=== PATIENT | female | born 1985 | race Caucasian/White ===

== ENCOUNTER 2017-07-29 10:15 | Outpatient (RCR) | payer OTHER, SELFPAY ==
--- NOTE | 2017-06-30 11:35 | MASS.EVAL ---
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 She reports today with the symptoms of having neck and shoulder pain and leg pain on the lateral sides bilaterally. Objective: The first treatment consisted of a one hour massage to the full body. Upon observation I found that she had high tension in her head neck and shoulder area. She had knots along the medial borders of her scapulaes. I also found that she high tension in her iltiotibial bands. Her cervical through lumbar paraspinals were tight and ropy as well as her latissimus dorsi muscles. Assessment: The patient seemed to easily relax and was able to tolerate deep pressure when needed. I was able to achieve a moderate release overall. Plan: The plan of care was reviewed with the patient and she is to be seen monthly for a total of ten 1-hour sessions for the year 2018. Sanjana Berrios LMT
--- NOTE | 2018-04-24 13:26 | MASS.DISCH ---
Massage Therapy Discharge Summary: Discharge Date: 04/24/2018 Lori was seen for a massotherapy evaluation on 06/29/2017 with the diagnosis of piriformis syndrome. She was treated with two sessions of massage therapy consisting of moderate to deep pressure soft tissue techniques, myofascial release and trigger point compression to her cervical, thoracic, lower back, upper extremities and hips. Lori responded well to the therapy by reporting decreased tension and pain throughout her neck, shoulders, lower back and hips. Her goals for therapy were not met due to no follow up treatment sessions performed. At this time this patient is being discharged from our care at [facility] facility.
== END 2017-07-29 19:00 | disposition home or self-care (01) ==
LOC: MASS 10:15
PROVIDERS: Family Provider Family Medicine; PCP Family Medicine; Visit Provider Family Medicine
DX: G57.00 Lesion of sciatic nerve, unspecified lower limb (principal)
CPT/HCPCS: 97124

== ENCOUNTER 2017-11-13 01:26 | Observation (INO) | payer OTHER, SELFPAY ==
[2017-11-13] VITALS (11 sets, daily range): BP systolic 96–109; BP diastolic 40–62; PULSE 77–89; RESP 16–18; TEMP 36.6–37.6; O2SAT 95–100; BMI 22.1; BMI 23.6
--- NOTE | 2017-11-13 01:47 | EKG12_ITS ---
Test Reason : N/V Blood Pressure : / mmHG Vent. Rate : 078 BPM Atrial Rate : 078 BPM P-R Int : 182 ms QRS Dur : 090 ms QT Int : 386 ms P-R-T Axes : -39 052 -05 degrees QTc Int : 440 ms Unusual P axis, possible ectopic atrial rhythm Abnormal ECG Confirmed by EVELYN MCCARTY, AMBER ([id number]), television news video editor NANCY SOLIS ([id number]) on 11/16/2017 1:14:08 PM Referred By: DANIELA Confirmed By:AMBER RIVAS MD
[2017-11-13 02:03] LABS: Absolute Lymphocyte Count 0.71 X10^3/ul (0.83-4.51); Absolute Neutrophil Count 13.3 X10^3/uL (2.0-7.7); Basophil# 0.01 X10^3/uL; Basophil% 0.1 % (0-1); Eosinophil# 0.03 X10^3/uL; Eosinophils% 0.2 % (0-5); Hematocrit 42.5 % (37-47); Hemoglobin 14.2 g/dl (12.0-15.0); Lymphocyte # 0.71 X10^3/ul (4.0); Mean Corp Hgb Conc 33.4 g/gl (32-36); Mean Corpuscular Hgb 32.7 pg (27.0-32.0); Mean Corpuscular Volume 97.9 fL (81-99); Mean Platelet Vol. 10.3 fl (6.2-12.0); Monocyte# 0.28 X10^3/uL; Neutrophil # 13.27 X10^3/uL (2.7-7.7); Neutrophil % 92.6 % (47-70); Platelet Count 195 K/mm3 (150-450); RBC Distribution Width CV 12.4 % (11.6-14.6); RBC Distribution Width SD 44.6 fl (35.1-43.9); Red Blood Count 4.34 M/mm3 (4.2-5.4); White Blood Count 14.3 K/mm3 (4.4-11.0)
[2017-11-13] MEDS: 0.9% Normal Saline 1,000 ML 1000 ML IV (02:04)
[2017-11-13] MEDS: proMETHazine 25 MG/ML Syringe 6.25 MG IV (02:05)
[2017-11-13 02:06] LABS: POSITIVE COUNT NO; POSITIVE DIFFERENTIAL NO; POSITIVE MORPHOLOGY NO
--- NOTE | 2017-11-13 02:31 | ED.VISSUMM ---
- ER Visit Summary Date of Service: 11/13/17 Chief Complaint: Vomiting and diarrhea History of Present Illness: The patient is a 32 F presenting with vomiting and diarrhea. Started earlier this evening. She states she has had multiple episodes of both vomiting and diarrhea. She has no known sick contacts. She was concerned about possibility of food poisoning. She states she ate a chocolate covered blueberry and thought that this may be related. She has mild diffuse abdominal cramping. She is unsure if she could be . After having several episodes of both vomiting and diarrhea she had a syncopal episode. She states she passed out twice and then later woke up on the floor of the bathroom. Her heard a noise and found her passed out on the floor. She states she passed out a total of 4-5 times. She denies chest pain or shortness of breath. Physical Examination: Vitals are stable. Patient is afebrile. Alert no acute distress. HEENT exam dry mucous membranes Neck is supple. Lungs are clear and equal bilaterally. Heart is regular rate and rhythm. Abdomen is soft mild diffuse tenderness with no rebound or guarding Extremities are unremarkable. Skin is warm and dry. No focal neurologic deficit. Remainder of exam is unremarkable. Emergency Department Course and Treatment: Patient is given IV fluids, Phenergan. EKG shows a regular rhythm with inverted P waves inferiorly. CBC shows white count of 14.3. Chemistries show glucose 147. Lipase is 110. Urinalysis unremarkable. Troponin is negative. D-dimer negative. Patient continues to have dizziness and nausea. Will discuss with hospitalist for admission. Disposition: Observation Impression: Vomiting and diarrhea, syncope, abnormal EKG This note was generated with [employer] dictation software. It may contain incorrect words, spelling, and punctuation that were not noted in review of the chart prior to signing ED Disposition - Plan for ED Patient: Chief Complaint: Nausea/Vomiting/Diarrhea Referrals: Jermain Mejia MD [Primary Care Provider] -
[2017-11-13 02:33] LABS: ALB/GLOB Ratio 1.1 RATIO (0.9-2.4); AST(SGOT) 18 U/L (15-37); Alanine Aminotransfer ALT/SGPT 20 U/L (13-56); Albumin, Serum 4.1 g/dL (3.2-5.0); Alkaline Phosphatase 62 U/L (45-117); Anion Gap 7 (5-15); BUN 17 mg/dL (7-18); BUN/Creat Ratio 19.8 RATIO (10-20); Calcium,Total 8.4 mg/dL (8.5-10.1); Chloride 108 mmol/L (98-107); Creatinine, Serum 0.86 mg/dL (0.55-1.02); EST Glomerular Filtration Rate 82 mL/min (>60); Est Glom Filt Rate - Afr Amer 100 mL/min (>60); Estimated Creatinine Clearance 86.07 ml/min; Globulin 3.7 g/dL (2.2-4.2); Glucose 147 mg/dL (74-106); Lipase 110 U/L (73-393); Potassium 3.8 mmol/L (3.5-5.1); Protein, Total 7.8 g/dL (6.4-8.2); Sodium Level 141 mmol/L (136-145)
[2017-11-13 02:35] LABS: Pregnancy, Serum, hCG Quali. NEGATIVE Negative (0-9 Nonpreg)
[2017-11-13 02:47] LABS: Bacteria 0 SEEN /hpf (None Seen); Red Blood Cells-Urine 0 SEEN /hpf (0-5)
[2017-11-13 02:49] LABS: Color, Urine Yellow (Yellow); Glucose, Dipstick Normal (Normal); Ketone-Dipstick Negative (Negative); Leukocyte Esterase-Dipstick Negative /ul (Negative); Nitrite-Dipstick Negative (Negative); Occult Blood-Urine Negative /ul (Negative); Protein-Dipstick 15 mg/dl (Negative); Urine Bilirubin Dipstick Negative (Negative); Urine Clarity Clear (Clear); Urine Urobilinogen Normal (Normal)
[2017-11-13 02:56] LABS: Mucous, Urine 3+ /hpf (<or=2+); Squamous Epithelial Cells - UA 5-10 SEEN /hpf (5-10); White Blood Cells 0-5 SEEN /hpf (0-5)
[2017-11-13] MEDS: 0.9% Normal Saline 1,000 ML 999 ML IV (03:00)
--- NOTE | 2017-11-13 05:19 | PCM.HP.STD ---
Problem List (1) Diarrhea Status: Acute (2) N&V (nausea and vomiting) Status: Acute (3) Syncope Status: Acute History of Present Illness Date of Admission: 11/13/17 Chief Complaint: Syncope The patient is a 32 year old female admitted for syncope. She is orthostatic. She had n/v and diarrhea after eating chocolate covered blueberry. She had food poisoning before but she was never orthostatic. She has diffuse abdominal pain that started around this evening. Abdominal pain is dull aching and cramping. Pain is mild to moderate. Pain is constant. Nothing made it better or worse. Each time she tried to get up, she got dizzy. She passed out multiple times. She knew she was going to pass out the first time but afterward, she does not remember and her found her on the floor. Past Medical History Allergies No Known Allergies Allergy (Verified 11/13/17 01:27) Home Medications: Ambulatory Orders Medication Instructions Recorded Vits [Prenatabs FA ] 1 tablet PO DAILY 08/04/16 Lactobacillus Combination No.4 1 each PO DAILY 11/13/17 [Probiotic] Lives: Spouse/ Significant Other Smoking Status: Never smoker Tobacco Use: Non-smoker Alcohol: None Drugs: None - *Family History Maternal History Items: No pertinent history Review of Systems Constitutional: Denies: Chills, Fever, Weight Change HEENT: Denies: Head Aches, Sinus Congestion, Sinus Drainage Cardiovascular: Denies: Chest Pain, Palpitations Respiratory: Denies: Cough, Shortness of breath at rest, Sputum production Gastrointestinal: Reports: Abdominal Pain, Diarrhea, Nausea, Vomiting Genitourinary: Denies: Dysuria Musculoskeletal: Denies: Joint Pain, Joint Tenderness Skin: Denies: Rash, Wounds Neurological: Denies: Numbness, Tingling, Focal weakness Psychiatric: Denies: Anxiety, Depression, Homicidal Ideations, Suicidal Ideations Hematologic/ Lymphatic: Denies: Easy Bruising, Easy Bleeding VTE Information - Inpt Only VTE Present on Admission: No VTE Mechan Device Prophylaxis: SCD's VTE Pharm Prophylaxis ordered?: Yes Patient Problems: Active and Suspected Problems Diarrhea (Acute) N&V (nausea and vomiting) (Acute) Syncope (Acute) - Physical Exam General: Alert, Oriented x3, Cooperative HEENT: Atraumatic, PERRLA, EOMI, Normocephalic Neck: Supple, No JVD, Negative Carotid Bruits Lungs: Clear to auscultation, Normal air movement Cardiovascular: Regular rate, No murmurs Abdomen: Bowel Sounds Present, Soft, Non Tender Extremities: No edema, Capillary Refill Less than 3 Seconds Skin: No rashes, No breakdown Musculoskeletal: No Tenderness to Palpation of Joints or Extremities Neurological: Cranial nerves II-XII grossly intact Psych/Mental Status: Normal Affect, Appropriate Vital Signs Temp Pulse Resp BP Pulse Ox 97.8 F 86 17 97/44 L 95 11/13/17 01:28 11/13/17 05:16 11/13/17 05:16 11/13/17 05:16 11/13/17 05:16 Oxygen Delivery Method Room Air Weight: 60.4 kg Body Mass Index (BMI) 22.1 Laboratory Tests Past 24 Hrs 11/13/17 11/13/17 11/13/17 01:25 01:25 01:25 WBC 14.3 H RBC 4.34 Hgb 14.2 Hct 42.5 MCV 97.9 MCH 32.7 H MCHC 33.4 RDW 12.4 RDW Differential 44.6 H Plt Count 195 MPV 10.3 Immature Gran % (Auto) 0.100 Neut % (Auto) 92.6 H Lymph % (Auto) 5.0 L [place] % (Auto) 2.0 Eos % (Auto) 0.2 Baso % (Auto) 0.1 Absolute Neuts (auto) 13.3 H Absolute Lymphs (auto) 0.71 L Total Counted Not Reportable D-Dimer Quant (PE/DVT) 0.30 Sodium 141 Potassium 3.8 Chloride 108 H Carbon Dioxide 26.0 Anion Gap 7 BUN 17 Creatinine 0.86 Estim Creat Clear Calc 86.07 Est GFR (MDRD) Af Amer 100 Est GFR (MDRD) Non-Af 82 BUN/Creatinine Ratio 19.8 Glucose 147 H Calcium 8.4 L Total Bilirubin 0.90 AST 18 ALT 20 Alkaline Phosphatase 62 Troponin I Total Protein 7.8 Albumin 4.1 Globulin 3.7 Albumin/Globulin Ratio 1.1 Lipase 110 Serum , Qual Urine Color Urine Clarity Urine pH Ur Specific [place] Urine Protein Urine Glucose (UA) Urine Ketones Urine Occult Blood Urine Nitrite Urine Bilirubin Urine Urobilinogen Ur Leukocyte Esterase Urine RBC Urine WBC Ur Squamous Epith Cells Urine Bacteria Urine Mucus 11/13/17 11/13/17 11/13/17 01:25 02:41 02:54 WBC RBC Hgb Hct MCV MCH MCHC RDW RDW Differential Plt Count MPV Immature Gran % (Auto) Neut % (Auto) Lymph % (Auto) [place] % (Auto) Eos % (Auto) Baso % (Auto) Absolute Neuts (auto) Absolute Lymphs (auto) Total Counted D-Dimer Quant (PE/DVT) Sodium Potassium Chloride Carbon Dioxide Anion Gap BUN Creatinine Estim Creat Clear Calc Est GFR (MDRD) Af Amer Est GFR (MDRD) Non-Af BUN/Creatinine Ratio Glucose Calcium Total Bilirubin AST ALT Alkaline Phosphatase Troponin I < 0.015 Total Protein Albumin Globulin Albumin/Globulin Ratio Lipase Serum , Qual NEGATIVE Urine Color Yellow Urine Clarity Clear Urine pH 6.0 Ur Specific [place] 1.020 Urine Protein 15 H Urine Glucose (UA) Normal Urine Ketones Negative Urine Occult Blood Negative Urine Nitrite Negative Urine Bilirubin Negative Urine Urobilinogen Normal Ur Leukocyte Esterase Negative Urine RBC 0 SEEN Urine WBC 0-5 SEEN Ur Squamous Epith Cells 5-10 SEEN Urine Bacteria 0 SEEN Urine Mucus 3+ Assessment/Plan All Active Problems Diarrhea (Acute) N&V (nausea and vomiting) (Acute) Syncope (Acute) 32 year old female admitted for syncope. 1) Syncope: Probably orthostatic hypotension. Will hydrate. Will also get trops. EKG disclosed inverted P waves inferiorly. Will get ECHO. 2) Diarrhea: Stool cultures and C.diff pending. Hydration. Monitor. 3) N/V: Probably food poisoning. Hydration. Monitor. 4) Prophylaxis: SCD / heparin.
[2017-11-13] MEDS: 0.9% Normal Saline 1,000 ML 150 ML IV ×2 (06:20→13:15)
[2017-11-13 06:58] LABS: Magnesium 1.8 mg/dL (1.6-2.6); Thyroid Stim Hormone (TSH) 0.45 uIU/mL (0.358-3.74)
[2017-11-13] MEDS: Prenatal Vits Tablet 1 TABLET PO (10:33)
--- NOTE | 2017-11-13 17:07 | DCINST_ITS ---
- Discharge Diagnoses Current Active Problems: Current Active and Chronic Problems Diarrhea (Acute) N&V (nausea and vomiting) (Acute) Syncope (Acute) You will use the following diet at home:: No restrictions Your food should be the consistency of: Regular Your liquids should be the consistency of: Regular/Thin Discharge Activity: Return to Normal Activity Return to work on:: 11/16/17 Weight Bearing Status: Full weight bearing Allergies/Adverse Reactions: Allergies No Known Allergies Allergy (Verified 11/13/17 01:27) Medications to take at Discharge Vits [Prenatabs FA ] 1 tablet PO DAILY 08/04/16 Lactobacillus Combination No.4 [Probiotic] 1 each PO DAILY 11/13/17 Ondansetron HCl [Zofran] 4 - 8 mg PO Q6H PRN PRN #15 tablet 11/13/17 The following prescriptions were given: Ondansetron HCl [Zofran] 4 - 8 mg PO Q6H PRN PRN #15 tablet PRN Reason: Nausea Primary Care Physician: Jermain Mejia MD [Primary Care Provider] - Please follow up with your Primary Care Physician in: as directed Test Results: Test results from this visit will be discussed in further detail at your follow- up appointment, if applicable.
--- NOTE | 2017-11-14 17:54 | PCM.DC.SUM ---
Discharge Date and Diagnosis Date of Admission: 11/13/17 Date of Discharge: 11/13/17 - Primary Discharge Diagnosis #1 acute viral gastroenteritis #2 syncope secondary to orthostasis from volume depletion Hospital Course and Treatment Operations: None Procedures: None Summary of Care Provided: The patient is a 32 year old F who was seen in the emergency room at [facility] with a chief complaint of vomiting and diarrhea along with an episodes of syncope after several episodes of vomiting and diarrhea. Patient stated that she passed out on the floor of her bathroom. She stated she thought she passed out a total of 4-5 times. Workup in the emergency room revealed the patient's temperature to be normal, blood pressure on admission to the emergency room was 109/62, labs were obtained which showed an elevated white blood cell count 14.3, BUN and creatinine were within normal limits. Patient was placed and observation status on MedSurg 3 and given IV fluids, stool culture was ordered and finally obtained from the patient, she had no more episodes of vomiting but one episode of loose stool while she was in the hospital. In the afternoon on 11/13/17, patient was seen and examined, at that time she was able to keep liquids down and some foods down, she had no complaints of nausea and there was no more episodes of diarrhea. Patient was felt to be in stable condition for discharge home, it was believed she had a viral gastroenteritis. Discharge Activity: Return to Normal Activity Return to work on:: 11/16/17 Weight Bearing Status: Full weight bearing Home Medications: Medications to take at Discharge Vits [Prenatabs FA ] 1 tablet PO DAILY 08/04/16 Lactobacillus Combination No.4 [Probiotic] 1 each PO DAILY 11/13/17 Ondansetron HCl [Zofran] 4 - 8 mg PO Q6H PRN PRN #15 tablet 11/13/17 Following Prescrptions Were Given to Patient: Ondansetron HCl [Zofran] 4 - 8 mg PO Q6H PRN PRN #15 tablet PRN Reason: Nausea Primary Care Physician: Jermain Mejia MD [Primary Care Provider] - Please follow up with your Primary Care Physician in: as directed Disposition: Home Minutes spent on discharge:: 30 Patient Condition:: Stable Medical Necessity - Tobacco Use Smoking Status: Never smoker Tobacco Use: Non-smoker Meaningful Use Info Meaningful Use Diagnoses (Choose all that apply): None applicable Code Visit OBSV E&M: 80232 Observ/hosp same date L3
== END 2017-11-13 19:02 | disposition home or self-care (01) ==
LOC: ED 02:12 → MS3 05:31
PROVIDERS: Admitting Provider Internal Medicine; Emergency Provider Emergency Medicine; Family Provider Family Medicine; PCP Family Medicine; Visit Provider Internal Medicine
DX: A08.4 Viral intestinal infection, unspecified (principal); R55 Syncope and collapse; R94.31 Abnormal electrocardiogram [ECG] [EKG]; E86.9 Volume depletion, unspecified
CPT/HCPCS: 36415; 80053; 81001; 83630; 83690; 83735; 84443; 84484; 84703; 85025; 85379; 87493; 87506; 93005; 96361; 96374; 99218; 99283; J7030; P9612; G0378

== ENCOUNTER → 2017-12-06 14:07 | Outpatient (CLI) | payer OTHER, SELFPAY ==
[2017-12-06 16:17] LABS: Vitamin D,25 Hydroxy 34.9 ng/mL (29.95-100.01)
[2017-12-09 13:18] LABS: EBV Acute VCA IgM < 36.0 U/mL (0.0-35.9); EBV Early Antigen IgG <9.0 U/mL (0.0-8.9); EBV-VCA IgG > 600.0 U/mL (0.0-17.9)
== END ==
PROVIDERS: Family Provider Family Medicine; PCP Family Medicine; Visit Provider Family Medicine
DX: R53.83 Other fatigue (principal)
CPT/HCPCS: 36415; 82306; 82533; 86663; 86664; 86665

== ENCOUNTER → 2017-12-28 13:24 | Outpatient (CLI) | payer OTHER, SELFPAY ==
[2017-12-28 17:59] LABS: Follicle Stimulating Hormone 0.7 mIU/mL; Prolactin 2.7 ng/mL
== END ==
PROVIDERS: Family Provider Family Medicine; PCP Family Medicine; Visit Provider Obstetrics & Gynecology
DX: N91.2 Amenorrhea, unspecified (principal)
CPT/HCPCS: 36415; 83001; 84146

== ENCOUNTER → 2018-01-24 16:35 | Outpatient (CLI) | payer OTHER, SELFPAY | PROVIDERS: Family Provider Family Medicine; PCP Family Medicine; Visit Provider Advanced Practice Midwife | DX: Z32.01 Encounter for pregnancy test, result positive (principal) | CPT/HCPCS: 36415; 84702 ==

== ENCOUNTER → 2018-02-14 08:49 | Outpatient (CLI) | payer OTHER, SELFPAY ==
[2018-02-14 10:32] LABS: Absolute Lymphocyte Count 1.52 X10^3/ul (0.83-4.51); Absolute Neutrophil Count 4.5 X10^3/uL (2.0-7.7); Basophil# 0.03 X10^3/uL; Basophil% 0.5 % (0-1); Eosinophils% 1.5 % (0-5); Hematocrit 36.4 % (37-47); Hemoglobin 12.4 g/dl (12.0-15.0); Lymphocyte # 1.52 X10^3/ul (4.0); Mean Corp Hgb Conc 34.1 g/gl (32-36); Mean Corpuscular Hgb 33.4 pg (27.0-32.0); Mean Corpuscular Volume 98.1 fL (81-99); Mean Platelet Vol. 10.3 fl (6.2-12.0); Monocyte# 0.43 X10^3/uL; Monocyte% 6.5 % (0-10); Neutrophil # 4.53 X10^3/uL (2.7-7.7); Neutrophil % 68.5 % (47-70); Platelet Count 247 K/mm3 (150-450); RBC Distribution Width CV 12.4 % (11.6-14.6); RBC Distribution Width SD 42.7 fl (35.1-43.9); Red Blood Count 3.71 M/mm3 (4.2-5.4); White Blood Count 6.6 K/mm3 (4.4-11.0)
[2018-02-14 10:40] LABS: POSITIVE COUNT NO; POSITIVE DIFFERENTIAL NO; POSITIVE MORPHOLOGY NO
[2018-02-14 11:44] LABS: HIV - WCH Non-Reactive (Nonreactive); Rubella IgG 58.7 IU/mL
[2018-02-16 05:43] LABS: Rapid Plasmin Reagin (RPR) NONREACTIVE (NONREACTIVE)
[2018-02-16 13:44] LABS: HEPATITIS B SURFACE AG Negative (Negative)
== END ==
PROVIDERS: Family Provider Family Medicine; PCP Family Medicine; Referring Provider Obstetrics & Gynecology; Visit Provider Obstetrics & Gynecology
DX: Z34.81 Encounter for supervision of other normal pregnancy, first trimester (principal); Z3A.08 8 weeks gestation of pregnancy
CPT/HCPCS: 85025; 86592; 86703; 86762; 86850; 86900; 87340

== ENCOUNTER 2018-08-01 15:30 | Outpatient (RCR) | payer OTHER, SELFPAY | END 2018-08-05 23:59 | LOC: DC 15:30 | PROVIDERS: Family Provider Family Medicine; PCP Family Medicine; Visit Provider Advanced Practice Midwife | DX: O24.410 Gestational diabetes mellitus in pregnancy, diet controlled (principal) | CPT/HCPCS: 97802; G0108 ==

== ENCOUNTER 2018-08-15 13:00 | Outpatient (RCR) | payer OTHER, SELFPAY ==
[2018-08-02 17:03] VITALS: BMI 27.6
== END 2018-08-15 23:59 | disposition home or self-care (01) ==
LOC: DC 13:00
PROVIDERS: Family Provider Family Medicine; PCP Family Medicine; Visit Provider Advanced Practice Midwife
DX: O24.410 Gestational diabetes mellitus in pregnancy, diet controlled (principal)

== ENCOUNTER 2018-09-11 19:07 | Inpatient (IN) | payer OTHER, SELFPAY ==
[2018-08-02 17:03] VITALS: BMI 27.6
[2018-09-11] MEDS: Lactated Ringers 1,000 ML 50 ML IV (19:40)
[2018-09-11] MEDS: 0.9% Saline Lock 10 ML Syringe IV (19:40)
[2018-09-11 19:46] VITALS: BMI 26.0
[2018-09-11 19:53] LABS: Absolute Lymphocyte Count 1.98 X10^3/ul (0.83-4.51); Absolute Neutrophil Count 7.6 X10^3/uL (2.0-7.7); Basophil# 0.02 X10^3/uL; Basophil% 0.2 % (0-1); Eosinophil# 0.07 X10^3/uL; Eosinophils% 0.7 % (0-5); Hematocrit 37.7 % (37-47); Lymphocyte # 1.98 X10^3/ul (4.0); Lymphocyte % 18.9 % (19-41); Mean Corp Hgb Conc 34.5 g/gl (32-36); Mean Corpuscular Hgb 34.1 pg (27.0-32.0); Mean Platelet Vol. 11.2 fl (6.2-12.0); Monocyte# 0.72 X10^3/uL; Monocyte% 6.9 % (0-10); Neutrophil # 7.63 X10^3/uL (2.7-7.7); Platelet Count 205 K/mm3 (150-450); RBC Distribution Width CV 12.7 % (11.6-14.6); RBC Distribution Width SD 44.2 fl (35.1-43.9); Red Blood Count 3.81 M/mm3 (4.2-5.4); White Blood Count 10.5 K/mm3 (4.4-11.0)
[2018-09-11 20:00] LABS: POSITIVE COUNT NO; POSITIVE DIFFERENTIAL NO; POSITIVE MORPHOLOGY NO
[2018-09-11 20:20] LABS: Bedside Glucose 111 mg/dL (70-110)
[2018-09-11 20:55] LABS: Bedside Glucose 86 mg/dL (70-110)
--- NOTE | 2018-09-11 23:30 | PCM.PN.BLA ---
Progress Note S: Patient comfortable O: cvx - cl/th/-2 vaginal cytotec placed fhts 125 with mod variability, accels tocos irritability A&P: Cytotec induction
[2018-09-12 00:51] LABS: Bedside Glucose 111 mg/dL (70-110)
[2018-09-12 01:55] LABS: Bedside Glucose 69 mg/dL (70-110)
[2018-09-12 02:51] LABS: Bedside Glucose 98 mg/dL (70-110)
[2018-09-12] MEDS: Nalbuphine 10 MG/ML Ampul IV (05:47)
[2018-09-12 06:46] LABS: Bedside Glucose 87 mg/dL (70-110)
[2018-09-12] MEDS: Oxytocin 30 units/NS 500 ml 30 UNITS/500 ML IV.SOLN 334 UNITS IV (07:14)
--- NOTE | 2018-09-12 07:32 | PCM.HP.OB ---
- Problem List (1) Gestational diabetes mellitus, class A1 Status: Acute (2) History of depression Status: Acute History Date of Admission: 09/11/18 Final KENNY: 09/14/18 Gestational age: 39 Weeks and 5 Days History of this : This is a 32 year-old, G [2], P [1001], at 39 weeks gestational age presented for IOL for Class A1 GDM. Medical History: Medical History (Last Reviewed 08/22/18 @ 11:27 by Priya Collazo) Fatigue R53.83 Gestational diabetes O24.419 Allergies No Known Allergies Allergy (Verified 09/11/18 19:46) Home Medications: Home Medications Vits [Prenatabs FA ] 1 tab PO DAILY 08/04/16 Lactobacillus Combination No.4 [Probiotic] 1 ea PO DAILY 11/13/17 Smoking Status: Never smoker Alcohol: None Heart Tracin, moderate variability, accels, variable decel, Category 2 History Past Pregnancies: Past Pregnancies Delivery Date Name GA/Weeks Outcome Route Weight Gender Labor Length Anesthesia Delivery Location Provider FOB Labs: GBS negative HBsAG negative Rubella Immune HIV negative A positive RPR non reactive GC/CT negative Urine tox screen negative Expected Infant Delivery Method: Spontaneous Vaginal Review of Systems Constitutional: Denies: Chills, Fever, Weight Change HEENT: Denies: Head Aches, Sinus Congestion, Sinus Drainage Cardiovascular: Denies: Chest Pain, Palpitations Respiratory: Denies: Cough, Shortness of breath at rest, Sputum production Gastrointestinal: Denies: Abdominal Pain, Nausea, Vomiting Genitourinary: Denies: Dysuria Psychiatric: Denies: Anxiety, Depression, Homicidal Ideations, Suicidal Ideations Physical Exam General: Alert, Oriented x3 HEENT: Atraumatic, Normocephalic Lungs: Normal air movement Extremities:: No edema 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 external genitalia Presentation: Cephalic Cervix Dilation (cm): 0 Station: -2 Effacement (%): 0 Assessment/Plan All Active Problems (Last Reviewed 08/22/18 @ 11:27 by Priya Collazo) Gestational diabetes mellitus, class A1 (Acute) History of depression (Acute) Segmental and somatic dysfunction of sacral region (Acute) Segmental and somatic dysfunction of thoracic region (Acute) Segmental and somatic dysfunction of cervical region (Acute) Segmental and somatic dysfunction of lumbar region (Acute) Diarrhea (Acute) N&V (nausea and vomiting) (Acute) Syncope (Acute) This is a 32 year-old, G [2], P [1001], at 39 weeks gestational age for induction of labor due to GDM Class A1 P: 1) Admit to L&D, routine labs, continuous monitoring. 2) Cytotec for cervical ripening. Will start Pitocin once favorable. 3) collaborative physician.
[2018-09-12] MEDS: Oxytocin 30 units/NS 500 ml 30 UNITS/500 ML IV.SOLN 167 UNITS IV (07:44)
--- NOTE | 2018-09-12 07:49 | OP.PCM_ITS ---
Problem List (1) Gestational diabetes mellitus, class A1 Status: Acute (2) History of depression Status: Acute Vaginal Delivery Maternal Presentation: Medically Indicated Induction Method of Induction: Cytotec Medical Reason for Induction: - - Gestational Diabetes, Class A1 Amniotic Membrane Rupture Type: Spontaneous Amniotic Fluid Description: Clear Final KENNY: 09/14/18 Gestational age: 39 Weeks and 5 Days Date of Procedure: 09/12/18 Pre-Operative Diagnosis: Induction of Labor Post-Operative Diagnosis: Vaginal Delivery Surgery/ Procedure Performed: Spontaneous Vaginal Delivery Type of Anesthesia: Local with 1% lidocaine Description of Procedure: Progressed to complete with strong urge to push. SROM for clear fluid. heart tones down to 70-80, maternal position changes with recovery. Maternal pushing efforts strong. Site Director at bedside. of viable female over 1st degree perineal laceration. APGARS 8,9. Head delivered and CANx2. Body forthcoming and delivered. placed on maternal abdomen. Mouth and nares suctioned for secretions and stimulated. Cord clamped and cut for hand off to peds team. Strong cry and infant able to stay skin to skin. Pitocin started for active 3rd stage management. Placenta delivered via maternal effort, gerber, intact, 3 vessel cord. Perineum inspected and revealed 1st degree perineal laceration. Repaired with lidocaine and 3.o vicryl. Well approximated and hemostasis achieved. Planning to breastfeed. Family bonding well. notified of delivery. Presentation: Vertex Placental Delivery Description: Spontaneous Placenta Disposition: [facility] Cord Vessel Description: 3 Vessels Cord Entanglement: Around neck x 2, loose Estimated Blood Loss: 300 ml A gender: Female (1 minute): 8 (5 minute): 9 Episiotomy Description: None Laceration: Perineal Extension/lac, 1st degree Medications given after delivery: IV Pitocin
[2018-09-12 08:05] LABS: Bedside Glucose 79 mg/dL (70-110)
[2018-09-12 12:58] VITALS: BP 103/57; PULSE 63; RESP 18; TEMP 36.8; O2SAT 96
[2018-09-12] MEDS: Ibuprofen 600 MG Tablet PO (14:04)
[2018-09-12] MEDS: Senna/Docusate Sodium 1 Tablet PO (14:05)
[2018-09-12 17:30] VITALS: BP 129/65; PULSE 75; RESP 18; TEMP 36.8; O2SAT 98
[2018-09-12 19:40] VITALS: BP 119/62; PULSE 68; RESP 16; TEMP 36.7; O2SAT 98
[2018-09-12] MEDS: Acetaminophen 500 MG Tablet 1000 MG PO (23:30)
[2018-09-12 23:40] VITALS: BP 106/58; PULSE 78; RESP 18; TEMP 35.8; O2SAT 98
[2018-09-13 04:15] VITALS: BP 105/55; PULSE 67; RESP 18; TEMP 35.6
[2018-09-13 06:40] LABS: Bedside Glucose 77 mg/dL (70-110)
[2018-09-13 06:45] LABS: Hematocrit 36.8 % (37-47); Hemoglobin 12.4 g/dl (12.0-15.0); Mean Corp Hgb Conc 33.7 g/gl (32-36); Mean Corpuscular Hgb 34.1 pg (27.0-32.0); Mean Corpuscular Volume 101.1 fL (81-99); Mean Platelet Vol. 10.8 fl (6.2-12.0); Platelet Count 193 K/mm3 (150-450); RBC Distribution Width CV 12.9 % (11.6-14.6); RBC Distribution Width SD 46.2 fl (35.1-43.9); Red Blood Count 3.64 M/mm3 (4.2-5.4); Scan Indicated on CBC? Y/N NO; White Blood Count 11.2 K/mm3 (4.4-11.0)
--- NOTE | 2018-09-13 08:19 | DCINST_ITS ---
Discharge Diet: No Restrictions Discharge Activity: Return to Normal Activity, May not drive while taking narcotic pain medications., May Shower May resume sexual activity in: 4-6 weeks Additional Activity Instructions:: Nothing in the vagina for 4-6 weeks. You may return to work/school in 6 weeks. Call your doctor if your incision/area has: Continuous Slow Oozing, Sudden Increased Bleeding, Increased Pain/ Swelling, Increased Redness, Foul Smelling Discharge Call your doctor if you observe: Fever of 101 or Higher, Inability to urinate, Inability to have a bowel movement, Using more than one pad per hour Additional Instructions: If you experience any of the following, contact your healthcare provider. * Bleeding that soaks a pad every hour for 2 hours * Fever 100.4 or higher * Unrelieved incision or abdominal pain * Swelling, redness, discharge or bleeding from your incision or episiotomy site * Your incision begins to separate * Problems urinating (including inability to urinate or burning while urinating). * Visual changes * Severe headache * Flu-like symptoms * Pain or redness in one of both of your breasts * Pain, warmth, tenderness or swelling in your legs, especially the calf area * Frequent nausea and vomiting * Symptoms of depression or anxiety If you experience any of the following, call 911 or go to the nearest Emergency Room. * Chest pain * Problems breathing * Seizure activity * Partial or complete paralysis of a body part, slurred speech, weakness or drooping of the face, or a sudden inability to walk or hold your balance Allergies/Adverse Reactions: Allergies No Known Allergies Allergy (Verified 09/11/18 19:46) Medications to take at Discharge Vits [Prenatabs FA ] 1 tab PO DAILY 08/04/16 Lactobacillus Combination No.4 [Probiotic] 1 ea PO DAILY 11/13/17 Please Follow Up With: Joana Ocampo CNM When: Call to make an appointment with your provider in 2 and 6 weeks . Primary Care Physician: Jermain Mejia MD [Primary Care Provider] - Test Results: Test results from this visit will be discussed in further detail at your follow- up appointment, if applicable. Proposed Discharge Date: 09/13/18
--- NOTE | 2018-09-13 08:19 | PCM.PN.OB ---
Patient Problems: Active and Suspected Problems (Last Reviewed 08/22/18 @ 11:27 by Priya Collazo) Gestational diabetes mellitus, class A1 (Acute) History of depression (Acute) Subjective: Patient laying back in bed, reports sleep on and off over night. Reports that overall she feels well. Denies issues with urination and ambulation. Denies PHAM, denies scotoma, denies severe abdominal pain. + flatus passed but patient is still waiting on first bowel movement post delivery; she has been taking stool softeners. Patient reports baby is latching okay, desires to work with this morning to help perfect latch. Objective: VSS, Afebrile Nipples without cracks or blisters, no erythema noted Abdomen NT x 4 quadrants, FF midline at 2FB below umbilicus +2/4 reflexes in LE, no edema in LE, neg calf tenderness scant rubra lochia, perineum well-approximated - Physical Exam General: Alert, Oriented x3, Cooperative HEENT: Atraumatic, Normocephalic Neck: Supple Lungs: Normal air movement Cardiovascular: Regular rate, Regular Rhythm Abdomen: Soft, Non Tender Extremities: No edema, Capillary Refill Less than 3 Seconds Skin: No rashes, No breakdown Musculoskeletal: No Tenderness to Palpation of Joints or Extremities Neurological: Cranial nerves II-XII grossly intact Psych/Mental Status: Normal Affect, Appropriate Vital Signs Temp Pulse Resp BP Pulse Ox 96.0 F L 67 18 105/55 L 98 09/13/18 04:15 09/13/18 04:15 09/13/18 04:15 09/13/18 04:15 09/12/18 23:40 Oxygen Delivery Method Room Air Weight: 156 lb 8.451 oz Body Mass Index (BMI) 26.0 Intake and Output for Last 24 Hours 09/11/18 09/12/18 09/13/18 23:59 23:59 23:59 Intake Total 500 / 500 Output Total 850 / 850 Balance -350 / -350 Laboratory Tests Past 24 Hrs 09/13/18 06:35 WBC 11.2 H RBC 3.64 L Hgb 12.4 Hct 36.8 L MCV 101.1 H MCH 34.1 H MCHC 33.7 RDW 12.9 RDW Differential 46.2 H Plt Count 193 MPV 10.8 POC Glucose 09/13/18 06:31 POC Glucose 77 Medical Necessity - Tobacco Use Smoking Status: Never smoker Assessment/Plan All Active Problems (Last Reviewed 08/22/18 @ 11:27 by Priya Collazo) Gestational diabetes mellitus, class A1 (Acute) History of depression (Acute) Segmental and somatic dysfunction of sacral region (Acute) Segmental and somatic dysfunction of thoracic region (Acute) Segmental and somatic dysfunction of cervical region (Acute) Segmental and somatic dysfunction of lumbar region (Acute) Diarrhea (Acute) N&V (nausea and vomiting) (Acute) Syncope (Acute) 32 y/o s/po , PPD #1 1) Discahrge to home today. Sasha MARKS
[2018-09-13] MEDS: Ibuprofen 600 MG Tablet PO ×2 (09:46→20:50)
[2018-09-13] MEDS: Senna/Docusate Sodium 1 Tablet PO (09:47)
[2018-09-13 10:00] VITALS: BP 107/62; PULSE 77; RESP 14; TEMP 36.4
[2018-09-13 14:00] VITALS: BP 104/76; PULSE 76; RESP 14; TEMP 36.8
--- NOTE | 2018-09-13 16:02 | CASEMGMT ---
Social Work Brief Assessment - Labor and Delivery Unit Date of Referral/Notification: 09/12/2018 Time of Referral: 1203 Referred By: Joana Ocampo nurse training manager Reason for Referral: maternal history of depression and anxiety Date of Intervention: 09/13/2018 Time of Intervention: 1500 Informant: Medical record and mother of baby (MOB) ; father of baby (FOB) also present History: JENNY is a 32-year-old female, G2, P1 to 2 after delivering baby girl Kailey Agarwal this admission. care started at 8 weeks gestation. MOB with gestational diabetes during . Baby born weighing 8 pounds 1 ounces. Apgars 8 and 9 at 1 and 5 minutes of life. MOB is to PEGGY Agarwal, age 36. Both MOB and FOB are gainfully employed outside the home. Home situation is reported to be adequate as the family just bought and moved to a new home in May. Besides MOB and FOB, MOB and FOB's oldest child Gretta (born 2017) is in the home. MOB with college education. No reported issues with learning/reading/writing. No reported issues with transportation. Chart indicates no history or concerns for abuse in the home. Chart indicates MOB with history of depression and anxiety. Noted MOB was seen by social work after first for PHQ9 scoring. MOB reports may have had some baby blues after Gretta was born but managed okay. At about when Gretta was 1, MOB decided to go to counseling, at [facility], more for anxiety than for depression. MOB reports this has been helpful and plans to continue as needed in the period. Assessment: MOB reports to have needed baby supplies at home going, including safe sleep space and car seat. FOB has a week off of work to help out and then MOB?s mom is available to come over and help as needed. MOB reports counseling has been helpful and intends to return in the period. MOB reports to be feeling good right now and knows a trigger to MOB?s mood is lack of sleep. MOB reports is more willing to pump and save milk so as to help allow for MOB to have more time to get sleep, and to allow others to help with feedings when needed. Educated MOB and FOB on depression and anxiety, and provided packet of information and some resources both online and locally should MOB need anything further in the future. MOB accepting of information offered and denies any further concerns for home going. MOB had baby to breast during social work visit, handled baby gently and appropriately. MOB with good eye contact, appropriate affect and pleasant demeanor. FOB quiet overall, providing input when engaged with. Plan: MOB and baby to home when ready for discharge. MOB will have help from family with transition home. depression packet with online and local resources has been given. No further needs requested or indicated. -CHELA Duff, PILLOWCASE TURNER
[2018-09-13 20:35] VITALS: BP 117/62; PULSE 75; RESP 18; TEMP 36; O2SAT 99
--- NOTE | 2018-09-13 22:00 | NURSING ---
Report given to Teresa MARTINS, assuming care at this time.
[2018-09-14 02:29] VITALS: BP 115/63; PULSE 72; RESP 15; TEMP 37; O2SAT 95
[2018-09-14] MEDS: Ibuprofen 600 MG Tablet PO ×2 (02:32→08:45)
[2018-09-14 08:45] VITALS: BP 102/57; PULSE 88; RESP 16; TEMP 36.4; O2SAT 97
--- NOTE | 2018-09-14 09:06 | PCM.PROGNOTE ---
Patient Problems: Active and Suspected Problems (Last Reviewed 08/22/18 @ 11:27 by Priya Collazo) Gestational diabetes mellitus, class A1 (Acute) History of depression (Acute) Subjective: Feeling well. Denies headache, visual changes, chest pain, SOB, increased vaginal bleeding or clots. Pain controlled well. without difficulty. Planning D/C home today. - Physical Exam General: Alert, Oriented x3, Cooperative HEENT: Atraumatic, Normocephalic Neck: Trachea Midline Lungs: Clear to auscultation, Normal air movement, No rhonchi, No wheeze Cardiovascular: Regular rate, Regular Rhythm, No murmurs Abdomen: Bowel Sounds Present, Soft, - - Fundus firm 3 below U Extremities: No edema - Patricia's negative Psych/Mental Status: Normal Affect, Appropriate Vital Signs Temp Pulse Resp BP Pulse Ox 97.5 F L 88 16 102/57 L 97 09/14/18 08:45 09/14/18 08:45 09/14/18 08:45 09/14/18 08:45 09/14/18 08:45 Oxygen Delivery Method Room Air Weight: 156 lb 8.451 oz Body Mass Index (BMI) 26.0 Intake and Output for Last 24 Hours 09/12/18 09/13/18 09/14/18 23:59 23:59 23:59 Intake Total 500 / 500 Output Total 850 / 850 Balance -350 / -350 Medical Necessity - Tobacco Use Smoking Status: Never smoker Assessment/Plan All Active Problems (Last Reviewed 08/22/18 @ 11:27 by Priya Collazo) Gestational diabetes mellitus, class A1 (Acute) History of depression (Acute) Segmental and somatic dysfunction of sacral region (Acute) Segmental and somatic dysfunction of thoracic region (Acute) Segmental and somatic dysfunction of cervical region (Acute) Segmental and somatic dysfunction of lumbar region (Acute) Diarrhea (Acute) N&V (nausea and vomiting) (Acute) Syncope (Acute) A:PPD #2 P: 1) D/C home 2) Discharge and instructions reviewed.
[2018-09-14] MEDS: Senna/Docusate Sodium 1 Tablet PO (10:21)
--- NOTE | 2018-09-19 18:34 | NURSING ---
On follow up phone call baby eating well . Mother doing well. States Torre was helpful.
== END 2018-09-14 12:30 | disposition home or self-care (01) | DRG 807 ==
PROVIDERS: Advanced Practice Midwife; Admitting Provider Obstetrics & Gynecology; Family Provider Family Medicine; PCP Family Medicine; Referring Provider Obstetrics & Gynecology; Visit Provider Obstetrics & Gynecology
DX: O24.429 Gestational diabetes mellitus in childbirth, unspecified control (principal); O69.81X0 Labor and delivery complicated by cord around neck, without compression, not applicable or unspecified; O70.0 First degree perineal laceration during delivery; Z3A.39 39 weeks gestation of pregnancy; Z37.0 Single live birth
CPT/HCPCS: 59025; 59050; 82962; 85025; 85027; 86850; 86900; 99218; J7120; A4216; G0378

== ENCOUNTER → 2018-11-19 09:08 | Outpatient (CLI) | payer OTHER, SELFPAY ==
[2018-11-19 11:08] LABS: Glucose 75GTT - Fasting 79 mg/dL (70-99)
[2018-11-19 11:30] LABS: Glucose 75GTT - 30 minutes 140 mg/dL (100-160)
[2018-11-19 11:52] LABS: Glucose 75GTT - 60 minutes 140 mg/dL (100-160)
[2018-11-19 13:23] LABS: Glucose 75GTT - 120 minutes 85 mg/dL (70-140)
== END ==
PROVIDERS: Family Provider Family Medicine; PCP Family Medicine; Referring Provider Advanced Practice Midwife; Visit Provider Advanced Practice Midwife
DX: Z86.32 Personal history of gestational diabetes (principal)
CPT/HCPCS: 36415; 82951; 82952

== ENCOUNTER 2019-03-22 10:34 | Outpatient (RCR) | payer OTHER, SELFPAY ==
--- NOTE | 2019-04-26 15:15 | MASS.EVAL_ITS ---
Massage Therapy Evaluation: Initial Evaluation Date: 03/22/2019 SUBJECTIVE: Lori is a 33 year old female who was referred to the [facility] for a massotherapy evaluation by Dr. Ocampo with the diagnosis of neck and shoulder pain. Lori presents today with the symptoms of pain, stiffness and tension in her neck and mid back. Lori reports having a past medical history of pain and tension in her neck and shoulders related to her posture at work. She reports that she is currently nursing her baby and has another child that she carries around. OBJECTIVE: Upon observation Lori has some posture issues with her head and shoulders forward from the neutral position in sitting and standing. After examination and palpation I found Lori to have high muscle tension with tenderness and myofascial restrictions in her sub occipitals, levator scapulae, trapezius, rhomboids, scalenes, and thoracic paraspinals. Her QL?s, lumbar paraspinals, piriformis, glute medius and minimus all were very tight with fascial restrictions, tender points and trigger points. The first treatment consisted of a one hour massage to her full body with myofascial release, muscle stripping, trigger point compression techniques, and cervical manual traction. ASSESSMENT: I feel that Lori is a good candidate for massotherapy at this time. She had a favorable response to the first treatment with reduction in her muscle aches, pain and tension. She also had improvement in her cervical flexibility and low back flexibility. PLAN: The plan of care was reviewed with the patient. The patient is to be seen on an as needed basis for a total of ten sessions with the recommendation of once every month for a one hour treatment.
--- NOTE | 2019-04-26 15:19 | DS.PCM_ITS ---
Massage Therapy Discharge Summary: Discharge Date: 04/26/2019 Lori was seen for a massotherapy evaluation on 03/22/2019 with the diagnosis of neck and shoulder pain. She was treated with one sessions of massage therapy consisting of moderate to deep pressure soft tissue techniques, myofascial release and trigger point compression to her cervical, thoracic, lower back, upper extremities, lower extremities and hips. Lori responded well to the therapy by reporting decreased tension and pain throughout her head, neck, shoulders, lower back and hips. At this time this patient is being discharged from our care at [facility] facility.
== END 2019-03-22 19:00 | disposition home or self-care (01) ==
LOC: MASS 10:34
PROVIDERS: Family Provider Family Medicine; PCP Family Medicine; Referring Provider Advanced Practice Midwife; Visit Provider Advanced Practice Midwife
DX: M54.9 Dorsalgia, unspecified (principal); M54.2 Cervicalgia; M25.519 Pain in unspecified shoulder
CPT/HCPCS: 97124

== ENCOUNTER 2019-05-30 13:16 | Outpatient (RCR) | payer OTHER, SELFPAY ==
--- NOTE | 2019-03-27 16:31 | MASS.EVAL ---
Massage Therapy Evaluation: Initial Evaluation Date: 03/22/2019 SUBJECTIVE: Lori is a 33 year old female who was referred to the [facility] for a massotherapy evaluation by Dr. Ocampo with the diagnosis of neck, shoulder and back pain. Lori presents today with the symptoms of pain, stiffness and tension in her neck and mid back. Lori reports having a past medical history of pain and tension in her neck and shoulders related to her posture at work. She reports that she is currently nursing her baby that contributes to the shoulder pain. She reports having minimal improvement with exercise and stretching. OBJECTIVE: Upon observation Lori has some posture issues with her head and shoulders forward from the neutral position in sitting and standing. After examination and palpation I found Lori to have high muscle tension with tenderness and myofascial restrictions in her sub occipitals, levator scapulae, trapezius, rhomboids, scalenes, and thoracic paraspinals. Her QL?s, lumbar paraspinals, piriformis, glute medius and minimus all were very tight with fascial restrictions, tender points and trigger points. The first treatment consisted of a one hour massage to her full body with myofascial release, muscle stripping, trigger point compression techniques, and cervical manual traction. ASSESSMENT: I feel that Lori is a good candidate for massotherapy at this time. She had a favorable response to the first treatment with reduction in her muscle aches, pain and tension. She also had improvement in her cervical flexibility and low back flexibility. PLAN: The plan of care was reviewed with the patient. The patient is to be seen on an as needed basis for a total of ten sessions with the recommendation of once every month for a one hour treatment.
[2019-05-28 16:29] VITALS: BMI 26.0
--- NOTE | 2019-06-01 08:09 | MASS.EVAL ---
Massage Therapy Evaluation: INITIAL EVALUATION: DATE: 05/30/2019 PT NAME: KATHYA ROWE :1985 V#: [id number] REF PHYS: DR. 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 CONTRERAS WITH THE DIAGNOSIS OF BACK, NECK, AND SHOULDER PAIN. SHE PRESENTS TODAY WITH SYMPTOMS OF TIGHTNESS IN THE BACK OF NECK INTO RHOMBOID AREA, AND ACROSS THE TOP OF THE SHOULDERS. THE SYMPTOMS COMMENCED DUE TO HOLDING STRESS IN THE SHOULDERS AND / HOLDING HER BABY. KATHYA RATES HER HEALTH TO BE IN GREAT CONDITION WITH NO LIMITATIONS IN HER DAILY ACTIVITIES. OBJECTIVE: THE FIRST TREATMENT CONSISTED OF AN UPPER BODY MASSAGE WITH DEEP TO MODERATE PRESSURE. I FOCUSED ON THE SUBOCCIPITALS, SCALENES, SCM, CERVICA AND THORACIC PARASPINALS, UPPER TRAPEZIUM, LEVATOR, RHOMBOIDS, LOWER BACK, AND PECTORALS. WELL MASSAGING THE ARMS. TRIGGER POINT THERAPY WAS PERFORMED IN THE UPPER TRAPEZIUM AND RHOMBOID AREAS. ASSESSMENT: THE PATIENT WAS NOT VERY TENDER TO THE TOUCH. SHE DID HAVE NATURAL MYOFASCIAL MOVEMENT. THE MUSCLES WERE MORE TIGHT AND ROPEY IN THE INTERSCAPULAR AREA AND UPPER TRAPS. THE PATIENTS MUSCLES RELEASED WELL AND I FEEL THE STRESS LEVEL DECREASED POST THE MASSAGE. I FEEL THAT KATHYA IS A GREAT CANDIDATE FOR MASSOTHERAPY AT THIS TIME. PLAN: THE PLAN OF CARE WAS REVIEWED WITH THE PATIENT. THE PATIENT IS TO BE SEEN ON A REGULAR MONTHLY BASIS FOR A ONE HOUR SESSION OF MASSOTHERAPY WITH A REGULAR STRETCHING PROGRAM.
--- NOTE | 2020-04-16 08:55 | DS.PCM_ITS ---
Massage Therapy Discharge Summary: DATE: 04/16/20 PT NAME: KATHYA ROWE V# [id number] : [birth year] REF PHYS: BEN THE PATIENT WAS SEEN FOR MASSOTHERAPY EVALUATION ON 05/30/19 WITH A DIAGNOSIS BACK AND SHOULDER PAIN. THE PATIENT WAS TREATED WITH ONE SESSION OF MASSAGE CONSISTING OF A DEEP TISSUE AND TRIGGER POINT. AT THIS TIME I AM DISCHARGING THE PATIENT FROM OUR CARE AT THE [facility]. BUDDY BURGESS LMT
== END 2019-05-30 19:00 | disposition home or self-care (01) ==
LOC: MASS 13:16
PROVIDERS: Family Provider Family Medicine; PCP Family Medicine; Referring Provider Advanced Practice Midwife; Visit Provider Advanced Practice Midwife
DX: M54.9 Dorsalgia, unspecified (principal); M54.2 Cervicalgia; M25.519 Pain in unspecified shoulder
CPT/HCPCS: 97124

== ENCOUNTER 2020-01-22 11:22 | Outpatient (RCR) | payer OTHER, SELFPAY ==
[2019-12-05 09:23] VITALS: BMI 26.0
== END 2020-02-05 23:59 ==
LOC: EMPH 11:22
PROVIDERS: PCP Family Medicine; Visit Provider Family Medicine Geriatric Medicine
DX: Z11.59 Encounter for screening for other viral diseases (principal)
CPT/HCPCS: 87635; U0003

== ENCOUNTER 2020-03-05 11:36 | Outpatient (RCR) | payer OTHER, SELFPAY ==
[2019-12-05 09:23] VITALS: BMI 26.0
== END 2020-03-07 23:59 ==
LOC: EMPH 11:36
PROVIDERS: PCP Family Medicine; Referring Provider Family Medicine Geriatric Medicine; Visit Provider Family Medicine Geriatric Medicine
DX: Z03.818 Encounter for observation for suspected exposure to other biological agents ruled out (principal)
CPT/HCPCS: 87426

== ENCOUNTER 2020-04-01 10:05 | Outpatient (RCR) | payer OTHER, SELFPAY ==
[2019-12-05 09:23] VITALS: BMI 26.0
== END 2020-04-06 23:59 ==
LOC: EMPH 10:05
PROVIDERS: PCP Family Medicine; Referring Provider Family Medicine Geriatric Medicine; Visit Provider Family Medicine Geriatric Medicine
DX: Z03.818 Encounter for observation for suspected exposure to other biological agents ruled out (principal)
CPT/HCPCS: 87426

== ENCOUNTER 2020-05-06 14:23 | Outpatient (RCR) | payer OTHER, SELFPAY ==
[2019-12-05 09:23] VITALS: BMI 26.0
== END 2020-05-07 23:59 ==
LOC: EMPH 14:23
PROVIDERS: PCP Family Medicine; Referring Provider Family Medicine Geriatric Medicine; Visit Provider Family Medicine Geriatric Medicine
DX: Z03.818 Encounter for observation for suspected exposure to other biological agents ruled out (principal)
CPT/HCPCS: 87426

== ENCOUNTER 2020-05-27 11:50 | Outpatient (RCR) | payer OTHER, SELFPAY ==
[2019-12-05 09:23] VITALS: BMI 26.0
== END 2020-06-07 23:59 ==
LOC: EMPH 11:50
PROVIDERS: PCP Family Medicine; Referring Provider Family Medicine Geriatric Medicine; Visit Provider Family Medicine Geriatric Medicine
DX: Z03.818 Encounter for observation for suspected exposure to other biological agents ruled out (principal)
CPT/HCPCS: 87426

== ENCOUNTER 2020-06-24 12:41 | Outpatient (RCR) | payer OTHER, SELFPAY ==
[2019-12-05 09:23] VITALS: BMI 26.0
== END 2020-07-05 23:59 ==
LOC: EMPH 12:41
PROVIDERS: PCP Family Medicine; Referring Provider Family Medicine Geriatric Medicine; Visit Provider Family Medicine Geriatric Medicine
DX: Z03.818 Encounter for observation for suspected exposure to other biological agents ruled out (principal)
CPT/HCPCS: 87426

== ENCOUNTER 2020-07-29 12:01 | Outpatient (RCR) | payer OTHER, SELFPAY ==
[2019-12-05 09:23] VITALS: BMI 26.0
== END 2020-08-05 23:59 ==
LOC: EMPH 12:01
PROVIDERS: PCP Family Medicine; Referring Provider Family Medicine Geriatric Medicine; Visit Provider Family Medicine Geriatric Medicine
DX: Z03.818 Encounter for observation for suspected exposure to other biological agents ruled out (principal)
CPT/HCPCS: 87426

== ENCOUNTER 2020-08-19 11:21 | Outpatient (RCR) | payer OTHER, SELFPAY | END 2020-09-04 23:59 | LOC: EMPH 11:21 | PROVIDERS: PCP Family Medicine; Referring Provider Family Medicine Geriatric Medicine; Visit Provider Family Medicine Geriatric Medicine | DX: Z03.818 Encounter for observation for suspected exposure to other biological agents ruled out (principal) | CPT/HCPCS: 87426 ==

== ENCOUNTER 2020-09-29 13:42 | Outpatient (RCR) | payer OTHER, SELFPAY ==
[2020-09-08 08:52] VITALS: BMI 26.0
== END 2020-10-05 23:59 ==
LOC: EMPH 13:42
PROVIDERS: PCP Family Medicine; Referring Provider Family Medicine Geriatric Medicine; Visit Provider Family Medicine Geriatric Medicine
DX: Z03.818 Encounter for observation for suspected exposure to other biological agents ruled out (principal)
CPT/HCPCS: 87426

== ENCOUNTER 2020-10-15 11:43 | Outpatient (RCR) | payer OTHER, SELFPAY ==
[2020-09-21 16:15] VITALS: BMI 26.0
[2020-10-06 16:12] VITALS: BMI 26.0
== END 2020-11-04 23:59 ==
LOC: EMPH 11:43
PROVIDERS: PCP Family Medicine; Referring Provider Family Medicine Geriatric Medicine; Visit Provider Family Medicine Geriatric Medicine
DX: Z03.818 Encounter for observation for suspected exposure to other biological agents ruled out (principal)
CPT/HCPCS: 87426

== ENCOUNTER 2020-10-16 23:40 | Inpatient (IN) | payer OTHER, SELFPAY ==
[2020-09-08 08:52] VITALS: BMI 26.0
[2020-10-13 16:23] VITALS: BMI 26.0
[2020-10-16 23:45] VITALS: BMI 28.8
[2020-10-16 23:59] VITALS: BP 132/74; PULSE 84; TEMP 37; O2SAT 97; O2SAT 98
[2020-10-17] VITALS (28 sets, daily range): BP systolic 100–129; BP diastolic 52–68; PULSE 72–96; RESP 15–18; TEMP 36.1–37.1; O2SAT 89–98
[2020-10-17] MEDS: 0.9% Saline Lock 10 ML Syringe IV ×3 (00:35→05:38)
[2020-10-17 00:51] LABS: Bedside Glucose 82 mg/dL (70-110)
[2020-10-17 00:53] LABS: Absolute Lymphocyte Count 1.49 X10^3/uL (0.83-4.51); Absolute Neutrophil Count 6.6 X10^3/uL (2.0-7.7); Basophil# 0.04 X10^3/uL; Basophil% 0.4 % (0-1); Eosinophil# 0.06 X10^3/uL; Eosinophils% 0.7 % (0-5); Hematocrit 35.9 % (37-47); Hemoglobin 12.3 g/dL (12.0-15.0); Lymphocyte # 1.49 X10^3/ul (0.83-4.51); Lymphocyte % 16.2 % (19-41); Mean Corp Hgb Conc 34.3 g/dL (32-36); Mean Corpuscular Hgb 33.8 pg (27.0-32.0); Mean Corpuscular Volume 98.6 fL (81-99); Mean Platelet Vol. 10.2 fl (6.2-12.0); Monocyte# 0.96 X10^3/uL; Monocyte% 10.4 % (0-10); NRBC Flagged by Analyzer 0 % (0-5); Neutrophil # 6.58 X10^3/uL (2.7-7.7); Neutrophil % 71.6 % (47-70); Platelet Count 232 K/mm3 (150-450); RBC Distribution Width CV 12.6 % (11.6-14.6); RBC Distribution Width SD 45.6 fl (35.1-43.9); Red Blood Count 3.64 M/mm3 (4.2-5.4); White Blood Count 9.2 K/mm3 (4.4-11.0)
[2020-10-17] MEDS: Oxytocin 30 units/NS 500 ml 30 UNITS/500 ML IV.SOLN 334 UNITS IV (02:54)
--- NOTE | 2020-10-17 03:04 | EX.PCM.OBRPT ---
Assessment & Plan (1) Normal vaginal delivery: Maternal Data Information Final KENNY: 10/24/20 Final KENNY Source: US <20 weeks Vaginal Delivery Maternal Presentation Maternal Presentation: Active Labor and Spontaneous Rupture of Membranes Operative Information Date of Procedure: 10/17/20 Pre-Operative Diagnosis: labor, gestational diabetes on insulin Post-Operative Diagnosis: same Surgery / Procedure Performed: Spontaneous Vaginal Delivery Type of Anesthesia: None Special Medications: none Drain: Jackson to straight drain Estimated Blood Loss: 300 Time of Delivery: 02:50 Findings Description of Procedure: of vigorous male ARLEY over intact perineum. Loose nuchal cord x 2 easily reduced. Remainder of infant delivered with maternal pushing efforts and minimal downward traction in < 15 seconds without diffulty. Spont. delivery of placenta intact with 3 vessel cord. Cervix and vagina intact. Vaginal sweep completed by me. Sponge and needle count correct. Presentation: ARLEY Amniotic Membrane Rupture Type: Spontaneous Amniotic Fluid Description: Clear Placental Delivery Description: Spontaneous Placenta Disposition: [facility] Specimen(s) Removed: none Cord Vessel Description: 3 Vessels Cord Entanglement: Around neck x 2, loose Nuchal Cord Compression: Without compression A Gender: Male (1 minute): 8 (5 minute): 9 Delayed Cord Clamping: Yes Post Vaginal Delivery Medications Given After Delivery: IV Pitocin Episiotomy Description: None Laceration: None Complication Complications: None
--- NOTE | 2020-10-17 03:07 | PCM.HP.BLA ---
History and Physical Date of Admission: 10/17/20 35YOF @ 39 weeks w/ SROM on 10/16/20 in at approx 2350. Started with contractions. complicated by GDM A1. Assessment & Plan Assessment/Plan (1) 39 weeks gestation of : PLAN: EFW is approx 4500 gm clinically, pelvis cliniclly adequate to expect vaginal delivery. Pitocin augmentation as needed. Epidural/nitrous oxide/IV meds prn pain control. Check blood sugars (2) Spontaneous onset of labor: (3) Gestational diabetes, diet controlled:
--- NOTE | 2020-10-17 03:16 | PCM.HP.OB ---
HPI - General General Date of Admission: 10/16/20 HPI Narrative KATHYA ROWE, is a 35 F @ 39 weeks who presents c/o SrOM on 10/16 at 2350 and contractions. complicated tod date by suspected macrosomia and GDM A1. Maternal Data Information Final KENNY: 10/24/20 Final KENNY Source: LMP Gestational age: 39 PFSH PFSH Medical History (Updated 10/17/20 @ 03:[address] Lila Barnes MD) Anxiety Depression Fatigue Gestational diabetes macrosomia Polyhydramnios Home Medications lactobacillus combination no.4 1 ea PO DAILY 11/13/17 [History Last Taken 10/15/20 21:00] sennosides-docusate sodium 1 - 2 tab PO DAILY PRN PRN tab 09/13/18 [Rx Last Taken 10/16/20 21:00] [id number] fumarate-FA [] 1 tab PO DAILY 10/16/20 [History Last Taken 10/16/20 21:00] aspirin [Baby Aspirin] 81 mg PO DAILY 10/16/20 [History Last Taken 10/16/20 21:00] Allergy/AdvReac Type Severity Reaction Status Date / Time No Known Allergies Allergy Verified 10/16/20 23:53 Family History Other Arthritis Heart disease Hypertension Skin cancer Surgical History (Updated 10/17/20 @ 00:24 by Marianela Scott) History of surgery Social History Smoking Status: Never smoker alcohol intake: never substance use type: does not use what type of physical activity do you participate in: walking, bicycling and aerobics frequency: 3-4 times per week History Elective abortions Hx Para 2 Spontaneous abortions Hx # Term Pregnancies Ectopic pregnancies Hx # Pregnancies Multiple births # of living children ROS Constitutional Constitutional: Denies fatigue, fever(s) or malaise Eyes Eyes: Denies change in vision ENT HEENT: Denies dizziness or headache(s) Cardiovascular Cardiovascular: Denies chest pain, dyspnea or lightheadedness Respiratory/Chest Respiratory/Chest: Denies cough or dyspnea Gastrointestinal Gastrointestinal: Denies change in bowel habits Genitourinary Genitourinary: Denies burning urination or genital lesions Integumentary Integumentary: Denies rash Neurologic Neurologic: Denies confusion, dizziness, headache(s), numbness or weakness Vital Signs Vital Signs Vital Signs: 10/16/20 23:59 10/17/20 00:46 10/17/20 00:47 Temperature 98.6 F 98.7 F Temperature Source Temporal Temporal Pulse Rate 84 85 Blood Pressure 132/74 H 129/68 H BP Systolic 132 129 BP Diastolic 74 68 Pulse Ox 97 96 96 10/17/20 01:46 10/17/20 01:47 10/17/20 03:02 Temperature 97.0 F L Temperature Source Temporal Pulse Rate 89 88 93 Blood Pressure 125/65 H 108/55 L BP Systolic 125 108 BP Diastolic 65 55 Pulse Ox 96 Weight Weight: 78.7 kg Body Mass Index (BMI) 28.8 Physical Exam Const alert and no apparent distress General Appearance: cooperative HEENT normocephalic Resp normal respiratory effort Cardio regular rate GI soft to palpation GI Narrative: gravid, nontender, appropriate for gestational age Extremity no calf tenderness General Extremity: edema Skin no wounds Rashes: No rashes noted Psych activity/motor behavior normal Labs Labs Labs: Blood Type A POSITIVE Antibody Screen NEGATIVE Hct 35.9 % (37-47) L Hgb 12.3 g/dL (12.0-15.0) VZV IgG Antibody 2747 index (Immune >165) Rubella IgG Antibody 58.7 IU/mL Hep Bs Antigen Negative (Negative) HIV 1&2 Antibody Non-Reactive (Nonreactive) Rhogam given: No Miscellaneous Test Assessment & Plan (1) Gestational diabetes, diet controlled: PLAN: EFW is approx 4500 gm clinically, pelvis clinically adquete to expect vaginal delivery. Declines primary c/s. Pitocin augmentation as needed. Nitrous oxide, IV meds or epidural prn pain control. (2) Spontaneous onset of labor: (3) 39 weeks gestation of :
[2020-10-17 04:11] LABS: Bedside Glucose 139 mg/dL (70-110)
[2020-10-17 04:11] LABS: Bedside Glucose 177 mg/dL (70-110)
[2020-10-17] MEDS: Ibuprofen 600 MG Tablet PO ×2 (05:38→12:08)
[2020-10-17] MEDS: Senna/Docusate Sodium 1 Tablet PO (05:38)
[2020-10-17] MEDS: Acetaminophen 500 MG Tablet 1000 MG PO ×2 (10:32→22:49)
[2020-10-18] VITALS (8 sets, daily range): BP systolic 105–107; BP diastolic 54–58; PULSE 66–73; RESP 16–18; TEMP 36.8–37.1; O2SAT 96–98
[2020-10-18 06:36] LABS: Bedside Glucose 81 mg/dL (70-110)
[2020-10-18] MEDS: Senna/Docusate Sodium 1 Tablet PO (09:19)
[2020-10-18] MEDS: Acetaminophen 500 MG Tablet 1000 MG PO (09:19)
--- NOTE | 2020-10-18 10:28 | PCM.PN.OB ---
Subjective Subjective pain well controlled, average lochia. Objective Data Objective Data Vital Signs: Vital Signs Temp Pulse Resp BP Pulse Ox 98.8 F 72 18 107/56 L 96 10/18/20 08:55 10/18/20 08:55 10/18/20 08:55 10/18/20 08:55 10/18/20 05:42 Oxygen Delivery Method Room Air Weight: 78.7 kg Body Mass Index (BMI) 28.8 Intake & Output: Intake and Output for Last 24 Hours 10/16/20 10/17/20 10/18/20 23:59 23:59 23:59 Intake Total 740 / 740 Output Total 700 / 700 Balance 40 / 40 Lab / Micro Data Result Diagrams: 10/17/20 00:35 Labs: Laboratory Results - last 24 hr 10/18/20 06:28 POC Glucose 81 Physical Exam Const alert and no apparent distress Narrative: Fundus firm, below umbilicus. Assessment & Plan (1) Normal vaginal delivery: PLAN: day #1. is breast-feeding and doing well. Patient is doing well. Desires discharge home later today. Routine instructions and prescriptions.
--- NOTE | 2020-10-18 10:32 | PCM.DC.SUM ---
Providers Date of Admission: 10/16/20 Primary Care Physician: Dr. Jermain Nobles MD Reason For Visit: LABOR/DEL Diagnosis Discharge Diagnosis (1) Normal vaginal delivery: Status: Acute Code(s): O80 - Encounter for full-term uncomplicated delivery Medications at Discharge Home Medications lactobacillus combination no.4 1 ea PO DAILY 11/13/17 sennosides-docusate sodium 1 - 2 tab PO DAILY PRN PRN tab 09/13/18 1 tab PO DAILY 10/16/20 Hospital Course Summary of Care Provided Hospital Course: Patient was admitted on 10/17/2020 for active labor. She delivered on 10/17/2020 without difficulty. Her course was unremarkable and on day #1 she desired discharge home. was breast-feeding and doing well. Weight / BMI Weight Weight: 78.7 kg Body Mass Index (BMI) 28.8 ABG / Lab / Microbiology Data Result Diagrams: 10/17/20 00:35 Laboratory: Laboratory Results - last 24 hr 10/18/20 06:28 POC Glucose 81 D/C Instructions Discharge Diet: No restrictions May resume sexual activity in: 6 weeks Call your doctor if your incision/area has: Continuous Slow Oozing, Sudden Increased Bleeding, Foul Smelling Discharge and Swelling at the incision site Call your doctor if you observe: Fever of 101 or Higher and Inability to urinate Please Follow Up With: Lila Barnes MD When: Follow up with our office in 1-2 and 6 weeks or as needed. [phone] Meaningful Use Info Meaningful Use Diagnoses (Choose all that apply): None applicable Discharge Plan Admission Admit Date/Time: 10/16/20 23:40 Primary Reason for Your Visit: Vaginal delivery Attending Provider: iLla Barnes Primary Care Provider: Jermain Nobles Instructions Patient Instructions: After a Vaginal Discharge Orders/Prescriptions Prescriptions: Continued lactobacillus combination no.4 1 EACH capsule 1 ea PO DAILY RF: 0 sennosides-docusate sodium 1 TABLET tablet 1 - 2 tab PO DAILY PRN PRN (Reason: Constipation ) RF: 0 28-800 mg-mcg Tablet 1 tab PO DAILY RF: 0 Discontinued aspirin [Baby Aspirin] 81 mg Tablet,Chewable 81 mg PO DAILY RF: 0 Referrals / Follow Up: Jermain Nobles MD [Primary Care Provider] - Disposition Disposition (needs filled in before D/C Order can be placed): Home, self care
== END 2020-10-18 14:00 | disposition home or self-care (01) | DRG 807 ==
PROVIDERS: Admitting Provider Obstetrics & Gynecology; PCP Family Medicine; Visit Provider Obstetrics & Gynecology
DX: O24.424 Gestational diabetes mellitus in childbirth, insulin controlled (principal); O69.81X0 Labor and delivery complicated by cord around neck, without compression, not applicable or unspecified; Z79.82 Long term (current) use of aspirin; Z3A.39 39 weeks gestation of pregnancy; Z37.0 Single live birth
CPT/HCPCS: 59025; 59050; 82962; 85025; 86850; 86900; 86901; 99218; A4216; G0378

== ENCOUNTER → 2020-12-04 07:12 | Outpatient (CLI) | payer OTHER, SELFPAY ==
[2020-11-05 10:49] VITALS: BMI 28.8
[2020-12-04 10:46] LABS: Glucose 2 Hour Postprandial 120 mg/dL (<140)
== END ==
PROVIDERS: PCP Family Medicine; Referring Provider Advanced Practice Midwife; Visit Provider Advanced Practice Midwife
DX: Z86.32 Personal history of gestational diabetes (principal)
CPT/HCPCS: 36415; 82950

== ENCOUNTER → 2021-02-08 | Outpatient (CLI) | payer BC, SELFPAY | END | disposition home or self-care (01) | PROVIDERS: PCP Family Medicine; Referring Provider Family Medicine; Visit Provider Family Medicine | DX: Z03.818 Encounter for observation for suspected exposure to other biological agents ruled out (principal) | CPT/HCPCS: 87635; U0005; U0003 ==

== ENCOUNTER → 2021-12-31 | Outpatient (CLI) | payer BC, SELFPAY ==
[2021-12-31 10:22] LABS: Hematocrit 38.8 % (37-47); Hemoglobin 13.1 g/dL (12.0-15.0); Mean Corp Hgb Conc 33.8 g/dL (32-36); Mean Corpuscular Hgb 32.8 pg (27.0-32.0); Mean Corpuscular Volume 97.2 fL (81-99); Mean Platelet Vol. 10.1 fl (6.2-12.0); Platelet Count 260 K/mm3 (150-450); RBC Distribution Width SD 43.3 fl (35.1-43.9); Red Blood Count 3.99 M/mm3 (4.2-5.4); White Blood Count 6.2 K/mm3 (4.4-11.0)
[2021-12-31 10:46] LABS: Vitamin D,25 Hydroxy 37.6 ng/mL
[2021-12-31 10:49] LABS: ALB/GLOB Ratio 1.2 RATIO (0.9-2.4); AST(SGOT) 18 U/L (15-37); Alanine Aminotransfer ALT/SGPT 19 U/L (13-56); Albumin, Serum 4.2 g/dL (3.2-5.0); Alkaline Phosphatase 88 U/L (45-117); Anion Gap 6 (5-15); BUN 12 mg/dL (7-18); BUN/Creat Ratio 17.6 RATIO (10-20); Calcium,Total 8.8 mg/dL (8.5-10.1); Chloride 107 mmol/L (98-107); Cholesterol 136 mg/dL (200); Creatinine, Serum 0.68 mg/dL (0.55-1.02); EST Glomerular Filtration Rate 105 mL/min (>60); Est Glom Filt Rate - Afr Amer 127 mL/min (>60); Globulin 3.5 g/dL (2.2-4.2); Glucose 93 mg/dL (74-106); High Density Lipoprotein 63 mg/dL; Potassium 3.8 mmol/L (3.5-5.1); Protein, Total 7.7 g/dL (6.4-8.2); Sodium Level 139 mmol/L (136-145); Thyroid Stim Hormone (TSH) 1.52 uIU/mL (0.358-3.74); Triglycerides 51 mg/dL; Very Low Density Lipoprotein 10 mg/dL (5-40)
== END | disposition home or self-care (01) ==
LOC: MFPLAB 09:01
PROVIDERS: Nurse Practitioner Family; PCP Family Medicine; Referring Provider Family Medicine; Visit Provider Family Medicine
DX: Z00.00 Encounter for general adult medical examination without abnormal findings (principal); E55.9 Vitamin D deficiency, unspecified
CPT/HCPCS: 36415; 80053; 80061; 82306; 84443; 85027

== ENCOUNTER 2023-02-15 09:10 | Inpatient (IN) | payer BC, SELFPAY ==
[2023-02-15] VITALS (61 sets, daily range): BP systolic 91–148; BP diastolic 43–70; PULSE 68–109; TEMP 36.6–37.4; O2SAT 86–99; BMI 29.3
[2023-02-15] MEDS: Lactated Ringers 1,000 ML 50 ML IV (09:55)
[2023-02-15 10:13] LABS: Bedside Glucose 99 mg/dL (74-106)
[2023-02-15 10:14] LABS: Absolute Lymphocyte Count 1.21 X10^3/uL (0.83-4.51); Absolute Neutrophil Count 7.2 X10^3/uL (2.0-7.7); Basophil# 0.03 X10^3/uL; Basophil% 0.3 % (0-1); Eosinophil# 0.04 X10^3/uL; Eosinophils% 0.4 % (0-5); Hemoglobin 11.8 g/dL (12.0-15.0); Lymphocyte # 1.21 X10^3/ul (0.83-4.51); Lymphocyte % 13.3 % (19-41); Mean Corp Hgb Conc 33.7 g/dL (32-36); Mean Corpuscular Hgb 33.8 pg (27.0-32.0); Mean Corpuscular Volume 100.3 fL (81-99); Monocyte# 0.51 X10^3/uL; Monocyte% 5.6 % (0-10); NRBC Flagged by Analyzer 0 % (0-5); Neutrophil # 7.24 X10^3/uL (2.7-7.7); Neutrophil % 79.3 % (47-70); Platelet Count 199 K/mm3 (150-450); RBC Distribution Width CV 13.2 % (11.6-14.6); RBC Distribution Width SD 48.6 fl (35.1-43.9); Red Blood Count 3.49 M/mm3 (4.2-5.4); White Blood Count 9.1 K/mm3 (4.4-11.0)
[2023-02-15] MEDS: Oxytocin 15 Units/NS 250ml 15 UNITS/250 ML IV.SOLN 2 UNITS IV (10:18)
[2023-02-15 10:45] LABS: Syphilis Antibodies Non-reactive
[2023-02-15 11:54] LABS: Bedside Glucose 78 mg/dL (74-106)
[2023-02-15] MEDS: 0.9% Normal Saline Single 100 ML IV.SOLN. INTRA-UTER (12:19)
--- NOTE | 2023-02-15 13:01 | PCM.HP.OB ---
HPI - General General Date of Admission: 02/15/23 HPI Narrative KATHYA ROWE, is a 37 F @ 39 weeks who presents for IOL due to GMDA2, AMA, LGA PFSH PFSH Medical History (Updated 02/15/23 @ 13:[address] Ana Cristina Brenner MD) Anxiety Depression Fatigue Gestational diabetes macrosomia Home Medications lactobacillus combination no.4 3 billion cell capsule 1 ea PO DAILY Check with primary doctor 11/13/17 [History Last Taken 10/15/20 21:00] sennosides 8.6 mg-docusate sodium 50 mg tablet 1 - 2 tab PO DAILY PRN PRN Constipation 09/13/18 [Rx Last Taken 10/16/20 21:00] vit no.133-ferrous fumarate 28 mg-folic acid 800 mcg tablet () 1 tab PO DAILY 10/16/20 [History Last Taken 10/16/20 21:00] Allergy/AdvReac Type Severity Reaction Status Date / Time No Known Allergies Allergy Verified 12/26/22 11:13 Family History Other Arthritis Heart disease Hypertension Skin cancer Surgical History History of surgery Social History Smoking Status: Never smoker alcohol intake: never substance use type: does not use what type of physical activity do you participate in: walking, bicycling and aerobics frequency: 3-4 times per week History Elective abortions Hx Para 3 Spontaneous abortions Hx # Term Pregnancies Ectopic pregnancies Hx # Pregnancies Multiple births # of living children Vital Signs Vital Signs Vital Signs: 02/15/23 09:43 02/15/23 09:43 02/15/23 09:45 Temperature Temperature Source Pulse Rate 90 89 Blood Pressure 118/61 BP Systolic 118 BP Diastolic 61 Pulse Ox 02/15/23 09:45 02/15/23 09:50 02/15/23 09:50 Temperature Temperature Source Pulse Rate 85 Blood Pressure BP Systolic BP Diastolic Pulse Ox 98 97 02/15/23 09:55 02/15/23 09:55 02/15/23 10:00 Temperature Temperature Source Pulse Rate 92 90 Blood Pressure BP Systolic BP Diastolic Pulse Ox 98 02/15/23 10:00 02/15/23 10:05 02/15/23 10:05 Temperature Temperature Source Pulse Rate 93 Blood Pressure BP Systolic BP Diastolic Pulse Ox 96 96 02/15/23 10:22 02/15/23 10:22 02/15/23 10:59 Temperature Temperature Source Pulse Rate 94 Blood Pressure 116/65 120/62 BP Systolic 116 120 BP Diastolic 65 62 Pulse Ox 02/15/23 10:59 02/15/23 09:54 02/15/23 09:54 Temperature 98.7 F Temperature Source Temporal Pulse Rate 88 Blood Pressure BP Systolic BP Diastolic Pulse Ox 02/15/23 11:31 02/15/23 11:31 02/15/23 12:01 Temperature Temperature Source Pulse Rate 109 H Blood Pressure 148/63 H 117/58 L BP Systolic 148 117 BP Diastolic 63 58 Pulse Ox 02/15/23 12:01 Temperature Temperature Source Pulse Rate 82 Blood Pressure BP Systolic BP Diastolic Pulse Ox Weight Weight: 80.1 kg Body Mass Index (BMI) 29.3 Labs Labs Labs: Blood Type A POSITIVE Antibody Screen NEGATIVE Hct 35.0 % (37-47) L Hgb 11.8 g/dL (12.0-15.0) L Syphilis Total Ab Non-reactive VZV IgG Antibody 2747 index (Immune >165) Rubella IgG Antibody 58.7 IU/mL Hep Bs Antigen Negative (Negative) HIV 1&2 Antibody Non-Reactive (Nonreactive) Rhogam given: No Miscellaneous Test Assessment & Plan (1) Gestational diabetes requiring insulin: (2) AMA (advanced maternal age) multigravida 35+: (3) 39 weeks gestation of : PLAN: Plan Admit to L&D Mont[facility] FHR/TOCO Epidural if requested for pain Monitor VS Anticipate Pitocin/foely
[2023-02-15] MEDS: LACTATED RINGERS 500 ML 999 ML IV (13:30)
[2023-02-15] MEDS: fentaNYL-bupivacaine (epidural) 100 ML BAG EPIDURAL ×2 (14:30→18:23)
[2023-02-15 16:16] LABS: Bedside Glucose 71 mg/dL (74-106)
[2023-02-15] MEDS: Lactated Ringers 1,000 ML 200 ML IV (16:59)
[2023-02-15 19:01] LABS: Bedside Glucose 60 mg/dL (74-106)
[2023-02-15 20:19] LABS: Bedside Glucose 73 mg/dL (74-106)
[2023-02-15 21:25] LABS: Bedside Glucose 83 mg/dL (74-106)
[2023-02-15] MEDS: Oxytocin 15 Units/NS 250ml 15 UNITS/250 ML IV.SOLN 83 UNITS IV (22:03)
[2023-02-15] MEDS: Oxytocin 10 UNITS/ML Vial IM (22:04)
--- NOTE | 2023-02-15 22:18 | EX.PCM.OBRPT ---
Assessment & Plan (1) (spontaneous vaginal delivery): (2) AMA (advanced maternal age) multigravida 35+: (3) Gestational diabetes requiring insulin: (4) Normal vaginal delivery: (5) macrosomia: Vaginal Delivery Maternal Presentation Maternal Presentation: Medically Indicated Induction Maternal Presentation: Induction of labor for AMA, GDM A2 and LGA Type of Induction: Pitocin, Jackson Bulb and Amniotomy Medical Reason for Induction: Maternal Medical Condition: list: (GDM A2, AMA) Operative Information Date of Procedure: 02/15/23 Pre-Operative Diagnosis: Term gestation, induction of labor Post-Operative Diagnosis: , live male infant Surgery / Procedure Performed: Spontaneous Vaginal Delivery Type of Anesthesia: Epidural Drain: Jackson to straight drain Estimated Blood Loss: 150 Time of Delivery: 21:58 Findings Description of Procedure: Patient quickly progressed to complete dilation and +2 station. With minimal maternal effort, head delivered over intact perineum followed by anterior shoulder and remainder of body without traction. Vigorous male placed on maternal abdomen and was attended to by nursing staff. Pitocin IV started for active management of the third stage of labor. 3 vessel cord clamped and cut after 3 minute delay by support person. Infant placed immediately skin to skin with patient. Placenta delivered spontaneously and intact. Small first degree vaginal laceration repaired in usual fashion using 3- 0 Vicryl rapid. Hemostasis obtained. EBL 150 cc. APGARS 8/9. Patient and bonding well at this time. Dr. Rae notified of delivery. Presentation: Vertex and ARLEY Amniotic Membrane Rupture Type: Artificial Time of Membrane Rupture: 1750 Amniotic Fluid Description: Clear Placental Delivery Description: Spontaneous Placenta Disposition: [facility] Cord Vessel Description: 3 Vessels Cord Entanglement: None Infant A Gender: Male (1 minute): 8 (5 minute): 9 Delayed Cord Clamping: Yes Post Vaginal Delivery Medications Given After Delivery: IV Pitocin and IM Pitocin Episiotomy Description: None Laceration: 1st degree Complication Complications: None
[2023-02-15 23:33] LABS: Bedside Glucose 90 mg/dL (74-106)
[2023-02-16] VITALS (9 sets, daily range): BP systolic 103–111; BP diastolic 42–63; PULSE 74–95; RESP 16–17; TEMP 36.3–37.3; O2SAT 97–99
[2023-02-16] MEDS: 0.9% Saline Lock 10 ML Syringe IV (01:28)
[2023-02-16] MEDS: Naproxen 500 MG Tablet PO ×2 (07:01→16:45)
[2023-02-16] MEDS: Senna/Docusate Sodium 1 Tablet PO ×2 (07:01→16:45)
[2023-02-16 07:30] LABS: Bedside Glucose 99 mg/dL (74-106)
--- NOTE | 2023-02-16 09:37 | PN.OBGYN_ITS ---
Subjective Subjective pain well controlled, average lochia Objective Data Objective Data Vital Signs: Vital Signs Temp Pulse Resp BP Pulse Ox O2 Del Method 97.4 F L 76 17 111/63 99 Room Air 02/16/23 08:42 02/16/23 08:42 02/16/23 08:42 02/16/23 08:42 02/16/23 05:00 02/16/23 08:42 Oxygen Delivery Method Room Air Weight: 80.1 kg Body Mass Index (BMI) 29.3 Intake & Output: Intake and Output for Last 24 Hours 02/14/23 02/15/23 02/16/23 23:59 23:59 23:59 Intake Total 2502.96 / 2502.96 250 / 250 Output Total 1250 / 1250 2200 / 2200 Balance 1252.96 / 1252.96 -1950 / -1950 Lab / Micro Data 02/15/23 09:55 Labs: Laboratory Results - last 24 hr 02/15/23 09:54: POC Glucose 99 02/15/23 09:55: WBC 9.1, RBC 3.49 L, Hgb 11.8 L, Hct 35.0 L, MCV 100.3 H, MCH 3 3.8 H, MCHC 33.7, RDW Std Deviation 48.6 H, RDW Coeff of Luisa 13.2, Plt Count 199, MPV 10.0, Immature Gran % (Auto) 1.100 H, Neut % (Auto) 79.3 H, Lymph % (Auto) 13.3 L, Jessamine % (Auto) 5.6, Eos % (Auto) 0.4, Baso % (Auto) 0.3, Absolute Neuts (auto) 7.2, Absolute Lymphs (auto) 1.21, Nucleated RBC % 0, Syphilis Total Ab Non-reactive, Blood Type A POSITIVE, Antibody Screen NEGATIVE 02/15/23 11:27: POC Glucose 78 02/15/23 15:58: POC Glucose 71 L 02/15/23 18:37: POC Glucose 60 L 02/15/23 19:54: POC Glucose 73 L 02/15/23 20:58: POC Glucose 83 02/15/23 23:07: POC Glucose 90 02/16/23 06:57: POC Glucose 99 Physical Exam Const alert and no apparent distress Narrative: Fundus firm, below umbilicus. Assessment & Plan (1) (spontaneous vaginal delivery): PLAN: PPD#1 s/p . Patient is doing well 2. Routine care. Likely home tomorrow. is breast-feeding and doing well.
[2023-02-16] MEDS: Acetaminophen 500 MG Tablet 1000 MG PO (12:08)
[2023-02-17] MEDS: Naproxen 500 MG Tablet PO (01:14)
[2023-02-17 01:16] VITALS: BP 111/66; PULSE 77; RESP 16; TEMP 36.3; O2SAT 97
--- NOTE | 2023-02-17 09:59 | CASEMGMT ---
Labor and Delivery Social Work 02/16/23 Sw received social work consult due to maternal depression and anxiety. Sw completed chart review and presented to bedside to meet with parents and complete psychosocial assessment. - Upon entering room sw could sense that parents felt stressed or worried about something. - Sw introduced self and explained reason for sw involvement. - MOB stated that it was ok to complete assessment, however she was working on baby. MOB stated that baby is not latching and she does not know why. - Sw asked several assessment questions- baby's name, how long parents have been together, other siblings, etc. But sw could tell that MOB was becoming more and more concerned regarding baby. - Sw asked MOB if she would like sw to get to come in and work with her while she is trying to feed, and MOB said yes. - Sw found configuration management consultant, Teresa and informed her of above. - Teresa then met with MOB and baby at bedside and discovered baby to be tachypneic. - Sw to meet with parents at later time to provide support and assess for any needs or concerns at this time. 02/17/23 Sw completed chart review and notes that MOB was discharged from labor and delivery unit as a result of baby needing to be transferred to [facility] NICU for concerns regarding respiratory distress. - Sw contacted NICU social media designer, Emilie Rios and informed her of above information and that there was a social work consult at [facility] due to maternal history of depression and anxiety. Ms. Rios stated that she would follow up with parents to assess for needs and provide linkage to appropriate resources when applicable. - No other needs or concerns at this time. Jamal Max, COIL REPAIR TECHNICIAN, DRUM STOCK CLERK
== END 2023-02-17 02:00 | disposition home or self-care (01) | DRG 807 ==
PROVIDERS: Obstetrics & Gynecology; Admitting Provider Advanced Practice Midwife; PCP Family Medicine; Visit Provider Advanced Practice Midwife
DX: O24.424 Gestational diabetes mellitus in childbirth, insulin controlled (principal); Z37.0 Single live birth; O70.0 First degree perineal laceration during delivery; Z3A.39 39 weeks gestation of pregnancy
CPT/HCPCS: 59025; 59050; 82962; 85025; 86780; 86850; 86900; 86901; 99221; J7120; A4216; G0378

== ENCOUNTER → 2023-05-26 | Outpatient (CLI) | payer BC, SELFPAY ==
--- OUTSIDE RECORDS SUMMARY | 2023-05-26 16:04 | XMS RPT_ITS | CCD ---
Author Name Unknown Address [id number] [place] [address] Organization [facility] Care Team Providers Care Inspector Final Assembly Electrical Name Role Phone Roberto MCCARTY, Del Elise Primary Care Provider [phone] Del Hernandez MD Primary Care Provider DEL HERNANDEZ Primary Care Unavailable ABELARDO OCAMPO Attending Unavailable SOLIS, DEL K Primary Care Unavailable SOLIS, DEL K Primary Care Unavailable ABELARDO OCAMPO Attending Unavailable ABELARDO OCAMPO Referring Unavailable SOLIS, DEL K Primary Care Unavailable ABELARDO OCAMPO Attending Unavailable SOLIS, DEL K Primary Care Unavailable ABELARDO OCAMPO Referring Unavailable SOLIS, DEL K Primary Care Unavailable SUZE BUTT Attending Unavailable SOLIS, DEL K Primary Care Unavailable MARIAM COYLE Attending Unavailable SOLIS, DEL K Primary Care Unavailable ABELARDO OCAMPO Referring Unavailable SOLIS, DEL K Primary Care Unavailable MARIAM COYLE Attending Unavailable SOLIS, DEL K Primary Care Unavailable ABELARDO OCAMPO Referring Unavailable ABELARDO OCAMPO Referring Unavailable SCHINNER, DEL E Primary Care Unavailable SOLIS, DEL K Primary Care Unavailable MARIAM COYLE Referring Unavailable ABELARDO OCAMPO Referring Unavailable SOLIS, DEL K Primary Care Unavailable ABELARDO OCAMPO Attending Unavailable SOLIS, DEL K Primary Care Unavailable ABELARDO OCAMPO Attending Unavailable ABELARDO OCAMPO Referring Unavailable SOLIS, DEL K Primary Care Unavailable ONELIA ARIAS Attending Unavailable ARJUN MCKENNA Referring Unavailable SOLIS, DEL K Primary Care Unavailable ABELARDO OCAMPO Attending Unavailable SOLIS, DEL K Primary Care Unavailable ZION EPSTEIN Attending Unavailable SOLIS, DEL K Primary Care Unavailable MARIAM COYLE Attending Unavailable SOLIS, DEL K Primary Care Unavailable PAULA CONTRERAS Referring Unavail able SOLIS, DEL K Primary Care Unavailable PAULA CONTRERAS Attending Unavail able SOLIS, DEL K Primary Care Unavailable ABELARDO OCAMPO Referring Unavailable SOLIS, DEL K Primary Care Unavailable PAULA CONTRERAS Attending Unavail able ABELARDO OCAMPO Referring Unavailable DEL SOLIS Primary Care Unavailable Medications Completed/Discontinued Medications Medication Drug Class(es) Dates Sig (Normalized) Sig (Original) Acetaminophen (20 sources) acetaminophen (T YLENOL ORAL) Take by mouth. 0 Active Problems Active Problems Problem Classification Problem Date Documented Da te Episodic/Chronic Contraceptive and procreative management (2 sources) Patient encounter status; Translations: [Encounter for other general counseling and advice on contraception] Episodic Diabetes or abnormal glucose tolerance complicating ; childbirth; or the puerperium (20 sources) History of gestational diabetes mellitus; Translations: [Personal history of gestational diabetes] Onset: 11-30-2020 11-30-2020 Episodic Residual codes; unclassified (2 sources) Gestation period, 7 weeks; Translations: [Less than 8 weeks gestation of ] Episodic Residual codes; unclassified (1 source) Gestation period, 11 weeks; Translations: [11 weeks gestation of ] Episodic Residual codes; unclassified (1 source) Gestation period, 17 weeks; Translations: [17 weeks gestation of ] Episodic Residual codes; unclassified (1 source) Gestation period, 22 weeks; Translations: [22 weeks gestation of ] Episodic Residual codes; unclassified (1 source) Gestation period, 30 weeks; Translations: [30 weeks gestation of ] 12-19-2022 Episodic Residual codes; unclassified (1 source) Gestation period, 32 weeks; Translations: [32 weeks gestation of ] 01-03-2023 Episodic Residual codes; unclassified (1 source) Gestation period, 35 weeks; Translations: [35 weeks gestation of ] 01-20-2023 Episodic Residual codes; unclassified (1 source) Gestation period, 37 weeks; Translations: [37 weeks gestation of ] 02-06-2023 Episodic Residual codes; unclassified (1 source) Gestation period, 38 weeks; Translations: [38 weeks gestation of ] 02-13-2023 Episodic Unclassified (1 source) Echogenic focus of heart of fetus affecting antepartum care of mother, single or unspecified fetus; Translations: [Echogenic focus of heart of fetus affecting antepartum care of mother, single or unspecified fetus] Onset: 05-25-2023 Unclassified (1 source) Choroid plexus cyst of fetus affecting care of mother, antepartum, single or unspecified fetus; Translations: [Choroid plexus cyst of fetus affecting care of mother, antepartum, single or unspecified fetus] Onset: 09-29-2022 Past or Other Problems Problem Classification Problem Date Documented Da te Episodic/Chronic Diabetes mellitus without complication (12 sources) Increased glucose level; Translations: [Other abnormal glucose] Onset: 07-16-2018 11-30-2022 Episodic Other complications of (20 sources) History of delivery of macrosomal infant; Translations: [Supervision of with other poor reproductive or obstetric history, unspecified trimester] Onset: 07-20-2022 Episodic Other complications of (20 sources) Multigravida of advanced maternal age; Translations: [Supervision of elderly multigravida, first trimester] Onset: 08-17-2022 Episodic Other complications of (1 source) Supervision of elderly multigravida, third trimester; Translations: [Multigravida of advanced maternal age in third trimester] Onset: 02-02-2023 Episodic Other complications of (1 source) Supervision of elderly multigravida, first trimester; Translations: [Advanced maternal age in multigravida, first trimester] Onset: 08-17-2022 Episodic Other complications of (1 source) Supervision of elderly multigravida, second trimester; Translations: [AMA (advanced maternal age) multigravida 35+, second trimester] Onset: 09-29-2022 Episodic Other connective tissue disease (20 sources) Diastasis recti; Translations: [Separation of muscle (nontraumatic), other site] Onset: 11-25-2019 Episodic Other and delivery including normal (20 sources) Normal ; Translations: [Encounter for supervision of other normal , unspecified trimester] Onset: 02-11-2016 07-20-2022 Episodic Other screening for suspected conditions (not mental disorders or infectious disease) (1 source) Encounter for other specified screening; Translations: [Encounter for anatomic survey] Onset: 09-29-2022 Episodic Residual codes; unclassified (20 sources) FH: Congenital heart disease; Translations: [Family history of other congenital malformations, deformations and chromosomal abnormalities] Onset: 02-27-2020 02-27-2020 Episodic Residual codes; unclassified (1 source) 32 weeks gestation of ; Translations: [32 weeks gestation of ] Onset: 02-02-2023 Episodic Residual codes; unclassified (1 source) 22 weeks gestation of ; Translations: [22 weeks gestation of ] Onset: 11-30-2022 Episodic Residual codes; unclassified (1 source) 19 weeks gestation of ; Translations: [19 weeks gestation of ] Onset: 09-29-2022 Episodic Residual codes; unclassified (1 source) Less than 8 weeks gestation of ; Translations: [7 weeks gestation of ] Onset: 08-01-2022 Episodic Screening and history of mental health and substance abuse codes (20 sources) H/O: depression; Translations: [Personal history of other mental and behavioral disorders] Onset: 02-07-2018 02-27-2020 Episodic Results Test Name Value Interpretation Reference Range Facil ity Vital Signs Date Time Vital Sign Value Performing Clinician Kristal johnson 03-31-2023 09:49-0500 Body weight 75.93 kg Abelardo Ocampo APRN.CNM Work Phone: [facility] 03-31-2023 09:49-0500 Diastolic blood pressure 64 mm[Hg] Abelardo Ocampo APRN.CNM Work Phone: [facility] 03-31-2023 09:49-0500 Systolic blood pressure 118 mm[Hg] Abelardo Ocampo APRN.CNGloria Work Phone: [facility] 02-13-2023 08:33-0400 Diastolic blood pressure 66 mm[Hg] Ob Ultrasound Work Phone: [facility] 02-13-2023 08:33-0400 Systolic blood pressure 120 mm[Hg] Ob Ultrasound Work Phone: [facility] 02-06-2023 08:52-0400 Diastolic blood pressure 58 mm[Hg] Ob Ultrasound Work Phone: [facility] 02-06-2023 08:52-0400 Systolic blood pressure 106 mm[Hg] Ob Ultrasound Work Phone: [facility] 01-20-2023 11:32-0400 Body weight 78.93 kg Zion Epstein MD Work Phone: [facility] 01-20-2023 11:32-0400 Diastolic blood pressure 60 mm[Hg] Zion Epstein MD Work Phone: [facility] 01-20-2023 11:32-0400 Systolic blood pressure 114 mm[Hg] Zion Epstein MD Work Phone: [facility] 01-03-2023 13:36-0400 Body weight 80.29 kg Paula Rae MD Work Phone: [facility] 01-03-2023 13:36-0400 Diastolic blood pressure 56 mm[Hg] Paula Rae MD Work Phone: [facility] 01-03-2023 13:36-0400 Systolic blood pressure 108 mm[Hg] Paula Rae MD Work Phone: [facility] 12-19-2022 11:16-0400 Body weight 79.38 kg Mariam Coyle INSTALL AND REPAIR TECHNICIAN.CNM Work Phone: [facility] 12-19-2022 11:16-0400 Diastolic blood pressure 64 mm[Hg] Mariam Plotts INSTALL AND REPAIR TECHNICIAN.CNM Work Phone: [facility] 12-19-2022 11:16-0400 Systolic blood pressure 100 mm[Hg] Mariam Plotts INSTALL AND REPAIR TECHNICIAN.CNM Work Phone: [facility] 10-24-2022 11:17-0400 Body weight 75.75 kg Abelardo Ocampo INSTALL AND REPAIR TECHNICIAN.CNM Work Phone: [facility] 10-24-2022 11:17-0400 Diastolic blood pressure 68 mm[Hg] Abelardo Ocampo INSTALL AND REPAIR TECHNICIAN.CNM Work Phone: [facility] 10-24-2022 11:17-0400 Systolic blood pressure 110 mm[Hg] Abelardo Ocampo INSTALL AND REPAIR TECHNICIAN.CNM Work Phone: [facility] 09-19-2022 13:13-0400 Body weight 74.39 kg Abelardo Ocampo INSTALL AND REPAIR TECHNICIAN.CNM Work Phone: [facility] 09-19-2022 13:13-0400 Diastolic blood pressure 62 mm[Hg] Abelardo Ocampo INSTALL AND REPAIR TECHNICIAN.CNM Work Phone: [facility] 09-19-2022 13:13-0400 Systolic blood pressure 110 mm[Hg] Abelardo Ocampo INSTALL AND REPAIR TECHNICIAN.CNM Work Phone: [facility] 08-17-2022 10:46-0400 Body weight 73.03 kg Abelardo Ocampo INSTALL AND REPAIR TECHNICIAN.CNM Work Phone: [facility] 08-17-2022 10:46-0400 Diastolic blood pressure 68 mm[Hg] Abelardo Ocampo INSTALL AND REPAIR TECHNICIAN.CNM Work Phone: [facility] 08-17-2022 10:46-0400 Systolic blood pressure 110 mm[Hg] Abelardo Ocampo INSTALL AND REPAIR TECHNICIAN.CNM Work Phone: [facility] 07-20-2022 08:46-0400 Body weight 72.39 kg Abelardo Ocampo INSTALL AND REPAIR TECHNICIAN.CNM Work Phone: [facility] 07-20-2022 08:46-0400 Diastolic blood pressure 60 mm[Hg] Abelardo Ocampo INSTALL AND REPAIR TECHNICIAN.CNM Work Phone: [facility] 07-20-2022 08:46-0400 Systolic blood pressure 102 mm[Hg] Abelardo Ocampo INSTALL AND REPAIR TECHNICIAN.CNM Work Phone: [facility] 03-28-2022 13:25-0500 Body height 165.1 cm Abelardo Ocampo INSTALL AND REPAIR TECHNICIAN.CNM Work Phone: [facility] 03-28-2022 13:25-0500 Body weight 72.76 kg Abelardo Ocampo INSTALL AND REPAIR TECHNICIAN.CNM Work Phone: [facility] 03-28-2022 13:25-0500 Diastolic blood pressure 62 mm[Hg] Abelardo Ocampo INSTALL AND REPAIR TECHNICIAN.CNM Work Phone: [facility] 03-28-2022 13:25-0500 Systolic blood pressure 104 mm[Hg] Abelardo Ocampo INSTALL AND REPAIR TECHNICIAN.CNM Work Phone: [facility] Encounters Encounter Date Encounter Type Care Provider Facility Start: 05-04-2023 End: 05-05-2023 ambulatory ABELARDO OCAMPO Facility:[facility] Start: 03-31-2023 End: 03-31-2023 ambulatory DEL HERNANDEZ Facility:[facility] Start: 03-31-2023 End: 03-31-2023 Patient encounter procedure Abelardo Ocampo APRN.CNM Work Phone: OB/Gynecology Procedures Date Procedure Procedure Detail Performing Clinician Start: 02-13-2023 biophysical pr ofile non-stress testing Mariam Coyle INSTALL AND REPAIR TECHNICIAN.CNM Work Phone: Start: 02-06-2023 biophysical pr ofile non-stress testing Mariam Coyle INSTALL AND REPAIR TECHNICIAN.CNM Work Phone: Start: 01-20-2023 URINE OB DIP B/O Sonya Epstein MD Work Phone: Start: 01-03-2023 URINE OB DIP B/O Paula Rae MD Work Phone: Start: 12-19-2022 URINE OB DIP B/O Va Coyle INSTALL AND REPAIR TECHNICIAN.CNM Work Phone: Start: 10-24-2022 URINE OB DIP B/O Basil Ocampo APRN.CNM Work Phone: Start: 09-19-2022 URINE OB DIP B/O Basil Ocampo INSTALL AND REPAIR TECHNICIAN.CNM Work Phone: Start: 08-01-2022 Us preg uterus after 1st trimest 05/08 gestation Abelardo Ocampo APRN.CNM Work Phone: Start: 07-21-2022 Antibody screen DEL ADAMES Plan of Treatment Date Care Activity Detail Author Start: 11-30-2032 Urine microalbumin profile [facility] Start: 08-04-2030 Urine microalbumin profile DTAP,TDAP,TD (4 - Td or Tdap) [facility] Start: 07-21-2027 HPV TESTING HPV TESTING [facility] Start: 07-21-2027 PAP TESTING PAP TESTING [facility] Start: 03-31-2023 End: 06-30-2023 GLUC SENA, 2-HR NON-GEST, 75 GM, FASTING GLUC SENA, 2-HR NON-GEST, 75 GM, FASTING Lab Routine History of gestational diabetes Expected: 03/31/2023, Expires: 06/30/2023 [facility] Work Phone: Immunizations Immunization Date Immunization Notes Care Provider Akosua huynh 11-30-2022 tetanus toxoid, redu madai diphtheria toxoid, and acellular pertussis vaccine, adsorbed Mariam Plotbetty INSTALL AND REPAIR TECHNICIAN.CNM Work Phone: [facility] 03-23-2022 influenza virus vaccine, unspecified formulation Zion Epstein MD Work Phone: [facility] 08-04-2020 tetanus toxoid, redu madai diphtheria toxoid, and acellular pertussis vaccine, adsorbed Abelardo Ocampo INSTALL AND REPAIR TECHNICIAN.CNM Work Phone: [facility] 08-09-2018 tetanus toxoid, redu madai diphtheria toxoid, and acellular pertussis vaccine, adsorbed Abelardo Ocampo INSTALL AND REPAIR TECHNICIAN.CN Work Phone: [facility] Work Phone: 04-29-2016 tetanus toxoid, redu madai diphtheria toxoid, and acellular pertussis vaccine, adsorbed Abelardo Ocampo INSTALL AND REPAIR TECHNICIAN.CN Work Phone: [facility] Work Phone: Payers Date Payer Category Payer Unknown KATHERINE EDMONDS PPO [id number] 2015-Present [phone] [address] [place] [address] PPO [id number] 2015 Unknown [id number] Social History Date Type Detail Facility Start: 03-28-2022 [facility] Start: 03-28-2022 Tobacco use and exposure Smokeless tobacco non-user [facility] Start: 03-28-2022 End: 03-31-2023 Alcohol intake Ex-drinker (finding) [facility] Start: 02-27-2020 History SDOH Financial 5 [facility] Start: 02-27-2020 History SDOH Food Worry 1 [facility] Start: 02-27-2020 History SDOH Transpo rt Med 2 [facility] Start: 02-27-2020 Education 17 [facility] Start: 12-10-2015 Alcohol Comment Seldom, not wh ile [facility] Start: 1985 Sex Assigned At Not on file [facility] Start: 06-02-2022 [facility] Start: 09-19-2022 End: 10-24-2022 History of Social function [facility] Work Phone: Start: 09-19-2022 End: 10-24-2022 Tobacco use panel [facility] Work Phone: The thought of frani ng myself has occurred to me Never [facility] Work Phone: National Score (1-10 0), lower number is lower risk 52 [facility] Work Phone: (I/We) worried wheth er (my/our) food would run out before (I/we) got money to buy more. Never true [facility] Work Phone: Medical Equipment Procedure Code Equipment Code Equipment Origin al Text Equipment Identifier Dates 1 Each daily at bedtime. Start: 02-02-2023 End: 03-31-2023 Goals Date Patient Goal Desired Activity /State Personal health goal Clinical Notes 10-14-2020 to 03-31-2023 Abelardo Ocampo APRN.CNM - 03/31/2023 9:40 AM Misty Whelan RN - 02/16/2023 8:17 AM EDTTelephone Encounter - Mariam Coyle APRN.CNM - 02/02/2023 3:28 PM EDT Note Date & Type Note Facility 03-31-2023 Note HNO ID: [id number] Author: Abelardo Ocampo APRN.CNM Service: ? Author Type: Co Founder And Director Type: Progress Notes Filed: 03/31/2023 10:25 AM Note Text: VISIT Lori Agarwal is a 37 year old year old here for visit. Delivery Summary: Date: 02/15/2023 Time: 9:58 Sex: M Name: Jared Weight: 8# 8oz Outcome: Anesthesia: Epidural Delivered by: CP Perineal repair: 1st degree lac. ROS/ Recovery: Feeding: Breast feeding problems: None Menses since delivery: None Menstrual pattern prior to : Regular periods [place] since delivery: Not resumed Depression: denies, admits to symptoms of depression. OB Depression and Anxiety Screening- This Encounter (since 03/30/2023) Over the past 2 weeks have you felt down, depressed, or hopeless? Positive - Further Testing Indicated Over the past two weeks, have you felt little interest or pleasure in doing things?? Positive - Further Testing Indicated I have been able to laugh and see the funny side of things. As much as I always could I have looked forward with enjoyment to things. Rather less than I used to I have blamed myself unnecessarily when things went wrong. No, never I have been anxious or worried for no good reason. Hardly ever I have felt scared or panicky for no good reason. No, not at all Things have been getting on top of me. Yes, sometimes I haven't been coping as well as usual I have been so unhappy that I have had difficulty sleeping. Not at all I have felt sad or miserable. Not very often I have been so unhappy that I have been crying. Yes, quite often The thought of harming myself has occurred to me. Never [place] Depression Scale Total 7 Feeling nervous, anxious or on edge 0-Not at all Not being able to stop or control worrying 0-Not al all Anxiety Pre-Screening Total (If >/= 3 additional questions will be reviewed) 0 Emotional support: Yes Bowel symptoms: Negative for abdominal discomfort, blood in stools or black stools Abdomen: N/A Bladder symptoms: No dysuria, gross hematuria, urinary frequency, urinary urgency, or incontinence Other issues: None Last Pap: 2022 normal HPV: negative PAST MEDICAL HISTORY Diagnosis Date anxiety/depression Dysmenorrhea fracture arm basketball accident History of gestational diabetes 07/19/2018 PAST SURGICAL HISTORY Procedure Laterality Date EXTRACTION, ERUPTED TOOTH OR EXPOSED ROOT (ELEVATION AND/OR FORCEPS REMOVAL) 12/2007 REMOVE TONSIL AND ADENOI UNDER AGE 12 1995 FAMILY HISTORY Problem Relation Age of Onset Arthritis Father Heart Father Murmur Cancer Father Arthritis Mother Maternal Grandparents-psoriatic and rhuematoid Hypertension Mother other (kidney stones) Mother Hypertension Brother other (kidney stones) Sister other (gestational diabetes) Sister Cancer Maternal Grandfather Melanoma Hypertension Maternal Grandfather Heart Maternal Grandfather [place] Ischemic Heart Disease Maternal Grandmother Cancer Paternal Grandfather other (Penicillin allergy) Daughter No Known Problems Daughter Social History Tobacco Use Smoking status: Never Smokeless tobacco: Never Vaping Use Vaping Use: Never used Substance Use Topics Alcohol use: Not Currently Comment: Seldom, not while Drug use: No PHYSICAL EXAMINATION: LMP 05/30/2022 BP 118/64 Wt 167 lb 6.4 oz (75.9 kg) LMP 05/30/2022 (Approximate) Yes BMI 27.86 kg/m? GENERAL: pleasant, female in no apparent distress HEENT: Normocephalic, atraumatic, mucus membranes moist, and no lesions NECK: Supple, full range of motion, no adenopathy, and thyroid normal DERMATOLOGY: Normal, without lesions, non-icteric, and non-hirsute BREAST: soft, non-tender, symmetric, no dominant mass, normal nipple-areolar complex, no lymphadenopathy, and no nipple discharge CHEST: Normal inspiratory effort ABDOMEN: soft, non-tender, and no masses. Diastasis Recti 2 finger breadth from above umbilicus to Pubic symphysis PELVIC: external genitalia normal, normal Bartholin's glands, urethra, [place]'s glands, no vulvar lesions, no cervical lesions, good vaginal support, physiologic discharge present, normal appearing perineal body and perianal region BIMANUAL: uterus normal size, shape and consistency, no adnexal masses, and non-tender NEURO: alert and oriented x3,exam grossly non-focal EXTREMITIES: normal ASSESSMENT AND PLAN: 37 year old status post with normal course. Contraception plan: has vasectomy Follow up: GDM: Needs 2 hour GTT, referral to preventative cardiology Referral for pelvic floor physical therapy for DR Abelardo Ocampo APRN.[facility] 03-31-2023 History of Presen t illness Narrative VISIT Lori Agarwal is a 37 year old year old here for visit. Delivery Summary: Date: 02/15/2023 Time: 9:58 Sex: M Name: Jared Weight: 8# 8oz Outcome: Anesthesia: Epidural Delivered by: CP Perineal repair: 1st degree lac. ROS/ Recovery: Feeding: Breast feeding problems: None Menses since delivery: None Menstrual pattern prior to : Regular periods [place] since delivery: Not resumed Depression: denies, admits to symptoms of depression. OB Depression and Anxiety Screening- This Encounter (since 03/30/2023) Over the past 2 weeks have you felt down, depressed, or hopeless? Positive - Further Testing Indicated Over the past two weeks, have you felt little interest or pleasure in doing things? Positive - Further Testing Indicated I have been able to laugh and see the funny side of things. As much as I always could I have looked forward with enjoyment to things. Rather less than I used to I have blamed myself unnecessarily when things went wrong. No, never I have been anxious or worried for no good reason. Hardly ever I have felt scared or panicky for no good reason. No, not at all Things have been getting on top of me. Yes, sometimes I haven't been coping as well as usual I have been so unhappy that I have had difficulty sleeping. Not at all I have felt sad or miserable. Not very often I have been so unhappy that I have been crying. Yes, quite often The thought of harming myself has occurred to me. Never [place] Depression Scale Total 7 Feeling nervous, anxious or on edge 0-Not at all Not being able to stop or control worrying 0-Not al all Anxiety Pre-Screening Total (If >/= 3 additional questions will be reviewed) 0 Emotional support: Yes Bowel symptoms: Negative for abdominal discomfort, blood in stools or black stools Abdomen: N/A Bladder symptoms: No dysuria, gross hematuria, urinary frequency, urinary urgency, or incontinence Other issues: None Last Pap: 2022 normal HPV: negative PAST MEDICAL HISTORY Diagnosis Date anxiety/depression Dysmenorrhea fracture arm basketball accident History of gestational diabetes 07/19/2018 PAST SURGICAL HISTORY Procedure Laterality Date EXTRACTION, ERUPTED TOOTH OR EXPOSED ROOT (ELEVATION AND/OR FORCEPS REMOVAL) 12/2007 REMOVE TONSIL AND ADENOI UNDER AGE 14 1995 FAMILY HISTORY Problem Relation Age of Onset Arthritis Father Heart Father Murmur Cancer Father Arthritis Mother Maternal Grandparents-psoriatic and rhuematoid Hypertension Mother other (kidney stones) Mother Hypertension Brother other (kidney stones) Sister other (gestational diabetes) Sister Cancer Maternal Grandfather Melanoma Hypertension Maternal Grandfather Heart Maternal Grandfather [place] Ischemic Heart Disease Maternal Grandmother Cancer Paternal Grandfather other (Penicillin allergy) Daughter No Known Problems Daughter Social History Tobacco Use Smoking status: Never Smokeless tobacco: Never Vaping Use Vaping Use: Never used Substance Use Topics Alcohol use: Not Currently Comment: Seldom, not while Drug use: No PHYSICAL EXAMINATION: LMP 05/30/2022 BP 118/64 Wt 167 lb 6.4 oz (75.9 kg) LMP 05/30/2022 (Approximate) Yes BMI 27.86 kg/m GENERAL: pleasant, female in no apparent distress HEENT: Normocephalic, atraumatic, mucus membranes moist, and no lesions NECK: Supple, full range of motion, no adenopathy, and thyroid normal DERMATOLOGY: Normal, without lesions, non-icteric, and non-hirsute BREAST: soft, non-tender, symmetric, no dominant mass, normal nipple-areolar complex, no lymphadenopathy, and no nipple discharge CHEST: Normal inspiratory effort ABDOMEN: soft, non-tender, and no masses. Diastasis Recti 2 finger breadth from above umbilicus to Pubic symphysis PELVIC: external genitalia normal, normal Bartholin's glands, urethra, [place]'s glands, no vulvar lesions, no cervical lesions, good vaginal support, physiologic discharge present, normal appearing perineal body and perianal region BIMANUAL: uterus normal size, shape and consistency, no adnexal masses, and non-tender NEURO: alert and oriented x3,exam grossly non-focal EXTREMITIES: normal ASSESSMENT AND PLAN: 37 year old status post with normal course. Contraception plan: has vasectomy Follow up: GDM: Needs 2 hour GTT, referral to preventative cardiology Referral for pelvic floor physical therapy for DR Abelardo Ocampo APRN.CNM documented in this encounter [facility] 02-16-2023 Note HNO ID: [id number] Author: Misty Salvador RN Service: ? Author Type: ? Type: Progress Notes Filed: 02/16/2023 8:20 AM Note Text: Patient delivered via by Frans[facility] on 02/15/23 at [facility]. See OB history. Misty Salvador RN [facility] 02-16-2023 History of Presen t illness Narrative Patient delivered via by Fransico on 02/15/23 at [facility]. See OB history. Misty Salvador RN documented in this encounter [facility] 02-10-2023 Note HNO ID: [id number] Author: Suze Butt MD Service: ? Author Type: Physician Type: Progress Notes Filed: 02/10/2023 7:34 PM Note Text: NST SUMMARY PROVIDER ASSESSMENT AND INTERPRETATION Lori Agarwal is a 37 year old female, , who is at 38w1d with an KENNY of 02/23/2023, by Ultrasound dating method. Indications for NST: Gestational Diabetes - Diet Controlled Baseline: 140 Variability: Moderate Accelerations: Present 15 X 15 Decelerations: None Contractions: TOCO: None Interpretation: Reactive SIGNATURE: Suze Butt DO [facility] 02-02-2023 Miscellaneous Notes Formattin g of this note might be different from the original. Rx signed. Mariam Coyle APRN.CNM Patient notified. Scheduled her appointments for the next 2 weeks. Will send her a Quantine message with appointment times and insulin teaching. Patient declined a visit with health educator at this time. Prescriptions pending for NPH Kwikpen and pen needles if approved by her insurance. Please file. Thank you. Sanjana Saez RN Message left asking pt to call the office for further instructions. Also, need to know which pharmacy pt would like insulin sent to.Rx placed in Phone room. Nilsa Nam LPN Patient diagnosed with GDM and started on NPH 10 units at bedtime. Orders placed and RX printed out and will need faxed to pharmacy. She also needs assistance with scheduling weekly NST and BPP. The orders are placed. She is already 37 weeks gestation and potentially will be delivered at 39 weeks so she will only need next 2 weeks scheduled for testing. She needs to see only physicians moving forward therefore many of her already scheduled visits will need rescheduled. Please let me know if there are any questions or these cannot be completed. Thank you Mariam Coyle APRN.TRACY documented in this encounter [facility] documented as of this encounter (statuses as of 03/31/2023) [facility]09-15-2023 Miscellaneous Notes* Quick Notes - Zion Epstein MD - 01/20/2023 11:56 AM EDT RR- VB No. LOF No. CTXS No. Movement: present. Other c/o: uncomfortable Medication list reviewed. Physical Exam See Flow Sheet Abd: soft, nontender, gravid Ext: edema: Trace A/P 35w1d Estimated Date of Delivery: 02/23/23 GBS next visit kick counts f/u in 1-2 weeks or prn GDMA1- bs log reviewed, good control Zion Epstein M.D. [facility] Instructions* Patient Instructions* Jocelynn Purvis Ma - 01/20/2023 11:29 AM EDT SEQUENTIAL SCREENINGS The [facility] offers sequential screenings for women who are interested in screenings for chromosomal abnormalities and certain defects during a . The sequential screen combinesultrasound and blood tests to determine the risk of chromosomal abnormalities, including Down's Syndrome (Trisomy 21) and Trisomy 18, as well as open neural tube defects including spina bifida. Ultrasound examination is performed between 11 weeks and 13 weeks gestational age. Blood tests are drawn after the ultrasound and again later in the between 15 and 21 weeks gestational age. Please let your physician know if you are interested in this testing. It will require an appointment withour electromechanical assembly technician. This is not an ultrasound performed by a physician in our office during a routine visit. SIGNS AND SYMPTOMS OF LABOR 1. Contractions every 10 minutes or more often 2. Clear, pink, or brownish fluid (water) leaking from vagina 3. Feeling that baby is pushing down, pressure 4. Low, dull backache 5. Cramps that feel like a period 6. Cramps with or without diarrhea If you notice any of the above symptoms, contact our office at [phone] and ask to speak with anurse. After hours, you can call doctors registry at [phone] OR call [facility] at [phone] ask to have the doctor mining professionals paged. If you consider this an emergency, dial 9-1-4 or go to your nearest emergency department. NEED HELP? Are you dealing with a violent or abusive relationship? Are you a victim of rape or sexual assult? Call [facility] ([place]) 24 hour Crisis Hotline: 936.614.8486 or 042-407-8458. MANUAL Your Guide to a Healthy manual is now on-line. Visit [email or web address] to download your free copy documented [facility] Miscellaneous Notes* Quick Notes - Paula Contreras MD - 01/03/2023 2:31 PM EDT DM- Pt doing well today. Denies Vaginal Bleeding, Leaking fluid, or contractions. Pt reports good movement. BS well controlled. Repeat growth us in 4 weeks, pending today. RTO 2 weeks. Kick counts reviewed. Consider IOL 39 weeks. Paula Brenner MD documented in this encounterL[facility]08-29-2023 Instructions* Patient Instructions* Evelyn Abarham Ma - 01/03/2023 1:00 PM EDT SEQUENTIAL SCREENINGS [facility] offers sequential screenings for women who are interested in screenings for chromosomal abnormalities and certain defects during a . The sequential screen combinesultrasound and blood tests to determine the risk of chromosomal abnormalities, including Down's Syndrome (Trisomy 21) and Trisomy 18, as well as open neural tube defects including spina bifida. Ultrasound examination is performed between 11 weeks and 13 weeks gestational age. Blood tests are drawn after the ultrasound and again later in the between 15 and 21 weeks gestational age. Please let your physician know if you are interested in this testing. It will require an appointment withour electromechanical assembly technician. This is not an ultrasound performed by a physician in our office during a routine visit. SIGNS AND SYMPTOMS OF LABOR 1. Contractions every 10 minutes or more often 2. Clear, pink, or brownish fluid (water) leaking from vagina 3. Feeling that baby is pushing down, pressure 4. Low, dull backache 5. Cramps that feel like a period 6. Cramps with or without diarrhea If you notice any of the above symptoms, contact our office at [phone] and ask to speak with anurse. After hours, you can call doctors registry at [phone] OR call [facility] at [phone] ask to have the doctor mining professionals paged. If you consider this an emergency, dial 9-1-1 or go to your nearest emergency department. NEED HELP? Are you dealing with a violent or abusive relationship? Are you a victim of rape or sexual assult? Call [facility] ([place]) 24 hour Crisis Hotline: 883.321.9107 or 118-233-0323. MANUAL Your Guide to a Healthy manual is now on-line. Visit [email or web address] to download your free copy documented in [facility] encounterL[facility]08-[facility]23 Miscellaneous Notes* Quick Notes - Mariam Coyle APRN.CNM - 12/19/2022 11:27 AM EDT Lori Agarwal is a 37 year old female who presents at 30w4d Estimated Date of Delivery: 02/23/23 for a routine visit. Good movement. Denies headache, visual changes, chest pain, shortness of breath,vaginal bleeding, leakage of fluid, or dysuria. Feeling well, no complaints. Did not complete 3 hour GTT and has been taking blood glucose levels. Reviewed results and no out of range levels. She is considering completing the 3 hour GTT because if negative then her baby won't need tested after delivery. Size equal to dates. 16 TWG. PTL precautions reviewed. RTC in 2 weeks for growth US and SONDRA parekh if needed. Mariam Coyle APRN.CNM documented [facility] encounterL[facility]08-14[facility]23 Instructions* Patient Instructions* Sriram Mora Cma - 12/19/2022 11:11 AM EDT SEQUENTIAL SCREENINGS [facility] offers sequential screenings for women who are interested in screenings for chromosomal abnormalities and certain defects during a . The sequential screen combinesultrasound and blood tests to determine the risk of chromosomal abnormalities, including Down's Syndrome (Trisomy 21) and Trisomy 18, as well as open neural tube defects including spina bifida. Ultrasound examination is performed between 11 weeks and 13 weeks gestational age. Blood tests are drawn after the ultrasound and again later in the between 15 and 21 weeks gestational age. Please let your physician know if you are interested in this testing. It will require an appointment withour electromechanical assembly technician. This is not an ultrasound performed by a physician in our office during a routine visit. SIGNS AND SYMPTOMS OF LABOR 1. Contractions every 10 minutes or more often 2. Clear, pink, or brownish fluid (water) leaking from vagina 3. Feeling that baby is pushing down, pressure 4. Low, dull backache 5. Cramps that feel like a period 6. Cramps with or without diarrhea If you notice any of the above symptoms, contact our office at [phone] and ask to speak with anurse. After hours, you can call doctors registry at [phone] OR call [facility] at [phone] ask to have the doctor mining professionals paged. If you consider this an emergency, dial 9-1-8 or go to your nearest emergency department. NEED HELP? Are you dealing with a violent or abusive relationship? Are you a victim of rape or sexual assult? Call [facility] ([place]) 24 hour Crisis Hotline: 324.921.5316 or 149-429-0602. MANUAL Your Guide to a Healthy manual is now on-line. Visit [email or web address]/[email or web address] to download your free copy documented in this encounterLuther[facility]08-02-2023 Miscellaneous Notes* Telephone Encounter - Sanjana Saez RN - 12/07/2022 2:27 PM EDT 28w6d documented in this encounterLuther[facility] Hospital07-28-2023 Miscellaneous Notes* Telephone Encounter - Mariam Coyle APRN.CNM - 12/02/2022 10:50 AM EDT Thank you for the update. We can discuss at next visit. Mariam Coyle APRN.CNM * Telephone Encounter - Sanjana Saez RN - 12/02/2022 8:48 AM EDT Patient notified. Voiced understanding. Declines diabetic teaching at this time. She was counseled with her previous . She has all the materials and information from that visit. She plans todiscuss if there is testing that her baby will need to do after they are born since patient did notdo the 3 hour glucose. Sanjana Saez RN * Telephone Encounter - Mariam Coyle APRN.CNM - 12/02/2022 8:25 AM EDT Yes this sounds like a good plan. The only change is that we would like her to check her after meallevels 1 hour after instead of 2 hours. Please keep a log and send in results as previously planned. We can add the GDM order set so she will get education on diet etc. Mariam Coyle APRN.CNM * Telephone Encounter - Misty Salvador RN - 12/01/2022 4:51 PM EDT Patient notified. She had GDM with last two pregnancies. She wants to not do the 3 hour GTT and go straight to testing 4 times a day instead. She plans to buy meter and testing supplies OTC and starttesting. Next visit 12/19/22. Will send [employer] message with updated blood sugars after a week of testing. Any further recommendations? Misty Salvador RN * Telephone Encounter - Misty Salvador RN - 12/01/2022 4:50 PM EDT ----- Message from Mariam Coyle APRN.CNM sent at 11/30/2022 5:29 PM EDT ----- 1 hour GCT elevated. Please notify patient that she will need to complete a fasting 3 hour GTT. Order placed. Mariam Coyle APRN.CNM documented in this encounterL[facility]07-26-2023 NoteHNO ID: [id number] Author: Sriram Mora Cma Service: ? Author Type: ? Type: Progress Notes Filed: 11/30/2022 11:19 AM Note Text: Patient identified by name and date of . Lori Agarwal presents today for a vaccination of Tdap. Patient denies an allergy to latex: yes Patient denies a severe (life-threatening) allergy to a previous dose of Tdap, DTP, DTaP, DT or Td vaccine. Yes Patient denies history of epilepsy or neurological problems: Yes Patient is afebrile and denies being moderately or severely ill: Yes Patient denies history of Guillain-Newhall Syndrome (a severe paralytic illness): Yes Tdap Adacel injection was given without incident. See immunizations for details of immunizations administered today. VIS sheet provided: Yes Provider Mariam Coyle CNM was present in office at time of injection. Sriram Mora [facility]07-13-2023 Miscellaneous Notes* Telephone Encounter - Sanjana Saez RN - 11/17/2022 1:34 PM EDT Patient notified. Sanjana Saez RN * Telephone Encounter - Suze Butt MD - 11/17/2022 12:50 PM EDT If not allergic no harm to . Recommend cool compresses PRN * Telephone Encounter - Sanjana Saez RN - 11/17/2022 11:45 AM EDT 26w0d Patient states she was stung by a hornet directly on her abdomen. She does not have a bee allergy, but concerned about the baby. Reassurance given. Please advise. Sanjana Saez RN documented in this encounterLuther[facility] Hospital06-19-2023 Miscellaneous Notes* Quick Notes - Abelardo Ocampo APRN.CNM - 10/24/2022 11:18 AM EDT LETTY-S: Lori Agarwal is a 37 year old female who presents at 22w4d with KENNY:02/23/2023, by Ultrasound fora routine visit. Good FM. Denies headache, visual changes, chest pain, shortness of breath, vaginalbleeding, leakage of fluid, or dysuria. Feeling well, no complaints. O: See flow sheet Gen: No apparent distress Abd: Gravid, nontender ASSESSMENT/PLAN: 1. 22 weeks gestation of P: 1) PTL precautions reviewed and when to call 2) RTO in 4 weeks 3) 1hr GCT, CBC, RPR next visit 4) Continue ASA Abelardo Ocampo APRN.CNM documented in this encounterLuther[facility] Hospital06-19-2023 Instructions* Patient Instructions* Abelardo Ocampo APRN.CNM - 10/24/2022 11:09 AM EDT [facility] [phone] [place] [address] At Home [facility]: [facility]: Cheri Uriostegui [phone] [email or web address] Online: [email or web address] SIGNS AND SYMPTOMS OF LABOR 1. Contractions every 10 minutes or more often 2. Clear, pink, or brownish fluid (water) leaking from vagina 3. Feeling that baby is pushing down, pressure 4. Low, dull backache 5. Cramps that feel like a period 6. Cramps with or without diarrhea If you notice any of the above symptoms, contact our office at [phone] and ask to speak with anurse. After hours, you can call doctors registry at [phone] OR call [facility] at [phone] ask to have the doctor mining professionals paged. If you consider this an emergency, dial 9--1 or go to your nearest emergency department. NEED HELP? Are you dealing with a violent or abusive relationship? Are you a victim of rape or sexual assult? Call [facility] ([place]) 24 hour Crisis Hotline: 412.304.1980 or 839-169-8408. MANUAL Your Guide to a Healthy manual is now on-line. Visit [email or web address]/[email or web address] to download your free copy documented in this encounterLutheran Hospital05-25-2023 NoteHNO ID: [id number] Author: Arjun Mckenna MD Service: ? Author Type: Physician Type: Progress Notes Filed: 09/29/2022 2:46 PM Note Text: M Ultrasound Note 36yo at 19w0d presents for a detailed anatomic survey. Declined genetic screening. 1. Single, live, intrauterine . 2. biometry is consistent with the established gestational age. 3. Unremarkable anatomic survey. No markers for aneuploidy are noted. 4. Normal amniotic fluid. 5. The placenta is anterior without evidence of a previa. 6. Unremarkable adnexa bilaterally. 7. Normal transabdominal cervical length without evidence of funneling or dynamic changes. Echogenic intracardiac focus We discussed that an echogenic intracardiac focus (EIF) was seen on today's ultrasound. EIFs are identified in 3-5% of karyotypically normal fetuses. They do not represent a structural or functional cardiac abnormality, and they are not associated with cardiac malformations in the fetus or . Choroid plexus cyst On today?s ultrasound, unilateral choroid plexus cysts were identified. While choroid plexus cysts have been associated with aneuploidy, predominantly trisomy 18, in the absence of additional sonographic findings, this is considered a normal variant and does not increase the risk of trisomy 18 above the maternal age or serum screen related risk. Choroid plexus cysts are present in up to 3.6% of all fetuses in the second trimester. Choroid plexus cysts have no clinical significance related to brain development or function. The patient was counseled regarding the sonographic findings and to the potential for non-visualized malformations. Offered genetic screening with cell-free DNA and/or diagnostic testing. Patient would like to discuss further with her before making a decision about genetic screening. Arjun Mckenna MD September 29, 2022 2:42 [facility]05-15-2023 Miscellaneous Notes* Quick Notes - Abelardo Ocampo APRN.CNM - 09/19/2022 1:17 PM EDT LETTY-S: Lori Agarwal is a 36 year old female who presents at 17w4d with KENNY:02/23/2023, by Ultrasound fora routine visit. Good FM. Denies headache, visual changes, chest pain, shortness of breath, vaginalbleeding, leakage of fluid, or dysuria. Feeling well, no complaints. O: See flow sheet Gen: No apparent distress Abd: Gravid, nontender S=D, 5 lb TWG ASSESSMENT/PLAN: 1. 17 weeks gestation of P: 1) PTL precautions reviewed and when to call 2) RTO in 4 weeks 3) Anatomy US ordered 4) Declines aneuploidy testing 5) Reviewed labs Abelardo Ocampo APRN.CNM * Quick Notes - Abelardo Ocampo APRN.CNM - 09/19/2022 1:15 PM EDT LETTY-S: Lori Agarwal is a 36 year old female who presents at 17w4d with KENNY:02/23/2023, by Ultrasound fora routine visit. Good FM. Denies headache, visual changes, chest pain, shortness of breath, vaginalbleeding, leakage of fluid, or dysuria. Feeling well, no complaints. O: See flow sheet Gen: No apparent distress Abd: Gravid, nontender ASSESSMENT/PLAN: 1. 17 weeks gestation of P: 1) PTL precautions reviewed and when to call 2) RTO in 4 weeks 3) Anatomy US scheduled 4) Reviewed PN labs 5) Declines aneuploidy testing Abelardo Ocampo APRN.CNM documented in this encounterLuther[facility] Hospital05-15-2023 Instructions* Patient Instructions* Sriram Mora Cma - 09/19/2022 1:15 PM EDT SEQUENTIAL SCREENINGS [facility] offers sequential screenings for women who are interested in screenings for chromosomal abnormalities and certain defects during a . The sequential screen combinesultrasound and blood tests to determine the risk of chromosomal abnormalities, including Down's Syndrome (Trisomy 21) and Trisomy 18, as well as open neural tube defects including spina bifida. Ultrasound examination is performed between 11 weeks and 13 weeks gestational age. Blood tests are drawn after the ultrasound and again later in the between 15 and 21 weeks gestational age. Please let your physician know if you are interested in this testing. It will require an appointment withour electromechanical assembly technician. This is not an ultrasound performed by a physician in our office during a routine visit. SIGNS AND SYMPTOMS OF LABOR 1. Contractions every 10 minutes or more often 2. Clear, pink, or brownish fluid (water) leaking from vagina 3. Feeling that baby is pushing down, pressure 4. Low, dull backache 5. Cramps that feel like a period 6. Cramps with or without diarrhea If you notice any of the above symptoms, contact our office at [phone] and ask to speak with anurse. After hours, you can call doctors registry at [phone] OR call [facility] at [phone] ask to have the doctor mining professionals paged. If you consider this an emergency, dial 0-8-8 or go to your nearest emergency department. NEED HELP? Are you dealing with a violent or abusive relationship? Are you a victim of rape or sexual assult? Call [facility] ([place]) 24 hour Crisis Hotline: 876.798.5201 or 284-438-6217. MANUAL Your Guide to a Healthy manual is now on-line. Visit [email or web address]/HealthyPregnancyGuide to download your free copy documented in this encounterLuther[facility] Hospital04-12-2023 Miscellaneous Notes* Quick Notes - Abelardo Ocampo APRN.TRACY - 08/17/2022 11:13 AM EDT LETTY-S: Lori Agarwal is a 36 year old female who presents at 12w6d with KENNY: 02/23/2023, by Ultrasound for a routine visit. Denies headache, visual changes, chest pain, shortness of breath, vaginal bleeding, leakage of fluid, or dysuria. Feeling well, no complaints. O: See flow sheet Gen: No apparent distress Abd: nontender KENNY:02/23/23 by US ASSESSMENT/PLAN: 1. 11 weeks gestation of 2. Advanced maternal age in multigravida, first trimester P: 1) PTL precautions reviewed and when to call 2) RTO in 4 weeks 3) Declines aneuploidy testing 4) Anatomy US ordered Abelardo Ocampo APRN.CNM [place] [address]-12-2023 Instructions* Patient Instructions* Sriram Mora Audit Reviewer - 08/17/2022 10:44 AM EDT SEQUENTIAL SCREENINGS [facility] offers sequential screenings for women who are interested in screenings for chromosomal abnormalities and certain defects during a . The sequential screen combinesultrasound and blood tests to determine the risk of chromosomal abnormalities, including Down's Syndrome (Trisomy 21) and Trisomy 18, as well as open neural tube defects including spina bifida. Ultrasound examination is performed between 11 weeks and 13 weeks gestational age. Blood tests are drawn after the ultrasound and again later in the between 15 and 21 weeks gestational age. Please let your physician know if you are interested in this testing. It will require an appointment withour electromechanical assembly technician. This is not an ultrasound performed by a physician in our office during a routine visit. SIGNS AND SYMPTOMS OF LABOR 1. Contractions every 10 minutes or more often 2. Clear, pink, or brownish fluid (water) leaking from vagina 3. Feeling that baby is pushing down, pressure 4. Low, dull backache 5. Cramps that feel like a period 6. Cramps with or without diarrhea If you notice any of the above symptoms, contact our office at [phone] and ask to speak with anurse. After hours, you can call doctors registry at [phone] OR call [facility] at [phone] ask to have the doctor mining professionals paged. If you consider this an emergency, dial 01-06-1 or go to your nearest emergency department. NEED HELP? Are you dealing with a violent or abusive relationship? Are you a victim of rape or sexual assult? Call [facility] ([place]) 24 hour Crisis Hotline: 475.799.3026 or 951-614-0768. MANUAL Your Guide to a Healthy manual is now on-line. Visit [email or web address]/HealthyPregnancyGuide to download your free copy documented in this encounterLutheran Hospital03-15-2023 NoteHNO ID: [id number] Author: Abelardo Ocampo APRN.CNM Service: ? Author Type: Co Founder And Director Type: Progress Notes Filed: 07/20/2022 4:20 PM Note Text: INITIAL OB ASSESSMENT OB Provider: Abelardo Ocampo CNM HPI: Lori Agarwal is a 36 year old female here to establish Obstetrical Care. Patient's last menstrual period was 05/30/2022 (exact date). from OB Dating Form. Cycle length: 30 days. Had full menses in May mid and then had light spotting 05/30/22. Nothing in June. Complaints: nausea without vomiting was unplanned but accepted. OB History T3 L3 SAB0 IAB0 Ectopic0 Multiple0 Live Births3 Prior : never History of 4th degree laceration: No Patient's Risk Screening for delivery: Have you had a prior vásquez between 20w and 36w6d?: No History of abnormal pap: No Prior treatment for cervical dysplasia: none. 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 Gender: male History of STDs: None PAST MEDICAL HISTORY Diagnosis Date anxiety/depression Dysmenorrhea fracture arm basketball accident History of gestational diabetes 07/19/2018 PAST SURGICAL HISTORY Procedure Laterality Date EXTRACTION, ERUPTED TOOTH OR EXPOSED ROOT (ELEVATION AND/OR FORCEPS REMOVAL) 12/2007 REMOVE TONSIL AND ADENOI UNDER AGE 12 1995 Current Outpatient Medications on File Prior to Visit Medication Sig lactic zceq-daigqz-ofcblzxqt (PHEXXI) 1.8-1-0.4 % gel Insert 1 prefilled applicator vaginally immediately before or up to 1 hour before each act of vaginal intercourse COMPOUNDED PRESCRIPTION Massage therapy as needed for back, neck and shoulder pain acetaminophen (TYLENOL ORAL) Take by mouth. Lactobacillus acidophilus (PROBIOTIC ORAL) Take by mouth. Ospnhsbx-Nt-Ymz-Fe-FA tab Take 1 tablet by mouth. No current facility-administered medications on file prior to visit. Review of Systems: GENERAL: Negative for: Fever or Chills HEENT: Negative for: Headache, Impaired Vision, Ringing in Ears, Nosebleeds NECK: Negative for: Swelling, Pain, Stiffness RESPIRATORY: Negative for: Cough, Shortness of breath, Wheezing GASTROINTESTINAL: Negative for: Heartburn, Constipation, Diarrhea, Blood in stool, Vomiting MUSCULOSKELETAL: Negative for: Muscle or joint pain, stiffness, Joint swelling NEUROLOGIC/PSYCHIATRIC: Negative for: Weakness, Paralysis, Numbness, Tingling, Tremor, Anxiety, Depression, Memory loss SKIN: Negative for: Rash, Itching GENITOURINARY: Negative for: vaginal itching, vaginal discharge, hematuria or dysuria PHYSICAL EXAM: BP 102/60 Wt 159 lb 9.6 oz (72.4kg) LMP 05/30/2022 GENERAL: pleasant female in no apparent distress DERMATOLOGY: Normal, without lesions, non-icteric, and non-hirsute NECK: Supple, full range of motion, no adenopathy, and thyroid normal CHEST: Clear to auscultation, Normal inspiratory effort, Regular rate and rhythm, and No murmurs, clicks, rubs or gallops BREAST: soft, non-tender, symmetric, no dominant mass, normal nipple-areolar complex, no lymphadenopathy, and no nipple discharge ABDOMEN: soft, non-tender, and no masses NEURO: alert and oriented x3,exam grossly non-focal PELVIS: External genitalia normal without lesions. Perineal body intact. No vaginal or cervical lesions. Cervix closed. Uterus 8 week size. No adnexal masses or tenderness. Clinical Pelvimetry: Pelvimetry clinically assessed as adequate Limited OB ultrasound exam: single intrauterine , positive cardiac activity, crown-rump length 8w5d, and normal bilateral adnexa LMP 7w2d US 8w5d limited bedside US inconsistent with LMP OB Risk Screening: Completed, positive findings include: Patient will be less than 17 or greater than 34 at the time of Delivery ASSESSMENT: 36 year old at 7-8 wks gestational age PLAN: 1) Patient oriented to practice. Discussed nutrition, folic acid supplementation, dietary guidelines, exercise, smoking, alcohol, caffeine, and drug use. Discussed routine OB labs including STD/HIV. Patient declines all aneuploidy screening. CF carrier screening discussed and declined. 2) PN labs, HgbA1C today 3) Dating US in 1-2 weeks. LMP inconsistent with bedside US. 4) Recommend ASA 162mg starting at 12 weeks, review next visit. Follow up in 4 weeks or sooner prn. Abelardo Ocampo APRN.[facility]03-15-2023 History of Present illness Narrative* Abelardo Ocampo APRN.CNM - 07/20/2022 8:45 AM EDT INITIAL OB ASSESSMENT OB Provider: Abelardo Ocampo CNM HPI: Lori Agarwal is a 36 year old female here to establish Obstetrical Care. Patient's last menstrual period was 05/30/2022 (exact date). from OB Dating Form. Cycle length: 30 days. Had full menses in May mid and then had light spotting 05/30/22. Nothing in June. Complaints: nausea without vomiting was unplanned but accepted. OB History T3 L3 SAB0 IAB0 Ectopic0 Multiple0 Live Births3 Prior : never History of 4th degree laceration: No Patient's Risk Screening for delivery: Have you had a prior vásquez between 20w and 36w6d?: No History of abnormal pap: No Prior treatment for cervical dysplasia: none. 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 Gender: male History of STDs: None PAST MEDICAL HISTORY Diagnosis Date anxiety/depression Dysmenorrhea fracture arm basketball accident History of gestational diabetes 07/19/2018 PAST SURGICAL HISTORY Procedure Laterality Date EXTRACTION, ERUPTED TOOTH OR EXPOSED ROOT (ELEVATION AND/OR FORCEPS REMOVAL) 12/2007 REMOVE TONSIL AND ADENOI UNDER AGE 12 1995 Current Outpatient Medications on File Prior to Visit Medication Sig lactic lvvs-uolcmc-yzhnmbysr (PHEXXI) 1.8-1-0.4 % gel Insert 1 prefilled applicator vaginally immediately before or up to 1 hour before each act of vaginal intercourse COMPOUNDED PRESCRIPTION Massage therapy as needed for back, neck and shoulder pain acetaminophen (TYLENOL ORAL) Take by mouth. Lactobacillus acidophilus (PROBIOTIC ORAL) Take by mouth. Uecftvhm-Sd-Guv-Fe-FA tab Take 1 tablet by mouth. No current facility-administered medications on file prior to visit. Review of Systems: GENERAL: Negative for: Fever or Chills HEENT: Negative for: Headache, Impaired Vision, Ringing in Ears, Nosebleeds NECK: Negative for: Swelling, Pain, Stiffness RESPIRATORY: Negative for: Cough, Shortness of breath, Wheezing GASTROINTESTINAL: Negative for: Heartburn, Constipation, Diarrhea, Blood in stool, Vomiting MUSCULOSKELETAL: Negative for: Muscle or joint pain, stiffness, Joint swelling NEUROLOGIC/PSYCHIATRIC: Negative for: Weakness, Paralysis, Numbness, Tingling, Tremor, Anxiety, Depression, Memory loss SKIN: Negative for: Rash, Itching GENITOURINARY: Negative for: vaginal itching, vaginal discharge, hematuria or dysuria PHYSICAL EXAM: BP 102/60 Wt 159 lb 9.6 oz (72.4kg) LMP 05/30/2022 GENERAL: pleasant female in no apparent distress DERMATOLOGY: Normal, without lesions, non-icteric, and non-hirsute NECK: Supple, full range of motion, no adenopathy, and thyroid normal CHEST: Clear to auscultation, Normal inspiratory effort, Regular rate and rhythm, and No murmurs, clicks, rubs or gallops BREAST: soft, non-tender, symmetric, no dominant mass, normal nipple-areolar complex, no lymphadenopathy, and no nipple discharge ABDOMEN: soft, non-tender, and no masses NEURO: alert and oriented x3,exam grossly non-focal PELVIS: External genitalia normal without lesions. Perineal body intact. No vaginal or cervical lesions. Cervix closed. Uterus 8 week size. No adnexal masses or tenderness. Clinical Pelvimetry: Pelvimetry clinically assessed as adequate Limited OB ultrasound exam: single intrauterine , positive cardiac activity, crown-rump length 8w5d, and normal bilateral adnexa LMP 7w2d US 8w5d limited bedside US inconsistent with LMP OB Risk Screening: Completed, positive findings include: Patient will be less than 17 or greater than 34 at the time of Delivery ASSESSMENT: 36 year old at 7-8 wks gestational age PLAN: 1) Patient oriented to practice. Discussed nutrition, folic acid supplementation, dietary guidelines, exercise, smoking, alcohol, caffeine, and drug use. Discussed routine OB labs including STD/HIV. Patient declines all aneuploidy screening. CF carrier screening discussed and declined. 2) PN labs, HgbA1C today 3) Dating US in 1-2 weeks. LMP inconsistent with bedside US. 4) Recommend ASA 162mg starting at 12 weeks, review next visit. Follow up in 4 weeks or sooner prn. Abelardo Ocampo APRN.CNM [facility] Instructions* Patient Instructions* Abelardo Ocampo APRN.CNM - 07/20/2022 8:31 AM EDT Please select the following link to access the [facility] Your Guide to a Healthy . [email or web address] Nausea and Vomitin) Vitamin B6 50 mg by mouth twice daily. Take this daily until approximately 14 weeks for prevention. 2) Unisom 1/2 tablet by mouth at bedtime. May increase to full tablet if needed. If no improvement in nausea may up to a full tablet every 8 hours as needed. Magnesium citrate 400mg by mouth at bedtime, sleep, muscle aches, constipation documented [facility]11-21-2022 Instructions* Patient Instructions* Abelardo Ocampo APRN.CNM - 03/28/2022 2:23 PM EST Vasectomy-[facility] and can make this virtually Vasectomy Request a Consultation [place] Appointments: [phone] [place] Appointments: [phone] [place] Appointments: [phone] Diastasis Recti Everymother Jose M documented in this encounterL[facility]11-21-2022 History of Present illness Narrative* Abelardo Ocampo APRN.CNM - 03/28/2022 1:18 PM EST Lori is a 36 year old who presents for an annual gynecologic exam without complaints. Menses: cycles every 30 days and 5-7 days of flow. Contraception: spermicide HPV vaccine: No Last Pap: 02/14/2018 normal HPV: 02/09/2018 negative History of abnormal pap: No Last mammogram: never Sexually active: Yes Time with current partner: 7 years, together 8 Pain with intercourse: No Postcoital bleeding: No OB History T3 L3 SAB0 IAB0 Ectopic0 Multiple0 Live Births3 Ndt Inspector History LMP: 01/07/2020, Unknown Age at Menarche: Age at First : Age at Menopause: Ndt Inspector History Comments: Sexual Activity: Yes; Male Contraception: No contraception data on record PAST MEDICAL HISTORY Diagnosis Date anxiety/depression Dysmenorrhea fracture arm basketball accident History of gestational diabetes 07/19/2018 PAST SURGICAL HISTORY Procedure Laterality Date EXTRACTION, ERUPTED TOOTH OR EXPOSED ROOT (ELEVATION AND/OR FORCEPS REMOVAL) 12/2007 REMOVE TONSIL AND ADENOI UNDER AGE 12 1995 FAMILY HISTORY Problem Relation Age of Onset Arthritis Mother Maternal Grandparents-psoriatic and rhuematoid Hypertension Mother other (kidney stones) Mother Arthritis Father Heart Father Murmur other (kidney stones) Sister other (gestational diabetes) Sister Hypertension Brother Ischemic Heart Disease Maternal Grandmother Cancer Maternal Grandfather Melanoma Hypertension Maternal Grandfather Heart Maternal Grandfather [place] Cancer Paternal Grandfather other (Penicillin allergy) Daughter No Known Problems Daughter SOCIAL HISTORY Social History Tobacco Use Smoking status: Never Smokeless tobacco: Never Vaping Use Vaping Use: Never used Substance Use Topics Alcohol use: Not Currently Comment: Seldom, not while Drug use: No REVIEW OF SYSTEMS Abdomen: No abdominal pain, nausea, vomiting, diarrhea, or constipation. No bloating, early satiety, indigestion, or increased flatulence. Bladder: No dysuria, gross hematuria, urinary frequency, urinary urgency, or incontinence. Breast: No breast lumps, nipple d/c, overlying skin changes, redness or skin retraction. Allergies and current medication updated:Yes EXAM: LMP 01/07/2020 BP 104/62 Ht 5' 5 (1.651 m) Wt 160 lb 6.4 oz (72.8 kg) LMP 03/07/2022 (Within Days) No BMI 26.69 kg/m GENERAL: pleasant, female in no apparent distress HEENT: Normocephalic, atraumatic, mucus membranes moist, and no lesions NECK: Supple, full range of motion, no adenopathy, and thyroid normal DERMATOLOGY: Normal, without lesions, non-icteric, and non-hirsute BREAST: soft, non-tender, symmetric, no dominant mass, normal nipple-areolar complex, no lymphadenopathy, and no nipple discharge CHEST: Normal inspiratory effort ABDOMEN: soft, non-tender, and no masses. 3 in diastasis recti present from above to below umbilicus. PELVIC: external genitalia normal, normal Bartholin's glands, urethra, [place]'s glands, no vulvar lesions, no cervical lesions, good vaginal support, physiologic discharge present, normal appearing perineal body and perianal region BIMANUAL: uterus normal size, shape and consistency, no adnexal masses, and non-tender RECTOVAGINAL: deferred. NEURO: alert and oriented x3,exam grossly non-focal EXTREMITIES: normal ASSESSMENT/PLAN: 1. Encounter for gynecological examination (general) (routine) without abnormal findings - ICD9: V72.31, ICD10: Z01.419 (primary diagnosis) - Completed pelvic and breast exam - Encouraged monthly BSE - Follow up for annual exam in one year. 2. Diastasis recti - ICD9: 728.84, ICD10: M62.08 - CONSULT TO PHYSICAL THERAPY 3. control counseling - ICD9: V25.09, ICD10: Z30.09 4. Evaluation for contraception barrier or spermicide - ICD9: V25.02, ICD10: Z30.018 -Discussed barrier methods and different options/efficacy. 1) Health maintenance: Pap/HPV up to date. Nutrition, exercise and routine health maintenance exams reviewed. Calcium/Vitamin D supplementation information provided. 2) Contraception: spermicide. Contraceptive options reviewed and information provided. 3) STD screening: Declined STD check. 4) Follow up one year or sooner as needed Abelardo Ocampo APRN.CNM documented in this encounterL[facility]06-09-2021 History of Past illness Narrative* Problem Noted Date Resolved Date Supervision of high risk in third trim terrell 10/14/2020 11/30/2020 Excessive growth affec ting management of in third trimester 09/22/2020 11/30/2020 Overview: 10/16/20-Fetus is large for gestational age. EFW is 9 lb 12 oz (4426 g), which is at the 99th percentile. Abelardo Ocampo APRN.CNM 10/01/20- Fetus is large for gestational age with EFW of 7 lb 9 oz, which is at the 98th percentile at 35w3d US. Would recommend delivery at 39 weeks, if fetus remains large for gestational age. Per visit. Abelardo Ocampo APRN.CNM Abnormal glucose in , antepartum 201911/30/2020 Overview: 03/04/20-Elevated early 1hr GCT 154, 3hr GTT ordered. Abelardo Ocampo APRN.CNM Uterine size-date discrepancy, first trimester 1 11/30/2020 Overview: 03/03/20- LMP inconsistent with US, formal dating US in 2 weeks. Abelardo Ocampo APRN.CNM History of gestational diabe tammi in prior , currently 02/27/2020 11/30/2020 Overview: 03/03/20-1hr GCT at NOB visit. Abelardo Ocampo APRN.CNM 02/27/2020Patient had gestational diabetes with her last . She will plan on doing a 1 hour glucose test at her new OB appointment. TKRN History of gestational diabetes mellitus 019 03/03/2020 Gestational diabetes mellitus, class A1 07/20/19 19 11/30/2020 Overview: 09/22/20 - LGA on growth US, [facility] recommends delivery at 39 weeks if remains LGA - Vincent Rubio MD 03/19/20-failed 3-hour GTT. History of GDM class A1 with last . 11/19/18 had 2hr GTT at [facility] and normal, lab scanned into chart. Reviewed GDM diagnosis with patient. She feels she is knowledgeable about diagnosis, testing, and diet. Declines consultation with health educator and digital media manager. She will check fasting blood sugars and 2-hour postprandials 3 times a day and bring to next visit.Abelardo Ocampo APRN.CNM Abnormal glucose complicating 07/17/19 19 10/23/2018 Overview: 07/16/18: 3hr GTT ordered. Paula Brenner MD Encounter for supervision of other normal , first trimester 02/11/2016 10/23/2018 Overview: documented as of this encounter (statuses as of 04/01/2022) [facility] of Past illness Narrative* Problem Noted Date Resolved Date Supervision of high risk in third trim terrell 10/14/2020 11/30/2020 Excessive growth affec ting management of in third trimester 09/22/2020 11/30/2020 Overview: 10/16/20-Fetus is large for gestational age. EFW is 9 lb 12 oz (4426 g), which is at the 99th percentile. Abelardo Ocampo APRN.CNM 10/01/20- Fetus is large for gestational age with EFW of 7 lb 9 oz, which is at the 98th percentile at 35w3d US. Would recommend delivery at 39 weeks, if fetus remains large for gestational age. Per visit. Abelardo Ocampo APRN.CNM Abnormal glucose in , antepartum 10/28/ 2020 11/30/2020 Overview: 03/04/20-Elevated early 1hr GCT 154, 3hr GTT ordered. Abelardo Ocampo APRN.CNM Uterine size-date discrepancy, first trimester 1 11/30/2020 Overview: 03/03/20- LMP inconsistent with US, formal dating US in 2 weeks. Abelardo Ocampo APRN.CNM History of gestational diabe tammi in prior , currently 02/27/2020 11/30/2020 Overview: 03/03/20-1hr GCT at NOB visit. Abelardo Ocampo APRN.CNM 02/27/2020Patient had gestational diabetes with her last . She will plan on doing a 1 hour glucose test at her new OB appointment. TKRN History of gestational diabetes mellitus 019 03/03/2020 Gestational diabetes mellitus, class A1 07/20/19 19 11/30/2020 Overview: 09/22/20 - LGA on growth US, [facility] recommends delivery at 39 weeks if remains LGA - Vincent Rubio MD 03/19/20-failed 3-hour GTT. History of GDM class A1 with last . 11/19/18 had 2hr GTT at [facility] and normal, lab scanned into chart. Reviewed GDM diagnosis with patient. She feels she is knowledgeable about diagnosis, testing, and diet. Declines consultation with health educator and digital media manager. She will check fasting blood sugars and 2-hour postprandials 3 times a day and bring to next visit.Abelardo Ocampo APRN.CNM Abnormal glucose complicating 07/17/19 19 10/23/2018 Overview: 07/16/18: 3hr GTT ordered. Paula Brenner MD Encounter for supervision of other normal , first trimester 02/11/2016 10/23/2018 Overview: documented as of this encounter (statuses as of 07/12/2022) [facility] of Past illness Narrative* Problem Noted Date Resolved Date Supervision of high risk in third trim terrell 10/14/2020 11/30/2020 Excessive growth affec ting management of in third trimester 09/22/2020 11/30/2020 Overview: 10/16/20-Fetus is large for gestational age. EFW is 9 lb 12 oz (4426 g), which is at the 99th percentile. Abelardo Ocampo APRN.CNM 10/01/20- Fetus is large for gestational age with EFW of 7 lb 9 oz, which is at the 98th percentile at 35w3d US. Would recommend delivery at 39 weeks, if fetus remains large for gestational age. Per visit. Abelardo Ocampo APRN.CNM Abnormal glucose in , antepartum 201911/30/2020 Overview: 03/04/20-Elevated early 1hr GCT 154, 3hr GTT ordered. Abelardo Ocampo APRN.CNM Uterine size-date discrepancy, first trimester 1 11/30/2020 Overview: 03/03/20- LMP inconsistent with US, formal dating US in 2 weeks. Abelardo Ocampo APRN.CNM History of gestational diabe tammi in prior , currently 02/27/2020 11/30/2020 Overview: 03/03/20-1hr GCT at NOB visit. Abelardo Ocampo APRN.CNM 02/27/2020Patient had gestational diabetes with her last . She will plan on doing a 1 hour glucose test at her new OB appointment. TKRN History of gestational diabetes mellitus 019 03/03/2020 Gestational diabetes mellitus, class A1 07/20/19 19 11/30/2020 Overview: 09/22/20 - LGA on growth US, [facility] recommends delivery at 39 weeks if remains LGA - Vincent Rubio MD 03/19/20-failed 3-hour GTT. History of GDM class A1 with last . 11/19/18 had 2hr GTT at [facility] and normal, lab scanned into chart. Reviewed GDM diagnosis with patient. She feels she is knowledgeable about diagnosis, testing, and diet. Declines consultation with health educator and digital media manager. She will check fasting blood sugars and 2-hour postprandials 3 times a day and bring to next visit.Abelardo Ocampo APRN.CNM Abnormal glucose complicating 07/17/19 19 10/23/2018 Overview: 07/16/18: 3hr GTT ordered. Paula Brenner MD documented as of this encounter (statuses as of 07/20/2022) [facility] of Past illness Narrative* Problem Noted Date Resolved Date Supervision of high risk in third trim terrell 10/14/2020 11/30/2020 Excessive growth affec ting management of in third trimester 09/22/2020 11/30/2020 Overview: 10/16/20-Fetus is large for gestational age. EFW is 9 lb 12 oz (4426 g), which is at the 99th percentile. Abelardo Ocampo APRN.CNM 10/01/20- Fetus is large for gestational age with EFW of 7 lb 9 oz, which is at the 98th percentile at 35w3d US. Would recommend delivery at 39 weeks, if fetus remains large for gestational age. Per visit. Abelardo Ocampo APRN.CNM Abnormal glucose in , antepartum 201911/30/2020 Overview: 03/04/20-Elevated early 1hr GCT 154, 3hr GTT ordered. Abelardo Ocampo APRN.CNM Uterine size-date discrepancy, first trimester 1 11/30/2020 Overview: 03/03/20- LMP inconsistent with US, formal dating US in 2 weeks. Abelardo Ocampo APRN.CNM History of gestational diabe tammi in prior , currently 02/27/2020 11/30/2020 Overview: 03/03/20-1hr GCT at NOB visit. Abelardo Ocampo APRN.CNM 02/27/2020Patient had gestational diabetes with her last . She will plan on doing a 1 hour glucose test at her new OB appointment. TKRN History of gestational diabetes mellitus 019 03/03/2020 Gestational diabetes mellitus, class A1 07/20/19 19 11/30/2020 Overview: 09/22/20 - LGA on growth US, [facility] recommends delivery at 39 weeks if remains LGA - Vincent Rubio MD 03/19/20-failed 3-hour GTT. History of GDM class A1 with last . 11/19/18 had 2hr GTT at [facility] and normal, lab scanned into chart. Reviewed GDM diagnosis with patient. She feels she is knowledgeable about diagnosis, testing, and diet. Declines consultation with health educator and digital media manager. She will check fasting blood sugars and 2-hour postprandials 3 times a day and bring to next visit.Abelardo Ocampo APRN.CNM Abnormal glucose complicating 07/17/19 19 10/23/2018 Overview: 07/16/18: 3hr GTT ordered. Paula Brenner MD documented as of this encounter (statuses as of 08/01/2022) [facility] of Past illness Narrative* Problem Noted Date Resolved Date Supervision of high risk in third trim terrell 10/14/2020 11/30/2020 Excessive growth affec ting management of in third trimester 09/22/2020 11/30/2020 Overview: 10/16/20-Fetus is large for gestational age. EFW is 9 lb 12 oz (4426 g), which is at the 99th percentile. Abelardo Ocampo APRN.CNM 10/01/20- Fetus is large for gestational age with EFW of 7 lb 9 oz, which is at the 98th percentile at 35w3d US. Would recommend delivery at 39 weeks, if fetus remains large for gestational age. Per visit. Abelardo Ocampo APRN.CNM Abnormal glucose in , antepartum 201911/30/2020 Overview: 03/04/20-Elevated early 1hr GCT 154, 3hr GTT ordered. Abelardo Ocampo APRN.CNM Uterine size-date discrepancy, first trimester 1 11/30/2020 Overview: 03/03/20- LMP inconsistent with US, formal dating US in 2 weeks. Abelardo Ocampo APRN.CNM History of gestational diabe tammi in prior , currently 02/27/2020 11/30/2020 Overview: 03/03/20-1hr GCT at NOB visit. Abelardo Ocampo APRN.CNM 02/27/2020Patient had gestational diabetes with her last . She will plan on doing a 1 hour glucose test at her new OB appointment. TKRN History of gestational diabetes mellitus 019 03/03/2020 Gestational diabetes mellitus, class A1 07/20/19 19 11/30/2020 Overview: 09/22/20 - LGA on growth US, [facility] recommends delivery at 39 weeks if remains LGA - Vincent Rubio MD 03/19/20-failed 3-hour GTT. History of GDM class A1 with last . 11/19/18 had 2hr GTT at [facility] and normal, lab scanned into chart. Reviewed GDM diagnosis with patient. She feels she is knowledgeable about diagnosis, testing, and diet. Declines consultation with health educator and digital media manager. She will check fasting blood sugars and 2-hour postprandials 3 times a day and bring to next visit.Abelardo Ocampo APRN.MELINDAM Abnormal glucose complicating 07/17/19 19 10/23/2018 Overview: 07/16/18: 3hr GTT ordered. Paula Brenner MD documented as of this encounter (statuses as of 08/07/2022) [facility]09[facility]2021 History of Past illness Narrative* Problem Noted Date Resolved Date Supervision of high risk in third trim terrell 10/14/2020 11/30/2020 Excessive growth affec ting management of in third trimester 09/22/2020 11/30/2020 Overview: 10/16/20-Fetus is large for gestational age. EFW is 9 lb 12 oz (4426 g), which is at the 99th percentile. Abelardo Ocampo APRN.CNM 10/01/20- Fetus is large for gestational age with EFW of 7 lb 9 oz, which is at the 98th percentile at 35w3d US. Would recommend delivery at 39 weeks, if fetus remains large for gestational age. Per visit. Abelardo Ocampo APRN.CNM Abnormal glucose in , antepartum 201911/30/2020 Overview: 03/04/20-Elevated early 1hr GCT 154, 3hr GTT ordered. Abelardo Ocampo APRN.CNM Uterine size-date discrepancy, first trimester 1 11/30/2020 Overview: 03/03/20- LMP inconsistent with US, formal dating US in 2 weeks. Abelardo Ocampo APRN.CNM History of gestational diabe tammi in prior , currently 02/27/2020 11/30/2020 Overview: 03/03/20-1hr GCT at NOB visit. Abelardo Ocampo APRN.CNM 02/27/2020Patient had gestational diabetes with her last . She will plan on doing a 1 hour glucose test at her new OB appointment. TKRN History of gestational diabetes mellitus 019 03/03/2020 Gestational diabetes mellitus, class A1 07/20/19 19 11/30/2020 Overview: 09/22/20 - LGA on growth US, [facility] recommends delivery at 39 weeks if remains LGA - Vincent Rubio MD 03/19/20-failed 3-hour GTT. History of GDM class A1 with last . 11/19/18 had 2hr GTT at [facility] and normal, lab scanned into chart. Reviewed GDM diagnosis with patient. She feels she is knowledgeable about diagnosis, testing, and diet. Declines consultation with health educator and digital media manager. She will check fasting blood sugars and 2-hour postprandials 3 times a day and bring to next visit.Abelardo Ocampo APRN.CNM Abnormal glucose complicating 07/17/19 19 10/23/2018 Overview: 07/16/18: 3hr GTT ordered. Paula Brenner MD documented as of this encounter (statuses as of 08/18/2022) [facility] History of Past illness Narrative* Problem Noted Date Resolved Date Supervision of high risk in third trim terrell 10/14/2020 11/30/2020 Excessive growth affec ting management of in third trimester 09/22/2020 11/30/2020 Overview: 10/16/20-Fetus is large for gestational age. EFW is 9 lb 12 oz (4426 g), which is at the 99th percentile. Abelardo Ocampo APRN.CNM 10/01/20- Fetus is large for gestational age with EFW of 7 lb 9 oz, which is at the 98th percentile at 35w3d US. Would recommend delivery at 39 weeks, if fetus remains large for gestational age. Per visit. Abelardo Ocampo APRN.CNM Abnormal glucose in , antepartum 201911/30/2020 Overview: 03/04/20-Elevated early 1hr GCT 154, 3hr GTT ordered. Abelardo Ocampo APRN.CNM Uterine size-date discrepancy, first trimester 1 11/30/2020 Overview: 03/03/20- LMP inconsistent with US, formal dating US in 2 weeks. Abelardo Ocampo APRN.CNM History of gestational diabe tammi in prior , currently 02/27/2020 11/30/2020 Overview: 03/03/20-1hr GCT at NOB visit. Abelardo Ocampo APRN.CNM 02/27/2020Patient had gestational diabetes with her last . She will plan on doing a 1 hour glucose test at her new OB appointment. TKRN History of gestational diabetes mellitus 019 03/03/2020 Gestational diabetes mellitus, class A1 07/20/19 19 11/30/2020 Overview: 09/22/20 - LGA on growth US, [facility] recommends delivery at 39 weeks if remains LGA - Vincent Rubio MD 03/19/20-failed 3-hour GTT. History of GDM class A1 with last . 11/19/18 had 2hr GTT at [facility] and normal, lab scanned into chart. Reviewed GDM diagnosis with patient. She feels she is knowledgeable about diagnosis, testing, and diet. Declines consultation with health educator and digital media manager. She will check fasting blood sugars and 2-hour postprandials 3 times a day and bring to next visit.Abelardo Ocampo APRN.CNM Abnormal glucose complicating 07/17/19 19 10/23/2018 Overview: 07/16/18: 3hr GTT ordered. Paula Brenner MD documented as of this encounter (statuses as of 09/19/2022) [facility] History of Past illness Narrative* Problem Noted Date Resolved Date Supervision of high risk in third trim terrell 10/14/2020 11/30/2020 Excessive growth affec ting management of in third trimester 09/22/2020 11/30/2020 Overview: 10/16/20-Fetus is large for gestational age. EFW is 9 lb 12 oz (4426 g), which is at the 99th percentile. Abelrado Ocampo APRN.CNM 10/01/20- Fetus is large for gestational age with EFW of 7 lb 9 oz, which is at the 98th percentile at 35w3d US. Would recommend delivery at 39 weeks, if fetus remains large for gestational age. Per visit. Abelardo Ocampo APRN.CNM Abnormal glucose in , antepartum 201911/30/2020 Overview: 03/04/20-Elevated early 1hr GCT 154, 3hr GTT ordered. Abelardo Ocampo APRN.CNM Uterine size-date discrepancy, first trimester 1 11/30/2020 Overview: 03/03/20- LMP inconsistent with US, formal dating US in 2 weeks. Abelardo Ocampo APRN.CNM History of gestational diabe tammi in prior , currently 02/27/2020 11/30/2020 Overview: 03/03/20-1hr GCT at NOB visit. Abelardo Ocampo APRN.CNM 02/27/2020Patient had gestational diabetes with her last . She will plan on doing a 1 hour glucose test at her new OB appointment. TKRN History of gestational diabetes mellitus 019 03/03/2020 Gestational diabetes mellitus, class A1 07/20/19 19 11/30/2020 Overview: 09/22/20 - LGA on growth US, [facility] recommends delivery at 39 weeks if remains LGA - Vincent Rubio MD 03/19/20-failed 3-hour GTT. History of GDM class A1 with last . 11/19/18 had 2hr GTT at [facility] and normal, lab scanned into chart. Reviewed GDM diagnosis with patient. She feels she is knowledgeable about diagnosis, testing, and diet. Declines consultation with health educator and digital media manager. She will check fasting blood sugars and 2-hour postprandials 3 times a day and bring to next visit.Abelardo Ocampo APRN.CNM Abnormal glucose complicating 07/17/19 19 10/23/2018 Overview: 07/16/18: 3hr GTT ordered. Paula Brenner MD documented as of this encounter (statuses as of 10/24/2022) [facility] History of Past illness Narrative* Problem Noted Date Diagnosed Date Resolved Date Supervision of high risk pre gnancy in third trimester 10/14/2020 11/30/2020 Excessive growth affec ting management of in third trimester 09/22/2020 12/01/19 Overview: 10/16/20-Fetus is large for gestational age. EFW is 9 lb 12 oz (4426 g), which is at the 99th percentile. Abelardo Ocampo APRN.CNM 10/01/20- Fetus is large for gestational age with EFW of 7 lb 9 oz, which is at the 98th percentile at 35w3d US. Would recommend delivery at 39 weeks, if fetus remains large for gestational age. Per visit. Abelardo Ocampo APRN.CNM Abnormal glucose in , antepartum 03/04/2020 11/30/2020 Overview: 03/04/20-Elevated early 1hr GCT 154, 3hr GTT ordered. Abelardo Ocampo APRN.CNM Uterine size-date discrepanc y, first trimester 03/03/2020 11/30/2020 Overview: 03/03/20- LMP inconsistent with US, formal dating US in 2 weeks. Abelardo Ocampo APRN.CNM History of gestational diabe tammi in prior , currently 02/27/2020 11/30/2020 Overview: 03/03/20-1hr GCT at NOB visit. Abelardo Ocamop APRN.CNM 02/27/2020Patient had gestational diabetes with her last . She will plan on doing a 1 hour glucose test at her new OB appointment. TKRN History of gestational diabetes mellitus 10/23/2018 03/03/2020 Gestational diabetes mellitus, class A1 07/19/2018 11/30/2020 Overview: 09/22/20 - LGA on growth US, [facility] recommends delivery at 39 weeks if remains LGA - Vincent Rubio MD 03/19/20-failed 3-hour GTT. History of GDM class A1 with last . 11/19/18 had 2hr GTT at [facility] and normal, lab scanned into chart. Reviewed GDM diagnosis with patient. She feels she is knowledgeable about diagnosis, testing, and diet. Declines consultation with health educator and digital media manager. She will check fasting blood sugars and 2-hour postprandials 3 times a day and bring to next visit.Abelardo Ocampo APRN.CNM Abnormal glucose complicating 07/16/2018 10/23/2018 Overview: 07/16/18: 3hr GTT ordered. Paula Brenner MD documented as of this encounter (statuses as of 11/17/2022) [facility] History of Past illness Narrative* Problem Noted Date Diagnosed Date Resolved Date Supervision of high risk pre gnancy in third trimester 10/14/2020 11/30/2020 Excessive growth affec ting management of in third trimester 09/22/2020 12/01/19 Overview: 10/16/20-Fetus is large for gestational age. EFW is 9 lb 12 oz (4426 g), which is at the 99th percentile. Abelardo Ocampo APRN.CNM 10/01/20- Fetus is large for gestational age with EFW of 7 lb 9 oz, which is at the 98th percentile at 35w3d US. Would recommend delivery at 39 weeks, if fetus remains large for gestational age. Per visit. Abelardo Ocampo APRN.CNM Abnormal glucose in , antepartum 03/04/2020 11/30/2020 Overview: 03/04/20-Elevated early 1hr GCT 154, 3hr GTT ordered. Abelardo Ocampo APRN.CNM Uterine size-date discrepanc y, first trimester 03/03/2020 11/30/2020 Overview: 03/03/20- LMP inconsistent with US, formal dating US in 2 weeks. Abelardo Ocampo APRN.CNM History of gestational diabe tammi in prior , currently 02/27/2020 11/30/2020 Overview: 03/03/20-1hr GCT at NOB visit. Abelardo Ocampo APRN.CNM 02/27/2020Patient had gestational diabetes with her last . She will plan on doing a 1 hour glucose test at her new OB appointment. MCKENZIERN History of gestational diabetes mellitus 10/23/2018 03/03/2020 Gestational diabetes mellitus, class A1 07/19/2018 11/30/2020 Overview: 09/22/20 - LGA on growth US, [facility] recommends delivery at 39 weeks if remains LGA - Vincent Rubio MD 03/19/20-failed 3-hour GTT. History of GDM class A1 with last . 11/19/18 had 2hr GTT at [facility] and normal, lab scanned into chart. Reviewed GDM diagnosis with patient. She feels she is knowledgeable about diagnosis, testing, and diet. Declines consultation with health educator and digital media manager. She will check fasting blood sugars and 2-hour postprandials 3 times a day and bring to next visit.Abelardo Ocampo APRN.CNM documented as of this encounter (statuses as of 12/01/2022) [facility] History of Past illness Narrative* Problem Noted Date Diagnosed Date Resolved Date Supervision of high risk pre gnancy in third trimester 10/14/2020 11/30/2020 Excessive growth affec ting management of in third trimester 09/22/2020 12/01/19 Overview: 10/16/20-Fetus is large for gestational age. EFW is 9 lb 12 oz (4426 g), which is at the 99th percentile. Abelardo Ocampo APRN.CNM 10/01/20- Fetus is large for gestational age with EFW of 7 lb 9 oz, which is at the 98th percentile at 35w3d US. Would recommend delivery at 39 weeks, if fetus remains large for gestational age. Per visit. Abelardo Ocampo APRN.CNM Abnormal glucose in , antepartum 03/04/2020 11/30/2020 Overview: 03/04/20-Elevated early 1hr GCT 154, 3hr GTT ordered. Abelardo Ocampo APRN.CNM Uterine size-date discrepanc y, first trimester 03/03/2020 11/30/2020 Overview: 03/03/20- LMP inconsistent with US, formal dating US in 2 weeks. Abelardo Ocampo APRN.CNM History of gestational diabe tammi in prior , currently 02/27/2020 11/30/2020 Overview: 03/03/20-1hr GCT at NOB visit. Abelardo Ocampo APRN.CNM 02/27/2020Patient had gestational diabetes with her last . She will plan on doing a 1 hour glucose test at her new OB appointment. TKRN History of gestational diabetes mellitus 10/23/2018 03/03/2020 Gestational diabetes mellitus, class A1 07/19/2018 11/30/2020 Overview: 09/22/20 - LGA on growth US, [facility] recommends delivery at 39 weeks if remains LGA - Vincent Rubio MD 03/19/20-failed 3-hour GTT. History of GDM class A1 with last . 11/19/18 had 2hr GTT at [facility] and normal, lab scanned into chart. Reviewed GDM diagnosis with patient. She feels she is knowledgeable about diagnosis, testing, and diet. Declines consultation with health educator and digital media manager. She will check fasting blood sugars and 2-hour postprandials 3 times a day and bring to next visit.Abelardo Ocampo APRN.CNM documented as of this encounter (statuses as of 12/02/2022) [facility] History of Past illness Narrative* Problem Noted Date Diagnosed Date Resolved Date Supervision of high risk pre gnancy in third trimester 10/14/2020 11/30/2020 Excessive growth affec ting management of in third trimester 09/22/2020 12/01/19 Overview: 10/16/20-Fetus is large for gestational age. EFW is 9 lb 12 oz (4426 g), which is at the 99th percentile. Abelardo Ocampo APRN.CNM 10/01/20- Fetus is large for gestational age with EFW of 7 lb 9 oz, which is at the 98th percentile at 35w3d US. Would recommend delivery at 39 weeks, if fetus remains large for gestational age. Per visit. Abelardo Ocampo APRN.CNM Abnormal glucose in , antepartum 03/04/2020 11/30/2020 Overview: 03/04/20-Elevated early 1hr GCT 154, 3hr GTT ordered. Abelardo Ocampo APRN.CNM Uterine size-date discrepanc y, first trimester 03/03/2020 11/30/2020 Overview: 03/03/20- LMP inconsistent with US, formal dating US in 2 weeks. Abelardo Ocampo APRN.CNM History of gestational diabe tammi in prior , currently 02/27/2020 11/30/2020 Overview: 03/03/20-1hr GCT at NOB visit. Abelardo Ocampo APRN.CNM 02/27/2020Patient had gestational diabetes with her last . She will plan on doing a 1 hour glucose test at her new OB appointment. TKRN History of gestational diabetes mellitus 10/23/2018 03/03/2020 Gestational diabetes mellitus, class A1 07/19/2018 11/30/2020 Overview: 09/22/20 - LGA on growth US, [facility] recommends delivery at 39 weeks if remains LGA - Vincent Rubio MD 03/19/20-failed 3-hour GTT. History of GDM class A1 with last . 11/19/18 had 2hr GTT at [facility] and normal, lab scanned into chart. Reviewed GDM diagnosis with patient. She feels she is knowledgeable about diagnosis, testing, and diet. Declines consultation with health educator and digital media manager. She will check fasting blood sugars and 2-hour postprandials 3 times a day and bring to next visit.Abelardo Ocampo APRN.CNM documented as of this encounter (statuses as of 12/08/2022) [facility] History of Past illness Narrative* Problem Noted Date Diagnosed Date Resolved Date Supervision of high risk pre gnancy in third trimester 10/14/2020 11/30/2020 Excessive growth affec ting management of in third trimester 09/22/2020 12/01/19 Overview: 10/16/20-Fetus is large for gestational age. EFW is 9 lb 12 oz (4426 g), which is at the 99th percentile. Abelardo Ocampo APRN.CNM 10/01/20- Fetus is large for gestational age with EFW of 7 lb 9 oz, which is at the 98th percentile at 35w3d US. Would recommend delivery at 39 weeks, if fetus remains large for gestational age. Per visit. Abelardo Ocampo APRN.CNM Abnormal glucose in , antepartum 03/04/2020 11/30/2020 Overview: 03/04/20-Elevated early 1hr GCT 154, 3hr GTT ordered. Abelardo Ocampo APRN.CNM Uterine size-date discrepanc y, first trimester 03/03/2020 11/30/2020 Overview: 03/03/20- LMP inconsistent with US, formal dating US in 2 weeks. Abelardo Ocampo APRN.CNM History of gestational diabe tammi in prior , currently 02/27/2020 11/30/2020 Overview: 03/03/20-1hr GCT at NOB visit. Abelardo Ocamop APRN.CNM 02/27/2020Patient had gestational diabetes with her last . She will plan on doing a 1 hour glucose test at her new OB appointment. TKRN History of gestational diabetes mellitus 10/23/2018 03/03/2020 Gestational diabetes mellitus, class A1 07/19/2018 11/30/2020 Overview: 09/22/20 - LGA on growth US, [facility] recommends delivery at 39 weeks if remains LGA - Vincent Rubio MD 03/19/20-failed 3-hour GTT. History of GDM class A1 with last . 11/19/18 had 2hr GTT at [facility] and normal, lab scanned into chart. Reviewed GDM diagnosis with patient. She feels she is knowledgeable about diagnosis, testing, and diet. Declines consultation with health educator and digital media manager. She will check fasting blood sugars and 2-hour postprandials 3 times a day and bring to next visit.Abelardo Ocampo APRN.CNM documented as of this encounter (statuses as of 12/19/2022) [facility] History of Past illness Narrative* Problem Noted Date Diagnosed Date Resolved Date Supervision of high risk pre gnancy in third trimester 10/14/2020 11/30/2020 Excessive growth affec ting management of in third trimester 09/22/2020 12/01/19 Overview: 10/16/20-Fetus is large for gestational age. EFW is 9 lb 12 oz (4426 g), which is at the 99th percentile. Abelardo Ocampo APRN.CNM 10/01/20- Fetus is large for gestational age with EFW of 7 lb 9 oz, which is at the 98th percentile at 35w3d US. Would recommend delivery at 39 weeks, if fetus remains large for gestational age. Per visit. Abelardo Ocampo APRN.CNM Abnormal glucose in , antepartum 03/04/2020 11/30/2020 Overview: 03/04/20-Elevated early 1hr GCT 154, 3hr GTT ordered. Abelardo Ocampo APRN.CNM Uterine size-date discrepanc y, first trimester 03/03/2020 11/30/2020 Overview: 03/03/20- LMP inconsistent with US, formal dating US in 2 weeks. Abelardo Ocampo APRN.CNM History of gestational diabe tammi in prior , currently 02/27/2020 11/30/2020 Overview: 03/03/20-1hr GCT at NOB visit. Abelardo Ocampo APRN.CNM 02/27/2020Patient had gestational diabetes with her last . She will plan on doing a 1 hour glucose test at her new OB appointment. TKRN History of gestational diabetes mellitus 10/23/2018 03/03/2020 Gestational diabetes mellitus, class A1 07/19/2018 11/30/2020 Overview: 09/22/20 - LGA on growth US, [facility] recommends delivery at 39 weeks if remains LGA - Vincent Rubio MD 03/19/20-failed 3-hour GTT. History of GDM class A1 with last . 11/19/18 had 2hr GTT at [facility] and normal, lab scanned into chart. Reviewed GDM diagnosis with patient. She feels she is knowledgeable about diagnosis, testing, and diet. Declines consultation with health educator and digital media manager. She will check fasting blood sugars and 2-hour postprandials 3 times a day and bring to next visit.Abelardo Ocampo APRN.CNM documented as of this encounter (statuses as of 01/04/2023) [facility] History of Past illness Narrative* Problem Noted Date Diagnosed Date Resolved Date Supervision of high risk pre gnancy in third trimester 10/14/2020 11/30/2020 Excessive growth affec ting management of in third trimester 09/22/2020 12/01/19 Overview: 10/16/20-Fetus is large for gestational age. EFW is 9 lb 12 oz (4426 g), which is at the 99th percentile. Abelardo Ocampo APRN.CNM 10/01/20- Fetus is large for gestational age with EFW of 7 lb 9 oz, which is at the 98th percentile at 35w3d US. Would recommend delivery at 39 weeks, if fetus remains large for gestational age. Per visit. Abelardo Ocampo APRN.CNM Abnormal glucose in , antepartum 03/04/2020 11/30/2020 Overview: 03/04/20-Elevated early 1hr GCT 154, 3hr GTT ordered. Abelardo Ocampo APRN.CNM Uterine size-date discrepanc y, first trimester 03/03/2020 11/30/2020 Overview: 03/03/20- LMP inconsistent with US, formal dating US in 2 weeks. Abelardo Ocampo APRN.CNM History of gestational diabe tammi in prior , currently 02/27/2020 11/30/2020 Overview: 03/03/20-1hr GCT at NOB visit. Abelardo Ocampo APRN.CNM 02/27/2020Patient had gestational diabetes with her last . She will plan on doing a 1 hour glucose test at her new OB appointment. TKRN History of gestational diabetes mellitus 10/23/2018 03/03/2020 Gestational diabetes mellitus, class A1 07/19/2018 11/30/2020 Overview: 09/22/20 - LGA on growth US, [facility] recommends delivery at 39 weeks if remains LGA - Vincent Rubio MD 03/19/20-failed 3-hour GTT. History of GDM class A1 with last . 11/19/18 had 2hr GTT at [facility] and normal, lab scanned into chart. Reviewed GDM diagnosis with patient. She feels she is knowledgeable about diagnosis, testing, and diet. Declines consultation with health educator and digital media manager. She will check fasting blood sugars and 2-hour postprandials 3 times a day and bring to next visit.Abelardo Ocampo APRN.CNM documented as of this encounter (statuses as of 01/20/2023) [facility] History of Past illness Narrative* Problem Noted Date Diagnosed Date Resolved Date Supervision of high risk pre gnancy in third trimester 10/14/2020 11/30/2020 Excessive growth affec ting management of in third trimester 09/22/2020 12/01/19 Overview: 10/16/20-Fetus is large for gestational age. EFW is 9 lb 12 oz (4426 g), which is at the 99th percentile. Abelardo Ocampo APRN.CNM 10/01/20- Fetus is large for gestational age with EFW of 7 lb 9 oz, which is at the 98th percentile at 35w3d US. Would recommend delivery at 39 weeks, if fetus remains large for gestational age. Per visit. Abelardo Ocampo APRN.CNM Abnormal glucose in , antepartum 03/04/2020 11/30/2020 Overview: 03/04/20-Elevated early 1hr GCT 154, 3hr GTT ordered. Abelardo Ocampo APRN.CNM Uterine size-date discrepanc y, first trimester 03/03/2020 11/30/2020 Overview: 03/03/20- LMP inconsistent with US, formal dating US in 2 weeks. Abelardo Ocampo APRN.CNM History of gestational diabe tammi in prior , currently 02/27/2020 11/30/2020 Overview: 03/03/20-1hr GCT at NOB visit. Abelardo Ocampo APRN.CNM 02/27/2020Patient had gestational diabetes with her last . She will plan on doing a 1 hour glucose test at her new OB appointment. TKRN History of gestational diabetes mellitus 10/23/2018 03/03/2020 Gestational diabetes mellitus, class A1 07/19/2018 11/30/2020 Overview: 09/22/20 - LGA on growth US, [facility] recommends delivery at 39 weeks if remains LGA - Vincent Rubio MD 03/19/20-failed 3-hour GTT. History of GDM class A1 with last . 11/19/18 had 2hr GTT at [facility] and normal, lab scanned into chart. Reviewed GDM diagnosis with patient. She feels she is knowledgeable about diagnosis, testing, and diet. Declines consultation with health educator and digital media manager. She will check fasting blood sugars and 2-hour postprandials 3 times a day and bring to next visit.Abelardo Ocampo APRN.CNM documented as of this encounter (statuses as of 02/03/2023) [facility] History of Past illness Narrative* Problem Noted Date Diagnosed Date Resolved Date Supervision of high risk pre gnancy in third trimester 10/14/2020 11/30/2020 Excessive growth affec ting management of in third trimester 09/22/2020 12/01/19 Overview: 10/16/20-Fetus is large for gestational age. EFW is 9 lb 12 oz (4426 g), which is at the 99th percentile. Abelardo Ocampo APRN.CNM 10/01/20- Fetus is large for gestational age with EFW of 7 lb 9 oz, which is at the 98th percentile at 35w3d US. Would recommend delivery at 39 weeks, if fetus remains large for gestational age. Per visit. Abelardo Ocampo APRN.CNM Abnormal glucose in , antepartum 03/04/2020 11/30/2020 Overview: 03/04/20-Elevated early 1hr GCT 154, 3hr GTT ordered. Abelardo Ocampo APRN.CNM Uterine size-date discrepanc y, first trimester 03/03/2020 11/30/2020 Overview: 03/03/20- LMP inconsistent with US, formal dating US in 2 weeks. Abelardo Ocampo APRN.CNM History of gestational diabe tammi in prior , currently 02/27/2020 11/30/2020 Overview: 03/03/20-1hr GCT at NOB visit. Abelardo Ocampo APRN.CNM 02/27/2020Patient had gestational diabetes with her last . She will plan on doing a 1 hour glucose test at her new OB appointment. TKRN History of gestational diabetes mellitus 10/23/2018 03/03/2020 Gestational diabetes mellitus, class A1 07/19/2018 11/30/2020 Overview: 09/22/20 - LGA on growth US, [facility] recommends delivery at 39 weeks if remains LGA - Vincent Rubio MD 03/19/20-failed 3-hour GTT. History of GDM class A1 with last . 11/19/18 had 2hr GTT at [facility] and normal, lab scanned into chart. Reviewed GDM diagnosis with patient. She feels she is knowledgeable about diagnosis, testing, and diet. Declines consultation with health educator and digital media manager. She will check fasting blood sugars and 2-hour postprandials 3 times a day and bring to next visit.Abelardo Ocampo APRN.CNM documented as of this encounter (statuses as of 02/07/2023) [facility] History of Past illness Narrative* Problem Noted Date Diagnosed Date Resolved Date Supervision of high risk pre gnancy in third trimester 10/14/2020 11/30/2020 Excessive growth affec ting management of in third trimester 09/22/2020 12/01/19 Overview: 10/16/20-Fetus is large for gestational age. EFW is 9 lb 12 oz (4426 g), which is at the 99th percentile. Abelardo Ocampo APRN.CNM 10/01/20- Fetus is large for gestational age with EFW of 7 lb 9 oz, which is at the 98th percentile at 35w3d US. Would recommend delivery at 39 weeks, if fetus remains large for gestational age. Per visit. Abelardo Ocampo APRN.CNM Abnormal glucose in , antepartum 03/04/2020 11/30/2020 Overview: 03/04/20-Elevated early 1hr GCT 154, 3hr GTT ordered. Abelardo Ocampo APRN.CNM Uterine size-date discrepanc y, first trimester 03/03/2020 11/30/2020 Overview: 03/03/20- LMP inconsistent with US, formal dating US in 2 weeks. Abelardo Ocampo APRN.CNM History of gestational diabe tammi in prior , currently 02/27/2020 11/30/2020 Overview: 03/03/20-1hr GCT at [facility] visit. Abelardo Ocampo APRN.CNM 02/27/2020Patient had gestational diabetes with her last . She will plan on doing a 1 hour glucose test at her new OB appointment. TKRN History of gestational diabetes mellitus 10/23/2018 03/03/2020 Gestational diabetes mellitus, class A1 07/19/2018 11/30/2020 Overview: 09/22/20 - LGA on growth US, [facility] recommends delivery at 39 weeks if remains LGA - Vincent Rubio MD 03/19/20-failed 3-hour GTT. History of GDM class A1 with last . 11/19/18 had 2hr GTT at [facility] and normal, lab scanned into chart. Reviewed GDM diagnosis with patient. She feels she is knowledgeable about diagnosis, testing, and diet. Declines consultation with health educator and digital media manager. She will check fasting blood sugars and 2-hour postprandials 3 times a day and bring to next visit.Abelardo Ocampo APRN.CNM documented as of this encounter (statuses as of 02/07/2023) [facility] History of Past illness Narrative* Problem Noted Date Diagnosed Date Resolved Date Supervision of high risk pre gnancy in third trimester 10/14/2020 11/30/2020 Excessive growth affec ting management of in third trimester 09/22/2020 12/01/19 21 Overview: 10/16/20-Fetus is large for gestational age. EFW is 9 lb 12 oz (4426 g), which is at the 99th percentile. Abelardo Ocampo APRN.CNM 10/01/20- Fetus is large for gestational age with EFW of 7 lb 9 oz, which is at the 98th percentile at 35w3d US. Would recommend delivery at 39 weeks, if fetus remains large for gestational age. Per visit. Abelardo Ocampo APRN.CNM Abnormal glucose in , antepartum 03/04/2020 11/30/2020 Overview: 03/04/20-Elevated early 1hr GCT 154, 3hr GTT ordered. Abelardo Ocampo APRN.CNM Uterine size-date discrepanc y, first trimester 03/03/2020 11/30/2020 Overview: 03/03/20- LMP inconsistent with US, formal dating US in 2 weeks. Abelardo Ocampo APRN.CNM History of gestational diabe tammi in prior , currently 02/27/2020 11/30/2020 Overview: 03/03/20-1hr GCT at [facility] visit. Abelardo Ocampo APRN.CNM 02/27/2020Patient had gestational diabetes with her last . She will plan on doing a 1 hour glucose test at her new OB appointment. TKRN History of gestational diabetes mellitus 10/23/2018 03/03/2020 Gestational diabetes mellitus, class A1 07/19/2018 11/30/2020 Overview: 09/22/20 - LGA on growth US, [facility] recommends delivery at 39 weeks if remains LGA - Vincent Rubio MD 03/19/20-failed 3-hour GTT. History of GDM class A1 with last . 11/19/18 had 2hr GTT at [facility] and normal, lab scanned into chart. Reviewed GDM diagnosis with patient. She feels she is knowledgeable about diagnosis, testing, and diet. Declines consultation with health educator and digital media manager. She will check fasting blood sugars and 2-hour postprandials 3 times a day and bring to next visit.Abelardo Ocampo APRN.CNM documented as of this encounter (statuses as of 02/14/2023) [facility] History of Past illness Narrative* Problem Noted Date Diagnosed Date Resolved Date Supervision of high risk pre gnancy in third trimester 10/14/2020 11/30/2020 Excessive growth affec ting management of in third trimester 09/22/2020 12/01/19 21 Overview: 10/16/20-Fetus is large for gestational age. EFW is 9 lb 12 oz (4426 g), which is at the 99th percentile. Abelardo Ocampo APRN.CNM 10/01/20- Fetus is large for gestational age with EFW of 7 lb 9 oz, which is at the 98th percentile at 35w3d US. Would recommend delivery at 39 weeks, if fetus remains large for gestational age. Per visit. Abelardo Ocampo APRN.CNM Abnormal glucose in , antepartum 03/04/2020 11/30/2020 Overview: 03/04/20-Elevated early 1hr GCT 154, 3hr GTT ordered. Abelardo Ocampo APRN.CNM Uterine size-date discrepanc y, first trimester 03/03/2020 11/30/2020 Overview: 03/03/20- LMP inconsistent with US, formal dating US in 2 weeks. Abelardo Ocampo APRN.CNM History of gestational diabe tammi in prior , currently 02/27/2020 11/30/2020 Overview: 03/03/20-1hr GCT at [facility] visit. Abelardo Ocampo APRN.CNM 02/27/2020Patient had gestational diabetes with her last . She will plan on doing a 1 hour glucose test at her new OB appointment. TKRN History of gestational diabetes mellitus 10/23/2018 03/03/2020 Gestational diabetes mellitus, class A1 07/19/2018 11/30/2020 Overview: 09/22/20 - LGA on growth US, [facility] recommends delivery at 39 weeks if remains LGA - Vincent Rubio MD 03/19/20-failed 3-hour GTT. History of GDM class A1 with last . 11/19/18 had 2hr GTT at [facility] and normal, lab scanned into chart. Reviewed GDM diagnosis with patient. She feels she is knowledgeable about diagnosis, testing, and diet. Declines consultation with health educator and digital media manager. She will check fasting blood sugars and 2-hour postprandials 3 times a day and bring to next visit.Abelardo Ocampo APRN.CNM documented as of this encounter (statuses as of 02/16/2023) [facility] Diagnosis Encounter for gynecological examination (general) (routine) without abnormal findings- Primary Diastasis recti Diastasis of muscle control counseling General counseling for initiation of other contraceptive measures Evaluation for contraception barrier or spermicide General counseling for initiation of other contraceptive measures [facility] Diagnosis 7 weeks gestation of - Primary state, incidental History of gestational diabetes mellitus Personal history of gestational diabetes History of macrosomia in in prior , currently with other poor obstetric history [facility] Diagnosis with uncertain dates in first trimester- Primary [facility] Diagnosis 7 weeks gestation of state, incidental [facility]* Diagnosis 11 weeks gestation of - Primary state, incidental Advanced maternal age in multigravida, first trimester [facility]* Diagnosis 17 weeks gestation of - Primary state, incidental [facility]* Diagnosis 22 weeks gestation of - Primary state, incidental [facility]* Diagnosis Elevated glucose- Primary Other abnormal glucose [facility]* Diagnosis 30 weeks gestation of - Primary state, incidental [facility]* Diagnosis Multigravida of advanced maternal age in third trimester- Primary Gestational diabetes mellitus, class A1 Abnormal maternal glucose tolerance, complicating , childbirth, or the puerperium, unspecified as to episode of care 32 weeks gestation of state, incidental [facility]* Diagnosis 35 weeks gestation of - Primary state, incidental Multigravida of advanced maternal age in third trimester Gestational diabetes mellitus, class A1 Abnormal maternal glucose tolerance, complicating , childbirth, or the puerperium, unspecified as to episode of care documented in this encounter [facility] note* Diagnosis GDM, class A2- Primary Abnormal maternal glucose tolerance, complicating , childbirth, or the puerperium, unspecified as to episode of care [facility]* Diagnosis GDM, class A2- Primary Abnormal maternal glucose tolerance, complicating , childbirth, or the puerperium, unspecified as to episode of care Multigravida of advanced maternal age in third trimester 37 weeks gestation of state, incidental [facility]* Diagnosis GDM, class A2- Primary Abnormal maternal glucose tolerance, complicating , childbirth, or the puerperium, unspecified as to episode of care Multigravida of advanced maternal age in third trimester 38 weeks gestation of state, incidental [facility]* Diagnosis care and examination- Primary Routine follow-up History of gestational diabetes Personal history of gestational diabetes documented in this encounter [facility] for referral (narrative)* Diagnostic Procedure Only (Routine) - Authorized Specialty Diagnoses / Procedures Referred By Edward salter Referred To Contact [facility] Diagnoses 7 weeks gestation of Procedures OBSTETRIC ULTRASOUND WHI US PREG UTERUS AFTER 1ST TRIMEST 1 GESTATION Abelardo Ocampo APRN.TRACY [address] [place] [address] [facility] [address] [place] [address] Referral ID Status Reason Start Date Expiration Date Visits Requested Visits Authorized [id number] Authorized Auto-Generat ed Referral 07/20/2022 07/20/2023 1 1 [facility] for referral (narrative)* Diagnostic Procedure Only (Routine) - Authorized Specialty Diagnoses / Procedures Referred By Contac t Referred To Contact [facility] Diagnoses 11 weeks gestation of Advanced maternal age in multigravida, first trimester Procedures OBSTETRIC ULTRASOUND WHI US PREG UTERUS AFTER 1ST TRIMEST GESTATION Abelardo Ocampo APRN.CNM [address] [place] [address] [address] Referral ID Status Reason Start Date Expiration Date Visits Requested Visits Authorized [id number] Authorized Auto-Generat ed Referral 08/17/2022 08/17/2023 1 1 [facility] for referral (narrative)* Diagnostic Procedure Only (Routine) - Authorized Specialty Diagnoses / Procedures Referred By Contac t Referred To Contact [facility] Diagnoses 32 weeks gestation of Multigravida of advanced maternal age in third trimester Gestational diabetes mellitus, class A1 Procedures OBSTETRIC ULTRASOUND WHI US PREG UTERUS AFTER 1ST TRIMEST GESTATION Paula Contreras MD [address] [place] [address] [address] Referral ID Status Reason Start Date Expiration Date Visits Requested Visits Authorized [id number] Authorized Auto-Generat ed Referral 01/03/2023 01/03/2024 1 1 [facility] for visit Narrative* Diagnostic Procedure Only (Routine) - Closed Specialty Diagnoses / Procedures Referred By Contac t Referred To Contact [facility] Diagnoses 7 weeks gestation of Procedures OBSTETRIC ULTRASOUND WHI US PREG UTERUS AFTER 1ST TRIMEST GESTATION Abelardo Ocampo APRN.CNM [address] [place] [address] [facility] [address] [place] [address] Referral ID Status Reason Start Date Expiration Date V isits Requested Visits Authorized [id number] Closed Auto-Generate d Referral 07/20/2022 07/20/2023 1 1 [facility] Reason for Referral Specialty Diagnoses / Procedures Referred By Edward salter Referred To Contact [facility] Diagnoses Diastasis recti Procedures CONSULT TO PHYSICAL THERAPY PHYSICAL THERAPY EVALUATION HIGH COMPLEX 45 MINS Abelardo Ocampo APRN.CNM [address] [place] [address] [facility] [address] [address] Referral ID Status Reason Start Date Expiration Date Visits Requested Visits Authorized [id number] Pending Review Auto-Generat ed Referral 2 03/28/2023 1 1 Specialty Diagnoses / Procedures Referred By Edward salter Referred To Contact Diagnoses History of gestational diabetes Procedures CONSULT TO PREVENTIVE CARD OFFICE/OUTPATIENT NEW [facility] MDM 60-74 MINUTES Abelardo Ocampo APRN.CNM [address] [place] [address] Referral ID Status Reason Start Date Expiration Date Visits Requested Visits Authorized [id number] Authorized PCP Requested Referral 3 04/01/2023 1 1 [facility] Problem Noted Date OB Reminders 07/20/2022 Problem Noted Date OB Reminders 07/20/2022 Problem Noted Date OB Reminders 07/20/2022 Problem Noted Date OB Reminders 07/20/2022 Problem Noted Date OB Reminders 07/20/2022 Problem Noted Date OB Reminders 07/20/2022 Problem Noted Date Diagnosed Date OB Reminders 07/20/2022 Problem Noted Date Diagnosed Date OB Reminders 07/20/2022 Problem Noted Date Diagnosed Date OB Reminders 07/20/2022 Problem Noted Date Diagnosed Date OB Reminders 07/20/2022 Problem Noted Date Diagnosed Date OB Reminders 07/20/2022 Problem Noted Date Diagnosed Date OB Reminders 07/20/2022 Problem Noted Date Diagnosed Date OB Reminders 07/20/2022 Problem Noted Date Diagnosed Date OB Reminders 07/20/2022 Problem Noted Date Diagnosed Date OB Reminders 07/20/2022 Problem Noted Date Diagnosed Date OB Reminders 07/20/2022 Summary Purpose Family History No Family History Records Found Advance Directives No Advanced Directives Records Found Additional Source Comments Source Comments (unrecognize d section and content) In the event this informatio n is protected by the Federal Confidentiality of Alcohol and Drug Abuse Patient Records regulations: The Federal rules restrict any use of the information to criminally investigate or prosecute any alcohol or drug abuse patient.[facility] event this information is protected by the Federal Confidentiality of Alcohol and Drug Abuse Patient Records regulations: The Federal rules restrict any use of the information to criminally investigate or prosecute any alcohol or drug abuse patient.[facility] the event this information is protected by the Federal Confidentiality of Alcohol and Drug Abuse Patient Records regulations: The Federal rules restrict any use of the information to criminally investigate or prosecute any alcohol or drug abuse patient.[facility] the event this information is protected by the Federal Confidentiality of Alcohol and Drug Abuse Patient Records regulations: The Federal rules restrict any use of the information to criminally investigate or prosecute any alcohol or drug abuse patient.[facility] the event this information is protected by the Federal Confidentiality of Alcohol and Drug Abuse Patient Records regulations: The Federal rules restrict any use of the information to criminally investigate or prosecute any alcohol or drug abuse patient.[facility] the event this information is protected by the Federal Confidentiality of Alcohol and Drug Abuse Patient Records regulations: The Federal rules restrict any use of the information to criminally investigate or prosecute any alcohol or drug abuse patient.[facility] the event this information is protected by the Federal Confidentiality of Alcohol and Drug Abuse Patient Records regulations: The Federal rules restrict any use of the information to criminally investigate or prosecute any alcohol or drug abuse patient.[facility] the event this information is protected by the Federal Confidentiality of Alcohol and Drug Abuse Patient Records regulations: The Federal rules restrict any use of the information to criminally investigate or prosecute any alcohol or drug abuse patient.[facility] the event this information is protected by the Federal Confidentiality of Alcohol and Drug Abuse Patient Records regulations: The Federal rules restrict any use of the information to criminally investigate or prosecute any alcohol or drug abuse patient.[facility] the event this information is protected by the Federal Confidentiality of Alcohol and Drug Abuse Patient Records regulations: The Federal rules restrict any use of the information to criminally investigate or prosecute any alcohol or drug abuse patient.[facility] the event this information is protected by the Federal Confidentiality of Alcohol and Drug Abuse Patient Records regulations: The Federal rules restrict any use of the information to criminally investigate or prosecute any alcohol or drug abuse patient.[facility] the event this information is protected by the Federal Confidentiality of Alcohol and Drug Abuse Patient Records regulations: The Federal rules restrict any use of the information to criminally investigate or prosecute any alcohol or drug abuse patient.[facility] the event this information is protected by the Federal Confidentiality of Alcohol and Drug Abuse Patient Records regulations: The Federal rules restrict any use of the information to criminally investigate or prosecute any alcohol or drug abuse patient.[facility] the event this information is protected by the Federal Confidentiality of Alcohol and Drug Abuse Patient Records regulations: The Federal rules restrict any use of the information to criminally investigate or prosecute any alcohol or drug abuse patient.[facility] the event this information is protected by the Federal Confidentiality of Alcohol and Drug Abuse Patient Records regulations: The Federal rules restrict any use of the information to criminally investigate or prosecute any alcohol or drug abuse patient.[facility] Hospital[facility] the event this information is protected by the Federal Confidentiality of Alcohol and Drug Abuse Patient Records regulations: The Federal rules restrict any use of the information to criminally investigate or prosecute any alcohol or drug abuse patient.[facility] Hospital[facility] the event this information is protected by the Federal Confidentiality of Alcohol and Drug Abuse Patient Records regulations: The Federal rules restrict any use of the information to criminally investigate or prosecute any alcohol or drug abuse patient.[facility] Hospital[facility] the event this information is protected by the Federal Confidentiality of Alcohol and Drug Abuse Patient Records regulations: The Federal rules restrict any use of the information to criminally investigate or prosecute any alcohol or drug abuse patient.[facility] Hospital[facility] the event this information is protected by the Federal Confidentiality of Alcohol and Drug Abuse Patient Records regulations: The Federal rules restrict any use of the information to criminally investigate or prosecute any alcohol or drug abuse patient.[facility] Hospital[facility] the event this information is protected by the Federal Confidentiality of Alcohol and Drug Abuse Patient Records regulations: The Federal rules restrict any use of the information to criminally investigate or prosecute any alcohol or drug abuse patient.[facility] Hospital[facility] the event this information is protected by the Federal Confidentiality of Alcohol and Drug Abuse Patient Records regulations: The Federal rules restrict any use of the information to criminally investigate or prosecute any alcohol or drug abuse patient.[facility] Reason for Visit (unrecogniz ed section and content) Referral ID Status Reason Start Date Expiration Date Visits Re quested Visits Authorized [id number] Closed 03/25/2022 05/07/2022 1 1 Reason Comments Care Reason Comments SCARFER Ultrasound Reason Onset Date Comments Care 08/17/2022 Reason Onset Date Comments Care 09/19/2022 Reason Onset Date Comments Care 10/24/2022 Reason Comments OB Bee Sting Reason Comments Results Reason Onset Date Comments Care 12/19/2022 Reason Onset Date Comments Care 01/03/2023 Reason Onset Date Comments Care 01/20/2023 Reason Comments Patient Update Reason Comments US Specialty Diagnoses / Procedures Referred By Contac t Referred To Contact [facility] Diagnoses Multigravida of advanced maternal age in third trimester GDM, class A2 Procedures BIOPHYSICAL PROFILE US [facility] BIOPHYSICAL PROFILE NON-STRESS TESTING Mariam Coyle APRN.CNGloria [address] [place] [address] [facility] [address] [place] [address] Referral ID Status Reason Start Date Expiration Date Visits Requested Visits Authorized [id number] Authorized Auto-Generat ed Referral 02/06/2023 05/07/2023 10 10 Reason Comments Ob Delivery Note Reason Comments Routine Care Teams (unrecognized sec tion and content) Inspector Final Assembly Electrical Relationship Specialty Start Date End Date Del Solis MD PCP - General 03/18/09 Inspector Final Assembly Electrical Relationship Specialty Start Date End Date Del Solis MD PCP - General 03/18/09 Inspector Final Assembly Electrical Relationship Specialty Start Date End Date Del Solis MD PCP - General 03/18/09 Inspector Final Assembly Electrical Relationship Specialty Start Date End Date Del Solis MD PCP - General 03/18/09 Inspector Final Assembly Electrical Relationship Specialty Start Date End Date Del Solis MD PCP - General 03/18/09 Inspector Final Assembly Electrical Relationship Specialty Start Date End Date Del Solis MD PCP - General 03/18/09 Inspector Final Assembly Electrical Relationship Specialty Start Date End Date Del Solis MD PCP - General 03/18/09 Inspector Final Assembly Electrical Relationship Specialty Start Date End Date Del Solis MD PCP - General 03/18/09 Inspector Final Assembly Electrical Relationship Specialty Start Date End Date Del Solis MD PCP - General 03/18/09 Inspector Final Assembly Electrical Relationship Specialty Start Date End Date Del Solis MD PCP - General 03/18/09 Inspector Final Assembly Electrical Relationship Specialty Start Date End Date Del Solis MD PCP - General 03/18/09 Inspector Final Assembly Electrical Relationship Specialty Start Date End Date Del Solis MD PCP - General 03/18/09 Inspector Final Assembly Electrical Relationship Specialty Start Date End Date Del Solis MD PCP - General 03/18/09 Inspector Final Assembly Electrical Relationship Specialty Start Date End Date Del Solis MD PCP - General 03/18/09 Inspector Final Assembly Electrical Relationship Specialty Start Date End Date Del Solis MD PCP - General 03/18/09 Inspector Final Assembly Electrical Relationship Specialty Start Date End Date Del Hernandez MD [address] [place] [address] PCP - General Family Medicine 02/13/23 Inspector Final Assembly Electrical Relationship Specialty Start Date End Date Del Hernandez MD [address] [place] [address] PCP - General Family Medicine 02/13/23 Inspector Final Assembly Electrical Relationship Specialty Start Date End Date Del Hernandez MD [address] [place] [address] PCP - General Family Medicine 02/13/23 INFORMATION SOURCE (unrecogn ized section and content) FOR RECORDS PERTAINING TO PATIENTS WHO ARE OR HAVE BEEN ENROLLED IN A CHEMICAL DEPENDENCY/SUBSTANCEABUSE PROGRAM, SOME INFORMATION MAY BE OMITTED. This clinical summary was aggregated from multiple sources. Caution should be exercised in using it in the provision of clinical care. This summary normalizes information from multiple sources, and as a consequence, information in this document may materially change the coding, format and clinical context of patient data. In addition, data may be omitted in some cases. CLINICAL DECISIONS SHOULD BE BASED ON THE PRIMARY CLINICAL RECORDS. [facility] provides no warranty or guarantee of the accuracy or completeness of information in this document.
[2023-05-26 18:00] LABS: Vitamin B12 715 pg/mL (211-911); Vitamin D,25 Hydroxy 42.6 ng/mL
[2023-05-26 18:09] LABS: ALB/GLOB Ratio 1.1 RATIO (0.9-2.4); AST(SGOT) 21 U/L (15-37); Alanine Aminotransfer ALT/SGPT 30 U/L (13-56); Alkaline Phosphatase 92 U/L (45-117); Anion Gap 6 (5-15); BUN 20 mg/dL (7-18); BUN/Creat Ratio 29.5 RATIO (10-20); Calcium,Total 9.3 mg/dL (8.5-10.1); Chloride 107 mmol/L (98-107); Creatinine, Serum 0.68 mg/dL (0.55-1.02); EST Glomerular Filtration Rate 104 mL/min (>60); Est Glom Filt Rate - Afr Amer 126 mL/min (>60); Globulin 3.7 g/dL (2.2-4.2); Glucose 102 mg/dL (74-106); Protein, Total 7.7 g/dL (6.4-8.2); Sodium Level 139 mmol/L (136-145); Thyroid Stim Hormone (TSH) 0.95 uIU/mL (0.358-3.74)
== END | disposition home or self-care (01) ==
LOC: MFPLAB 15:54
PROVIDERS: PCP Family Medicine; Visit Provider Family Medicine
DX: O24.419 Gestational diabetes mellitus in pregnancy, unspecified control (principal); R53.83 Other fatigue; E55.9 Vitamin D deficiency, unspecified; O99.280 Endocrine, nutritional and metabolic diseases complicating pregnancy, unspecified trimester; Z3A.00 Weeks of gestation of pregnancy not specified
CPT/HCPCS: 36415; 80053; 82306; 82607; 83036; 84439; 84443

== ENCOUNTER → 2023-09-05 | Outpatient (CLI) | payer BC, SELFPAY ==
[2023-09-05 12:37] LABS: Absolute Lymphocyte Count 1.61 X10^3/uL (0.83-4.51); Basophil# 0.05 X10^3/uL; Basophil% 0.7 % (0-1); Eosinophil# 0.19 X10^3/uL; Eosinophils% 2.6 % (0-5); Hematocrit 36.6 % (37-47); Hemoglobin 12.2 g/dL (12.0-15.0); Lymphocyte # 1.61 X10^3/ul (0.83-4.51); Mean Corp Hgb Conc 33.3 g/dL (32-36); Mean Corpuscular Hgb 32.3 pg (27.0-32.0); Mean Corpuscular Volume 96.8 fL (81-99); Mean Platelet Vol. 10.1 fl (6.2-12.0); Monocyte# 0.45 X10^3/uL; Monocyte% 6.2 % (0-10); NRBC Flagged by Analyzer 0 % (0-5); Neutrophil # 4.99 X10^3/uL (2.7-7.7); Neutrophil % 68.2 % (47-70); Platelet Count 252 K/mm3 (150-450); RBC Distribution Width CV 12.2 % (11.6-14.6); RBC Distribution Width SD 43.2 fl (35.1-43.9); Red Blood Count 3.78 M/mm3 (4.2-5.4); White Blood Count 7.3 K/mm3 (4.4-11.0)
[2023-09-05 12:57] LABS: Vitamin D,25 Hydroxy 33.4 ng/mL
[2023-09-05 12:58] LABS: ALB/GLOB Ratio 1.1 RATIO (0.9-2.4); AST(SGOT) 24 U/L (15-37); Alanine Aminotransfer ALT/SGPT 24 U/L (13-56); Albumin, Serum 3.8 g/dL (3.2-5.0); Alkaline Phosphatase 98 U/L (45-117); Anion Gap 6 (5-15); BUN 15 mg/dL (7-18); BUN/Creat Ratio 23.7 RATIO (10-20); Calcium,Total 9.1 mg/dL (8.5-10.1); Chloride 108 mmol/L (98-107); Creatinine, Serum 0.63 mg/dL (0.55-1.02); EST Glomerular Filtration Rate 113 mL/min (>60); Est Glom Filt Rate - Afr Amer 137 mL/min (>60); Globulin 3.5 g/dL (2.2-4.2); Glucose 93 mg/dL (74-106); Protein, Total 7.3 g/dL (6.4-8.2); Sodium Level 139 mmol/L (136-145)
[2023-09-05 14:08] LABS: Hemoglobin A1c 5.1 % (3.8-5.6)
== END | disposition home or self-care (01) ==
LOC: MFPLAB 10:27
PROVIDERS: PCP Family Medicine; Visit Provider Family Medicine
DX: O24.419 Gestational diabetes mellitus in pregnancy, unspecified control (principal); O99.280 Endocrine, nutritional and metabolic diseases complicating pregnancy, unspecified trimester; E55.9 Vitamin D deficiency, unspecified; Z3A.00 Weeks of gestation of pregnancy not specified
CPT/HCPCS: 36415; 80053; 82306; 83036; 85025

== ENCOUNTER → 2024-03-06 | Outpatient (CLI) | payer BC, SELFPAY ==
--- OUTSIDE RECORDS SUMMARY | 2024-03-06 11:26 | XMS RPT_ITS | CCD ---
Author Organization [facility] Care Team Providers Care Flat Folder Name Role Phone Del Solis MD Primary Care Provider [phone] Giuliano MCCARTY, Del Velasquez Primary Care Provider Giuliano MCCARTY, Del Velasquez Primary Care Provider DEL SOLIS Primary Care Unavailable ZION EPSTEIN Attending Unavailable JOANA OCAMPO Referring Unavailable WILL, DEL Elise Primary Care Unavailable MARIAM COYLE Attending Unavailable WILL, DEL Elise Primary Care Unavailable MARIAM COYLE Attending Unavailable WILL, DEL Elise Primary Care Unavailable SOLIS, DEL Elise Primary Care Unavailable SUZE BUTT Attending Unavailable SOLIS, DEL Elise Primary Care Unavailable JOANA OCAMPO Attending Unavailable GIULIANO, DEL Velasquez Primary Care Unavailable JOANA OCAMPO Referring Unavailable SCHINÁNGEL, DEL Velasquez Primary Care Unavailable JOANA OCAMPO Attending Unavailable SCHINNER, DEL E Primary Care Unavailable JOANA OCAMPO Referring Unavailable SOLIS, DEL K Primary Care Unavailable JOANA OCAMPO Attending Unavailable MARIAM COYLE Attending Unavailable WILL, DEL K Primary Care Unavailable SCHSAGE, DEL E Primary Care Unavailable SOLIS, DEL K Primary Care Unavailable ANA CRISTINA CONTRERAS Attending Unavail able WILL, DEL Elise Primary Care Unavailable ARJUN MCKENNA Referring Unavailable ONELIA ARIAS Attending Unavailable WILL, DEL K Primary Care Unavailable ANA CRISTINA CONTRERAS Referring Unavail able WILL, DEL Gosia Primary Care Unavailable Medications Current Medications Medication Drug Class(es) Dates Sig (Normalized) Sig (Original) Acetaminophen (20 sources) acetaminophen (TYLENOL ORAL) Take by mouth. 0 Active Comment on above: Take by mouth. Lactobacillus acidophilus (20 sources) Lactobacillus acidophilus (PROBIOTIC ORAL) Take by mouth. 0 Active Comment on above: Take by mouth. Cnygrxma-Yq-Vck-Fe-FA tab (20 sources) take 1 tablet by mouth once Ztocxcej-Xl-Wtx-Fe-FA tab Take 1 tablet by mouth. 0 Active Comment on above: Take 1 tablet by karl . Completed/Discontinued Medications Medication Drug Class(es) Dates Sig (Normalized) Sig (Original) aspirin 81 mg delayed release oral tablet (16 sources) Platelet Aggregation Inhibitor, Nonsteroidal Anti-inflammatory Drug Start: 08-17-2022 End: 03-31-2023 take 2 tablets by mouth once daily aspirin, enteric coated (ASPIRIN, ENTERIC COATED) 81 mg EC tablet Take 2 tablets by mouth once daily. 30 tablet 0 08/17/2022 03/31/2023 Discontinued (Course of therapy completed) Comment on above: Take 2 tablets by mo [facility] once daily. citric acid 0.01 mg/mg / lactic acid 0.018 mg/mg / potassium bitartrate 0.004 mg/mg vaginal gel (6 sources) Calculi Dissolution Agent, Anti-coagulant Start: 12-01-2020 End: 08-17-2022 lactic jncd-vdliff-ythgvw ium (PHEXXI) 1.8-1-0.4 % gel Insert 1 prefilled applicator vaginally immediately before or up to 1 hour before each act of vaginal intercourse 12 Applicator 5 12/01/2020 08/17/2022 Discontinued (Course of therapy completed) Comment on above: Insert 1 prefilled a pplicator vaginally immediately before or up to 1 hour before each act of vaginal intercourse COMPOUNDED PRESCRIPTION (6 sources) Start: 02-01-2019 End: 08-17-2022 COMPOUNDED PRESCRIPTION Massage therapy as needed for back, neck and shoulder pain 1 Device 0 02/01/2019 08/17/2022 Discontinued (Course of therapy completed) Start: 02-01-2019 COMPOUNDED PRE SCRIPTION Massage therapy as needed for back, neck and shoulder pain 1 Device 0 02/01/2019 Active Comment on above: Massage therapy as n eeded for back, neck and shoulder pain 3 ml insulin isophane, human 100 unt/ml pen injector (7 sources) Start: 3 End: 3 inject 10 [IU] by subcutaneous injection once daily at bedtime insulin NPH human (NOVOLIN N FLEXPEN) 100 unit/mL (3 mL) injection pen Inject 10 Units subcutaneously daily at bedtime. 3 mL 2 02/06/2023 03/31/2023 Discontinued (Course of therapy completed) Start: 02-02-2023 End: 02-02-2023 inject 10 [IU] by subcutaneous injection once daily at bedtime insulin NPH human (NOVOLIN N) susp Indications: 37 weeks gestation of , Multigravida of advanced maternal age in third trimester , GDM, class A2 Inject 10 Units subcutaneously daily at bedtime. 10 mL 1 02/02/2023 02/02/2023 Discontinued (Clinical Decision) Comment on above: Inject 10 Units subc utaneously daily at bedtime. Problems Active Problems Problem Classification Problem Date Documented Da te Episodic/Chronic Contraceptive and procreative management (3 sources) Patient encounter status; Translations: [Encounter for other general counseling and advice on contraception] Episodic Fever of unknown origin (1 source) Fever; Translations: [Fever, unspecified] 10-19-2023 Episodic Other upper respiratory infections (1 source) Acute upper respiratory infection; Translations: [Acute upper respiratory infection, unspecified] 10-19-2023 Episodic Residual codes; unclassified (2 sources) Gestation [...] [38 weeks gestation of ] 02-13-2023 Episodic Past or Other Problems Problem Classification Problem Date Documented Da te Episodic/Chronic Diabetes mellitus without complication (14 sources) Increased glucose level; Translations: [Other abnormal glucose] Onset: 07-16-2018 Resolved: 03-31-2023 11-30-2022 Episodic Diabetes or abnormal glucose tolerance complicating ; childbirth; or the puerperium (20 sources) History of gestational diabetes mellitus; Translations: [Personal history of gestational diabetes] Onset: 07-19-2018 Resolved: 03-31-2023 11-30-2020 Episodic Other complications of (20 sources) History of delivery of macrosomal infant; Translations: [Supervision of with other poor reproductive or obstetric history, unspecified trimester] Onset: 07-20-2022 Episodic Other complications of (20 sources) Multigravida of advanced maternal age; Translations: [Supervision of elderly multigravida, first trimester] Onset: 08-17-2022 Resolved: 03-31-2023 Episodic Other complications of (2 sources) Uterine size for dates discrepancy; Translations: [Uterine size-date discrepancy, first trimester] Onset: 03-03-2020 Resolved: 11-30-2020 11-30-2020 Episodic Other complications of (2 sources) Excessive growth affecting management of mother; Translations: [Maternal care for excessive growth, third trimester, not applicable or unspecified] Onset: 09-22-2020 Resolved: 11-30-2020 11-30-2020 Episodic Other complications of (2 sources) High risk ; Translations: [Supervision of high risk , unspecified, third trimester] Onset: 10-14-2020 Resolved: 11-30-2020 11-30-2020 Episodic Other complications of (1 source) Supervision of elderly multigravida, third trimester; Translations: [Multigravida of advanced maternal age in third trimester] Onset: 02-02-2023 Episodic Other complications of (1 source) Supervision of elderly multigravida, second trimester; Translations: [AMA (advanced maternal age) multigravida 35+, second trimester] Onset: 01-03-2023 Episodic Other connective tissue disease (20 sources) Diastasis recti; Translations: [Separation of muscle (nontraumatic), other site] Onset: 11-25-2019 Episodic Other and delivery including normal (20 sources) Normal ; Translations: [Encounter for supervision of other normal , unspecified trimester] Onset: 02-11-2016 Resolved: 03-31-2023 07-20-2022 Episodic Residual codes; unclassified (20 sources) FH: Congenital heart disease; Translations: [Family history of other congenital malformations, deformations and chromosomal abnormalities] Onset: 02-27-2020 02-27-2020 Episodic Residual codes; unclassified (1 source) 32 weeks gestation of ; Translations: [32 weeks gestation of ] Onset: 02-02-2023 Episodic Residual codes; unclassified (1 source) 22 weeks gestation of ; Translations: [22 weeks gestation of ] Onset: 11-30-2022 Episodic Screening and history of mental health and substance abuse codes (20 sources) H/O: depression; Translations: [Personal history of other mental and behavioral disorders] Onset: 02-07-2018 02-27-2020 Episodic Results Test Name Value Interpretation Reference Range Facil nikki ELEUTERIO 10-19-2023 CNOV Office Visit (UCWSTR ) LORI AGARWAL ([id number]) 1985 F Date Time Provider Department 10/19/23 6:45 PM PERLITA SLOAN [facility] During your visit today, we recorded the following information about you: Temperature Pulse Respiration Blood pressure 98.5 degrees 82/minute 20/minute 105/70 Weight 72 kg Perlita Sloan PA 10/19/2023 7:12 PM Signed This note was created using NoteWriter. Subjective Lori Agarwal is a 38 year old female. HPI 38-year-old female presents for cough, fever, body aches, headache x 3 days. Patient states Monday she started getting sick. She has had cough, body aches, headache and fever. Tmax 101 ?F. She denies any sore throat. She states that her kids had strep about a month and a half ago. She states 2 of her daughters have a cough currently. Patient has not had any vomiting or diarrhea. No chest pain or shortness of breath. Patient has taken Motrin which has helped with her symptoms today. She is breast-feeding. No other complaint. PAST MEDICAL HISTORY Diagnosis Date anxiety/depression Dysmenorrhea fracture arm basketball accident History of gestational diabetes 07/19/2018 PAST SURGICAL HISTORY Procedure Laterality Date EXTRACTION, ERUPTED TOOTH OR EXPOSED ROOT (ELEVATION AND/OR FORCEPS REMOVAL) 12/2007 REMOVE TONSIL AND ADENOI UNDER AGE 14 1996 ALLERGIES Patient has no known allergies. MEDICATIONS acetaminophen (TYLENOL ORAL) Take by mouth. Lactobacillus acidophilus (PROBIOTIC ORAL) Take by mouth. Adtviyjw-Qo-Dmt-Fe-FA tab Take 1 tablet by mouth. FAMILY HISTORY Problem Relation Age of Onset Arthritis Father Heart Father Murmur Cancer Father Arthritis Mother Maternal Grandparents-psoriati c and rhuematoid Hypertension Mother other (kidney stones) Mother Hypertension Brother other (kidney stones) Sister other (gestational diabetes) Sister Cancer Maternal Grandfather Melanoma Hypertension Maternal Grandfather Heart Maternal Grandfather PA Ischemic Heart Disease Maternal Grandmother Cancer Paternal Grandfather other (Penicillin allergy) Daughter No Known Problems Daughter Social History Tobacco Use Smoking status: Never Smokeless tobacco: Never Vaping Use Vaping Use: Never used Substance Use Topics Alcohol use: Not Currently Comment: Seldom, not while Drug use: No Review of Systems Constitutional: Positive for fever. Negative for chills. HENT: Negative for congestion, ear pain and sore throat. Respiratory: Positive for cough. Negative for shortness of breath. Cardiovascular: Negative for chest pain. Gastrointestinal: Negative for diarrhea and vomiting. Musculoskeletal: Positive for myalgias. Objective BP 105/70 Pulse 82 Temp 36.9 ?C (98.5 ?F) Resp 20 Wt 72 kg (158 lb 11.7 oz) LMP 05/30/2022 (Approximate) SpO2 98% Yes BMI 26.41 kg/m? Physical Exam Vitals and nursing note reviewed. Constitutional: General: She is not in acute distress. Appearance: Normal appearance. She is not toxic-appearing. HENT: Right Ear: Tympanic membrane and ear canal normal. Left Ear: Tympanic membrane and ear canal normal. Nose: Nose normal. Mouth/Throat: Mouth: Mucous membranes are moist. Pharynx: Posterior oropharyngeal erythema present. No oropharyngeal exudate. Tonsils: 1+ on the right. 1+ on the left. Eyes: Conjunctiva/sclera: Conjunctivae normal. Cardiovascular: Rate and Rhythm: Normal rate and regular rhythm. Pulmonary: Effort: Pulmonary effort is normal. Breath sounds: Normal breath sounds. No wheezing, rhonchi or rales. Neurological: Mental Status: She is alert. Assessment and Plan ASSESSMENT/PLAN: 1. Fever, unspecified fever cause - ICD9: 780.60, ICD10: R50.9 (primary diagnosis) - STREP A MOLECULAR (POC)-negative -Suspect viral. -Tylenol/Motrin, fluids, rest. 2. URI, acute - ICD9: 465.9, ICD10: J06.9 - Discussed viral etiology and rationale for treatment. - Symptomatic treatment with prn analgesia - Supportive care with fluids and rest - The patient may also use warm salt water gargles, throat lozenges and/or OTC throat spray as needed -Tylenol/Motrin as needed for pain/fever. -May take Mucinex to help with chest congestion Diagnosis and treatment plan were discussed and questions were answered to the patient's satisfaction. Pt acknowledged understanding of concepts and follow up plan. Specific signs and symptoms that would indicate the need for higher level of care were discussed in detail warranting prompt ER evaluation. HOWARD Mills Krislyn P, PA 10/19/2023 7:08 PM Signed Rest, increase water intake Motrin or Tylenol as needed for fever or pain. Salt water gargles, chloraseptic spray or lozenges as needed for sore throat. Warm beverages, honey. Nasal saline spray as needed Cool mist humidifier at night A (more content not included)... Normal [facility] STREP A MOLECULAR (POC)on Procedural Control Valid [facility] Strep A (POCT) Negative Negative [facility] BACTERIAL VAGINOSIS NAATon 0 10-11-2023 Lactobacillus crispatus+gasseri+j ensenii + Gardnerella vaginalis + Atopobium vaginae rRNA JULIETH+probe Ql (Vag fld) Negative Normal Negative for bacterial vaginosis [facility] Comment on above: Order Comment: Speci men Type: SWABOrdering Facility: [facility] Address: [address] [place] [address] Performed By: #### B VAMP, CVTV ####[facility] LABCLIA [id number] [place] [address] [place] CLAUDIO/TRICHOMONAS NAATon 0 10-11-2023 C. glabrata RNA JULIETH+probe Ql (Vag fld) Negative Normal Negative for Claudio glabrata [facility] Comment on above: Order Comment: Speci men Type: SWABOrdering Facility: [facility] Address: [address] [place] [address] Performed By: #### B VAMP, CVTV ####[facility] LABCLIA [id number] [place] [address] [place] Claudio sp DNA JULIETH+probe Ql (Vag fld) Negative Normal Negative for Claudio species [facility] Comment on above: Order Comment: Speci men Type: SWABOrdering Facility: [facility] Address: [address] [place] [address] Performed By: #### B VAMP, CVTV ####[facility] LABCLIA [id number] [address] [place] T. vaginalis DNA JULIETH+probe Ql (Unsp spec) Negative Normal Negative for Trichomonas vaginalis by amplification [facility] Comment on above: Order Comment: Speci men Type: SWABOrdering Facility: [facility] Address: [address] [place] [address] Performed By: #### B VAMP, CVTV ####[facility] LABCLIA [id number] [place] [address] [place] CNOVon 10-11-2023 CNOV Office Visit (OBGYWM ) LORI AGARWAL ([id number]) 1985 F Date Time Provider Department 10/11/23 11:30 AM JOANA OCAMPO OBAMARIS During your visit today, we recorded the following information about you: Blood pressure Weight Height 100/60 72.6 kg 1.651 m Joana Ocampo APRN.CN 10/11/2023 12:40 PM Signed Telephone Quotation Clerk offered: Patient declines. Lori is a 38 year old who presents for an annual gynecologic exam without complaints. Menses: cycles every 30 days and 5 days of flow. Contraception: vasectomy HPV vaccine: No Last Pap: 07/26/2022 normal HPV: 07/25/2022 negative History of abnormal pap: No Last mammogram: never Sexually active: Yes Pain with intercourse: No Postcoital bleeding: No OB History T4 L4 SAB0 IAB0 Ectopic0 Multiple0 Live Births4 Fast Brim Pouncer History LMP: 05/30/2022 (Approximate), Unknown Age at Menarche: Age at First : Age at Menopause: Fast Brim Pouncer History Comments: Sexual Activity: Yes; Male Contraception: [...] Father Murmur Cancer Father Arthritis Mother Maternal Grandparents-psoriati c and rhuematoid Hypertension Mother other (kidney stones) Mother Hypertension Brother other (kidney stones) Sister other (gestational diabetes) Sister Cancer Maternal Grandfather Melanoma Hypertension Maternal Grandfather Heart Maternal Grandfather PA Ischemic Heart Disease Maternal Grandmother Cancer Paternal [...] retraction. Allergies and current medication updated:Yes EXAM: BP 100/60 Ht 5' 5 (1.65m) Wt 160 lb (72.6kg) LMP 05/30/2022 BMI 26.63 kg/(m2). GENERAL: pleasant, female in no apparent distress HEENT: Normocephalic, atraumatic, mucus membranes moist, and no lesions NECK: Supple, full range of motion, no adenopathy, and thyroid normal DERMATOLOGY: Normal, without lesions, non-icteric, and non-hirsute BREAST: soft, non-tender, symmetric, no dominant mass, normal nipple-areolar complex, no lymphadenopathy, and no nipple discharge CHEST: Normal inspiratory effort ABDOMEN: soft, non-tender, and no masses PELVIC: external genitalia normal, normal Bartholin's glands, urethra, Marine's glands, no vulvar lesions, no cervical lesions, [...] for annual exam in one year. 2. Surveillance for control, vasectomy - ICD9: V25.49, ICD10: Z30.8 1) Health maintenance: Pap/HPV up to date. Nutrition, exercise and routine health maintenance exams reviewed. Calcium/Vitamin D supplementation information provided. Lipids/glucose: followed by PCP Vitamin D: followed by PCP 2) Contraception: vasectomy. Contraceptive options reviewed and information provided. 3) STD screening: Declined STD check. 4) Follow up one year or sooner as needed Joana Ocampo APRN.Sriram Heller MA 10/11/2023 12:42 PM Signed Addended by: SRIRAM KNAPP on: 10/11/2023 12:42 PM Modules accepted: Orders Allergies As of Date: 10/11/2023 (No Known Allergies) Date Reviewed: 03/31/2023 Reviewed by: Joana Ocampo APRN.CNM - Fully Assessed Reason for Visit: Yearly Exam [187] Primary Visit Diagnosis:Encounter for gynecological examination (general) (routine) without abnormal findings [Z01.419] Other Visit Diagnosis:Surveillanc e for control, vasectomy [Z30.8] Order(s):BACTERIAL V (more content not included)... Normal [facility] GLUCOSE 1 HOURon 05-04-2023 Glucose 1 Hr post Unsp challenge [Mass/Vol] 206 mg/dL Normal See Comment [facility] Comment on above: Order Comment: Frantz avina Type: BLOOD SPECIMENOrdering Facility: [facility] Address: [address] [id number] Result Comment: A di agnostic cutoff for this time point is not established, and should be clinically determined. [place] [employer] Association guidelines state a diabetes mellitus diagnosis is preliminarily made when the fasting plasma glucose meets or exceeds 126 mg/dL and/or the 2 hr glucose tolerance meets or exceeds 200 mg/dL. In the absence of unequivocal hyperglycemia, results should be confirmed with repeat testing. Patients are at increased risk for diabetes mellitus (prediabetes) when the fasting glucose is 100 to 125 mg/dL or the 2 hr glucose tolerance result is 140 to 199 mg/dL. Performed By: #### G LU60 ####[facility] LABCLIA [id number] [facility] [id number] [id number] [place] GLUCOSE, 0 HOURon 05-04-2023 Glucose baseline [Mass/Vol] 88 mg/dL Normal 74-99 [facility] Comment on above: Order Comment: Frantz kailyn Type: BLOOD SPECIMENOrdering Facility: [facility] Address: [address] [place] [address] Result Comment: [place] Diabetes Association guidelines state a diabetes mellitus diagnosis is preliminarily made when the fasting plasma glucose meets or exceeds 126 mg/dL and/or the 2 hr glucose tolerance meets or exceeds 200 mg/dL. In the absence of unequivocal hyperglycemia, results should be confirmed with repeat testing. Patients are at increased risk for diabetes mellitus (prediabetes) when the fasting glucose is 100 to 125 mg/dL or the 2 hr glucose tolerance result is 140 to 199 mg/dL. Performed By: #### G T0 ####[facility] LABIA [id number] [place] [id number] [place] GLUCOSE, 2 HOURon 05-04-2023 Glucose 2 Hr post Unsp challenge [Mass/Vol] 142 mg/dL High 74-139 [facility] Comment on above: Order Comment: Speci men Type: BLOOD SPECIMENOrdering Facility: [facility] Address: [address] [place] [address] Result Comment: [place] Diabetes Association guidelines state a diabetes mellitus diagnosis is preliminarily made when the fasting plasma glucose meets or exceeds 126 mg/dL and/or the 2 hr glucose tolerance meets or exceeds 200 mg/dL. In the absence of unequivocal hyperglycemia, results should be confirmed with repeat testing. Patients are at increased risk for diabetes mellitus (prediabetes) when the fasting glucose is 100 to 125 mg/dL or the 2 hr glucose tolerance result is 140 to 199 mg/dL. Performed By: #### G T2 ####[facility] LABIA [id number] [place] [id number] [place] BIOPHYSICAL PROFILE WHIon 02-13-2023 [facility] BIOPHYSICAL PROFILE US WHIon 02-06-2023 [facility] CNPNon 02-03-2023 CNPN Telephone (OBGYWM) LORI AGARWAL ([id number]) 1985 F Date Time Provider Department 02/03/23 MARIAM COYLE During your visit today, we recorded the following information about you: Nilsa Nam LPN 02/03/2023 1:20 PM Signed Electronic PA submitted for Humulin N NPH insulin Kwiklos. Will await further response from pt's insurance. Nilsa Viv MolinaNilsa sun JAMEY 02/06/2023 1:49 PM Signed Received denial for Humulin Kwikpen. Please advise. Nilsa Viv MolinaNilsa sun JAMEY 02/06/2023 2:14 PM Signed Spoke with pharmacy and they stated that this insulin is covered. Please see pended order. Mariam Bruce LPN, APRN.CNM 02/06/2023 3:24 PM Signed Rx signed. DARIO LaDemetraNilsa JAMEY 02/06/2023 3:36 PM Signed Will await further response from pt's insurance. Nilsa Viv MolinaDemetra sunberly JAMEY 02/07/2023 1:27 PM Signed Pt called office and given update that new rx called into pharmacy for insulin. Pt will go an picking supervisor later today. Nilsa Nam LPN Allergies As of Date: 02/03/2023 (No Known Allergies) Date Reviewed: 02/02/2023 Reviewed by: Sriram Knapp Cma - Fully Assessed Reason for Visit: Insurance Authorization [[id number]] Order(s):insulin NPH human (NOVOLIN N FLEXPEN) 100 unit/mL (3 mL) injection penInject 10 Units subcutaneously daily at bedtime.Disp: 3 mLRfl: 2 Prescriptions as of 02/07/2023 - insulin NPH human (NOVOLIN N FLEXPEN) 100 unit/mL (3 mL) injection pen Inject 10 Units subcutaneously daily at bedtime. - insulin needles, DISPOSABLE, (BD INSULIN PEN NEEDLE UF) 31 gauge x 5/16 1 Each daily at bedtime. - aspirin, enteric coated (ASPIRIN, ENTERIC COATED) 81 mg EC tablet Take 2 tablets by mouth once daily. - acetaminophen (TYLENOL ORAL) Take by mouth. - Lactobacillus acidophilus (PROBIOTIC ORAL) Take by mouth. - Smpcowml-Sr-Srm-Fe-FA tab Take 1 tablet by mouth. Problem List As Of Date 02/03/2023 Noted Resolved Supervision of other normal , antepart*02/11/2016 History of depression [Z86.59] 02/07/2018 Elevated glucose [R73.09] 07/16/2018 Gestational diabetes mellitus, class A1 [O24.41*07/19/2018 11/30/2020 History of gestational diabetes mellitus [Z86.3*10/23/2018 03/03/2020 Diastasis recti [M62.08] 11/25/2019 History of gestational diabetes in prior pregna*02/27/2020 11/30/2020 Family history of congenital heart defect [Z82.*02/27/2020 Uterine size-date discrepancy, first trimester *03/03/2020 11/30/2020 Abnormal glucose in , antepartum [O99.*03/04/2020 11/30/2020 Excessive growth affecting management of *09/22/2020 11/30/2020 Supervision of high risk in third tri*10/14/2020 11/30/2020 History of gestational diabetes mellitus [Z86.3*11/30/2020 History of macrosomia in in prior pregna*07/20/2022 Multigravida of advanced maternal age in third *08/17/2022 GDM, class A2 [O24.419] 02/02/2023 Prescriptions ordered this encounter Disp Refills Start End NOVOLIN N FLEXPEN 100 UNIT/ML (3 ML)* 3 mL 2 02/06/2023 Route: SUBCUTANEOUS Sig: Inject 10 Units subcutaneously daily at bedtime. Medications Discontinued During This Encounter Prescriptions - insulin NPH human (HUMULIN N NPH INSULIN KWIKPEN) 100 unit/mL (3 mL) injection pen (Discontinued) Inject 10 Units subcutaneously daily at bedtime. Encounter Status:Closed by MARIAM COYLE on 02/06/23 [facility] [facility]2023 [facility] Telephone (SARAGYWM) LORI AGARWAL ([id number]) 1985 F Date Time Provider Department 02/02/23 MARIAM COYLE During your visit today, we recorded the following information about you: Mariam Coyle APRN.TRACY 02/02/2023 12:43 PM Signed Patient diagnosed with GDM and started on [...] cannot be completed. Thank you Mariam Coyle APRN.Nilsa Ahumada LPN 02/02/2023 1:53 PM Signed Message left asking pt to call the office for further instructions. Also, need to know which pharmacy pt would like insulin sent to.Rx placed in Phone room. Sanjana Perez LPN, RN 02/02/2023 3:24 PM Signed Patient notified. Scheduled her appointments for the next 2 weeks. Will send her a DGSE message with appointment times and insulin teaching. Patient declined a visit with art educator at this time. Prescriptions pending for NPH Kwikpen and pen needles if approved by her insurance. Please file. Thank you. Mariam Soto RN, APRN.CNM 02/02/2023 3:29 PM Signed Rx signed. Mariam Coyle APRN.CNM Allergies As of Date: 02/02/2023 (No Known Allergies) Date Reviewed: 02/02/2023 Reviewed by: Sriram Knapp Cma - Fully Assessed Reason for Visit: Patient Update [1234] Primary Visit Diagnosis:GDM, class A2 [O24.419] Order(s):insulin NPH human (HUMULIN N NPH INSULIN KWIKPEN) 100 unit/mL (3 mL) injection penInject 10 Units subcutaneously daily at bedtime.Disp: 3 mLRfl: 2 insulin needles, DISPOSABLE, (BD INSULIN PEN NEEDLE UF) 31 gauge x 5/16 1 Each daily at bedtime.Disp: 30 EachRfl: 1 Prescriptions as of 02/02/2023 - insulin NPH human (HUMULIN N NPH INSULIN KWIKPEN) 100 unit/mL (3 mL) injection pen Inject 10 Units subcutaneously daily at bedtime. - insulin needles, DISPOSABLE, (BD INSULIN PEN NEEDLE UF) 31 gauge x 5/16 1 Each daily at bedtime. - aspirin, enteric coated (ASPIRIN, ENTERIC COATED) 81 mg EC tablet Take 2 tablets by mouth once daily. - acetaminophen (TYLENOL ORAL) Take by mouth. - Lactobacillus acidophilus (PROBIOTIC ORAL) Take by mouth. - Prtvcbcd-Ro-Azp-Fe-FA tab Take 1 tablet by mouth. Problem List As Of Date 02/02/2023 Noted Resolved Supervision of other normal , antepart*02/11/2016 History of depression [Z86.59] 02/07/2018 Elevated glucose [R73.09] 07/16/2018 Gestational diabetes mellitus, class A1 [O24.41*07/19/2018 11/30/2020 History of gestational diabetes mellitus [Z86.3*10/23/2018 03/03/2020 Diastasis recti [M62.08] 11/25/2019 History of gestational diabetes in prior pregna*02/27/2020 11/30/2020 Family history of congenital heart defect [Z82.*02/27/2020 Uterine size-date discrepancy, first trimester *03/03/2020 11/30/2020 Abnormal glucose in , antepartum [O99.*03/04/2020 11/30/2020 Excessive growth affecting management of *09/22/2020 11/30/2020 Supervision of high risk in third tri*10/14/2020 11/30/2020 History of gestational diabetes mellitus [Z86.3*11/30/2020 History of macrosomia in in prior pregna*07/20/2022 Multigravida of advanced maternal age in third *08/17/2022 GDM, class A2 [O24.419] 02/02/2023 Prescriptions ordered this encounter Disp Refills Start End HUMULIN N NPH U-100 INSULIN KWIKPEN * 3 mL 2 02/02/2023 Route: SUBCUTANEOUS Sig: Inject 10 Units subcutaneously daily at bedtime. PEN NEEDLE, DIABETIC 31 GAUGE X 5/16 30 E* 1 02/02/2023 Route: Misc Si Each daily at bedtime. Medications Discontinued During This Encounter Prescriptions - insulin NPH human (NOVOLIN N) susp (Discontinued) Inject 10 Units subcutaneously daily at bedtime. Encounter Status:Closed by MARIAM COYLE on 02/02/23 Normal [facility] ROUTINE, GROUP B ST REP PCRon 02-02-2023 ROUTINE, GROUP B STREP PCR GROUP B STREP PCR: Negative for Group B Streptococcus by PCR. Normal [facility] Comment on above: Performed By: #### G BPCR ####[facility] LABCLIA [id number] [place] [address] [place] URINE OB DIP B/Oon 3 Glucose Ql (U) Negative Neg mg/dL [facility] Protein.monoclonal (U) [Mass/Vol] Negative Neg mg/dL [facility] URINE OB DIP B/Oon 3 Glucose Ql (U) Negative Neg mg/dL [facility] Protein.monoclonal (U) [Mass/Vol] Negative Neg mg/dL [facility] URINE OB DIP B/Oon 3 Glucose Ql (U) Negative Neg mg/dL [facility] Protein.monoclonal (U) [Mass/Vol] Negative Neg mg/dL [facility] CNPNon 12-01-2022 CNPN Telephone (OBGYWM) LORI AGARWAL ([id number]) 1985 F Date Time Provider Department 12/01/22 MARIAM COYLE OBAMARIS During your visit today, we recorded the following information about you: Misty Salvador RN 12/01/2022 4:50 PM Signed ----- Message from Mariam Coyle APRN.CNM sent at 11/30/2022 5:29 PM EDT ----- 1 hour GCT elevated. Please notify patient that she will need to complete a fasting 3 hour GTT. Order placed. DARIO La Trisha RN 12/01/2022 4:56 PM Signed Patient notified. She had GDM with last two pregnancies. She wants to not do the 3 hour GTT and go straight to testing 4 times a day instead. She plans to buy meter and testing supplies OTC and start testing. Next visit 12/19/22. Will send Abakan message with updated blood sugars after a week of testing. Any further recommendations? Mariam Huertas RN, APRN.CNM 12/02/2022 8:28 AM Signed Yes this sounds like a good plan. The only change is that we would like her to check her after meal levels 1 hour after instead of 2 hours. Please keep a log and send in results as previously planned. We can add the GDM order set so she will get education on diet etc. DARIO La Jennifer RN 12/02/2022 8:50 AM Signed Patient notified. Voiced understanding. Declines diabetic teaching at this time. She was counseled with her previous . She has all the materials and information from that visit. She plans to discuss if there is testing that her baby will need to do after they are born since patient did not do the 3 hour glucose. Mariam Soto RN, APRN.CNM 12/02/2022 10:50 AM Signed Thank you for the update. We can discuss at next visit. Mariam Coyle APRN.CNM Allergies As of Date: 12/01/2022 (No Known Allergies) Date Reviewed: 11/30/2022 Reviewed by: Mariam Coyle APRN.CNM - Fully Assessed Reason for Visit: Results [95] Prescriptions as of 12/02/2022 - aspirin, enteric coated (ASPIRIN, ENTERIC COATED) 81 mg EC tablet Take 2 tablets by mouth once daily. - acetaminophen (TYLENOL ORAL) Take by mouth. - Lactobacillus acidophilus (PROBIOTIC ORAL) Take by mouth. - Bkallfmr-Eu-Txk-Fe-FA tab Take 1 tablet by mouth. Problem List As Of Date 12/01/2022 Noted Resolved Supervision of other normal , antepart*02/11/2016 History of depression [Z86.59] 02/07/2018 Elevated glucose [R73.09] 07/16/2018 Gestational diabetes mellitus, class A1 [O24.41*07/19/2018 11/30/2020 History of gestational diabetes mellitus [Z86.3*10/23/2018 03/03/2020 Diastasis recti [M62.08] 11/25/2019 History of gestational diabetes in prior pregna*02/27/2020 11/30/2020 Family history of congenital heart defect [Z82.*02/27/2020 Uterine size-date discrepancy, first trimester *03/03/2020 11/30/2020 Abnormal glucose in , antepartum [O99.*03/04/2020 11/30/2020 Excessive growth affecting management of *09/22/2020 11/30/2020 Supervision of high risk in third tri*10/14/2020 11/30/2020 History of gestational diabetes mellitus [Z86.3*11/30/2020 History of macrosomia in in prior pregna*07/20/2022 Advanced maternal age in multigravida, first tr*08/17/2022 Encounter Status:Closed by MARIAM COYLE on 12/02/22 Normal [facility] CBC W Auto Differential pane l (Bld)on 11-30-2022 Basophils (Bld) [#/Vol] 0.06 10*3/uL Normal <0.11 [facility] Comment on above: Order Comment: Speci men Type: BLOOD SPECIMENOrdering Facility: [facility] Address: [address] [address] Performed By: #### 5 7021-8 ####[facility] [id number] [place] [address] [place] Basophils/100 WBC (Bld) 0.5 % Normal [facility] Comment on above: Order Comment: Speci men Type: BLOOD SPECIMENOrdering Facility: [facility] Address: [address] [address] Performed By: #### 5 7021-8 ####[facility] [id number] [place] [address] [place] Differential cell count method Nom (Bld) Auto Normal [facility] Comment on above: Order Comment: Speci men Type: BLOOD SPECIMENOrdering Facility: [facility] Address: [address] [place] [address] Performed By: #### 5 7021-8 ####[facility] NATALIETOPINABEENCELIZABETH [id number] [place] [address] [place] Eosinophils (Bld) [#/Vol] 0.17 10*3/uL Normal <0.46 [facility] Comment on above: Order Comment: Speci men Type: BLOOD SPECIMENOrdering Facility: [facility] Address: [address] [place] [address] Performed By: #### 5 7021-8 ####[facility] [id number] [place] [address] [place] Eosinophils/100 WBC (Bld) 1.5 % Normal [facility] Comment on above: Order Comment: Speci men Type: BLOOD SPECIMENOrdering Facility: [facility] Address: [address] [place] [address] Performed By: #### 5 7021-8 ####[facility] INSTITUTENCLIA [id number] [place] [address] [place] Erythrocyte distribution width (RBC) [Ratio] 13.1 % Normal 11.5-15.0 [facility] Comment on above: Order Comment: Speci men Type: BLOOD SPECIMENOrdering Facility: [facility] Address: [address] [place] [address] Performed By: #### 5 7021-8 ####[facility] INSTITUTENCLIA [id number] [place] [address] [place] Hematocrit (Bld) [Volume fraction] 34.1 % Low 36.0-46.0 [facility] Comment on above: Order Comment: Speci men Type: BLOOD SPECIMENOrdering Facility: [facility] Address: [address] [place] [address] Performed By: #### 5 7021-8 ####[facility]ITAL[facility]CL[facility] [id number] [place] [address] [place] Hemoglobin (Bld) [Mass/Vol] 11.4 g/dL Low 11.5-15.5 [facility] Comment on above: Order Comment: Speci men Type: BLOOD SPECIMENOrdering Facility: [facility] Address: [address] Performed By: #### 5 7021-8 ####[facility] INSTITUTENCLIA [id number] [place] [address] [place] Immature granulocytes (Bld) [#/Vol] 0.10 10*3/uL High <0.10 [facility] Comment on above: Order Comment: Speci men Type: BLOOD SPECIMENOrdering Facility: [facility] Address: [address] [place] [address] Performed By: #### 5 7021-8 ####[facility] AKRONL[facility] [id number] [place] [address] [place] Immature granulocytes/100 WBC (Bld) 0.9 % Normal [facility] Comment on above: Order Comment: Speci men Type: BLOOD SPECIMENOrdering Facility: [facility] Address: [address] [place], [place] [address] Performed By: #### 5 7021-8 ####[facility] INSTITUTENCLIA [id number] [place] [address] [place] Lymphocytes (Bld) [#/Vol] 1.53 10*3/uL Normal 1.00-4.00 [facility] Comment on above: Order Comment: Speci men Type: BLOOD SPECIMENOrdering Facility: [facility] Address: [address] [place] [address] Performed By: #### 5 7021-8 ####[facility]RONL[facility] [id number] [place] [address] [place] Lymphocytes/100 WBC (Bld) 13.5 % Normal [facility] Comment on above: Order Comment: Speci men Type: BLOOD SPECIMENOrdering Facility: [facility] Address: [address] [place] [address] Performed By: #### 5 7021-8 ####[facility] [id number] [place] [address] [place] MCH (RBC) [Entitic mass] 33.2 pg Normal 26.0-34.0 [facility] Comment on above: Order Comment: Speci men Type: BLOOD SPECIMENOrdering Facility: [facility] Address: [address] [place] [address] Performed By: #### 5 7021-8 ####[facility] [id number] [place] [address] [place] MCHC (RBC) [Mass/Vol] 33.4 g/dL Normal 30.5-36.0 [facility] Comment on above: Order Comment: Speci men Type: BLOOD SPECIMENOrdering Facility: [facility] Address: [address] [place] [address] Performed By: #### 5 7021-8 ####[facility] [id number] [place] [address] [place] MCV (RBC) [Entitic vol] 99.4 fL Normal 80.0-100.0 [facility] Comment on above: Order Comment: Speci men Type: BLOOD SPECIMENOrdering Facility: [facility] Address: [address] [place] [address] Performed By: #### 5 7021-8 ####[facility] [id number] [place] [address] [place] Monocytes (Bld) [#/Vol] 0.58 10*3/uL Normal <0.87 [facility] Comment on above: Order Comment: Speci men Type: BLOOD SPECIMENOrdering Facility: [facility] Address: [address] [place] [address] Performed By: #### 5 7021-8 ####[facility] [id number] [place] [address] [place] Monocytes/100 WBC (Bld) 5.1 % Normal [facility] Comment on above: Order Comment: Speci men Type: BLOOD SPECIMENOrdering Facility: [facility] Address: [address] [place] [address] Performed By: #### 5 7021-8 ####[facility] [id number] [place] [address] [place] Neutrophils (Bld) [#/Vol] 8.87 10*3/uL High 1.45-7.50 [facility] Comment on above: Order Comment: Speci men Type: BLOOD SPECIMENOrdering Facility: [facility] Address: [address] [place] [address] Performed By: #### 5 7021-8 ####[facility] [id number] [place] [address] [place] Neutrophils/100 WBC (Bld) 78.5 % Normal [facility] Comment on above: Order Comment: Speci men Type: BLOOD SPECIMENOrdering Facility: [facility] Address: [address] [place] [address] Performed By: #### 5 7021-8 ####[facility] [id number] [place] [address] [place] Nucleated RBC (Bld) [#/Vol] 10*3/uL Normal <0.01 [facility] Comment on above: Order Comment: Speci men Type: BLOOD SPECIMENOrdering Facility: [facility] Address: [address] [address] Performed By: #### 5 7021-8 ####[facility] MARLEN [id number] [place] [address] [place] Nucleated RBC/100 WBC (Bld) [Ratio] 0.0 /100 WBC Normal [facility] Comment on above: Order Comment: Speci men Type: BLOOD SPECIMENOrdering Facility: [facility] Address: [address] [address] Performed By: #### 5 7021-8 ####[facility] INSTITUTENCVIOLET [id number] [place] [address] [place] Platelet mean volume (Bld) [Entitic vol] 9.8 fL Normal 9.0-12.7 [facility] Comment on above: Order Comment: Speci men Type: BLOOD SPECIMENOrdering Facility: [facility] Address: [address] [place] [address] Performed By: #### 5 7021-8 ####[facility] INSTITUTESMITHAmauri [id number] [place] [address] [place] Platelets (Bld) [#/Vol] 212 10*3/uL Normal 150-400 [facility] Comment on above: Order Comment: Speci men Type: BLOOD SPECIMENOrdering Facility: [facility] Address: [address] [place], [place] [address] Performed By: #### 5 7021-8 ####[facility] INSTITUTESMITHLIA [id number] [place] [address] [place] RBC (Bld) [#/Vol] 3.43 10*6/uL Low 3.90-5.20 [facility] Comment on above: Order Comment: Speci men Type: BLOOD SPECIMENOrdering Facility: [facility] Address: [address] [place], [place] [address] Performed By: #### 5 7021-8 ####[facility]ITALWNCLIA [id number] [place] [address] [place] WBC (Bld) [#/Vol] 11.31 10*3/uL High 3.70-11.00 [facility] Comment on above: Order Comment: Speci men Type: BLOOD SPECIMENOrdering Facility: [facility] Address: [address] [place] [address] Performed By: #### 5 7021-8 ####[facility] [id number] [place] [address] [place] GEST GLUC SCREEN, 1-HR, 50 G M, NON-FASTINGon 11-30-2022 Glucose [Mass/Vol] 161 mg/dL High 74-134 [facility] Comment on above: Order Comment: Speci men Type: BLOOD SPECIMENOrdering Facility: [facility] Address: [address] [place] [address] Result Comment: [facility] Congress of Obstetricians and Gynecologists (Bright/Roxy) guidelines state a gestational diabetes mellitus positive screen is made, in women not previously diagnosed with overt diabetes, when the 1 hr plasma glucose level is equal to or above 140 mg/dL. The [facility] Doctor Of Podiatric Medicine and Women's Health [place] recommends a 135 mg/dL cutoff. Performed By: #### G LTGST ####[facility] [id number] [place] [address] [place] Reagin and Treponema pallidu m IgG and IgM [Interp]on 11-30-2022 SYPHILIS INTERPRETATION Cannot exclude recent Treponemal infection if specimen collected within 7-10 days after appearance of suspect lesions or 2-3 weeks after an exposure. Clinical correlation is required. Normal [facility] Comment on above: Order Comment: Speci men Type: BLOOD SPECIMENOrdering Facility: [facility] Address: [address] [place] [address] Performed By: #### 7 3752-8 ####[facility] LABCLIA [id number] [place] [address] [place] T. pallidum IgG+IgM IA Ql (S) Non-Reactive Normal Nonreactive [facility] Comment on above: Order Comment: Speci men Type: BLOOD SPECIMENOrdering Facility: [facility] Address: [address] [place] [address] Performed By: #### 7 3752-8 ####[facility] [id number] [address] [place] CNPRee 11-17-2022 CNPN Telephone (OBGYWM) LORI AGARWAL ([id number]) 1985 F Date Time Provider Department 11/17/22 SUZE BUTT During your visit today, we recorded the following information about you: Sanjana Saez RN 11/17/2022 11:46 AM Signed 26w0d Patient states she was stung by a hornet directly on her abdomen. She does not have a bee allergy, but concerned about the baby. Reassurance given. Please advise. Sanjana Butt MD 11/17/2022 12:50 PM Signed If not allergic no harm to . Recommend cool compresses PRN Sanjana Saez RN 11/17/2022 1:34 PM Signed Patient notified. Sanjana Saez RN Allergies As of Date: 11/17/2022 (No Known Allergies) Date Reviewed: 10/24/2022 Reviewed by: Joana Ocampo APRN.CNM - Fully Assessed Reason for Visit: OB Bee Sting [Other] Prescriptions as of 11/17/2022 - aspirin, enteric coated (ASPIRIN, ENTERIC COATED) 81 mg EC tablet Take 2 tablets by mouth once daily. - acetaminophen (TYLENOL ORAL) Take by mouth. - Lactobacillus acidophilus (PROBIOTIC ORAL) Take by mouth. - Hsmmjanb-On-Oun-Fe-FA tab Take 1 tablet by mouth. Problem List As Of Date 11/17/2022 Noted Resolved Supervision of other normal , antepart*02/11/2016 History of depression [Z86.59] 02/07/2018 Abnormal glucose complicating [O99.81*07/16/2018 10/23/2018 Gestational diabetes mellitus, class A1 [O24.41*07/19/2018 11/30/2020 History of gestational diabetes mellitus [Z86.3*10/23/2018 03/03/2020 Diastasis recti [M62.08] 11/25/2019 History of gestational diabetes in prior pregna*02/27/2020 11/30/2020 Family history of congenital heart defect [Z82.*02/27/2020 Uterine size-date discrepancy, first trimester *03/03/2020 11/30/2020 Abnormal glucose in , antepartum [O99.*03/04/2020 11/30/2020 Excessive growth affecting management of *09/22/2020 11/30/2020 Supervision of high risk in third tri*10/14/2020 11/30/2020 History of gestational diabetes mellitus [Z86.3*11/30/2020 History of macrosomia in in prior pregna*07/20/2022 Advanced maternal age in multigravida, first tr*08/17/2022 Encounter Status:Closed by SANJANA SAEZ RN on 11/17/22 Normal [facility] URINE OB DIP B/Oon 3 Glucose Ql (U) Negative Neg mg/dL [facility] Protein.monoclonal (U) [Mass/Vol] Negative Neg mg/dL [facility] URINE OB DIP B/Oon 3 Glucose Ql (U) Negative Neg mg/dL [facility] Protein.monoclonal (U) [Mass/Vol] Negative Neg mg/dL [facility] OBSTETRIC ULTRASOUND WHIon 0 08-01-2022 [facility] Vital Signs Date Time Vital Sign Value Performing Clinician Faci lity 10-19-2023 18:55-0400 Body mass index (BMI) [Ratio] 26.41 kg/m2 Joannan Aberegg PA Work Phone: [facility] 10-19-2023 18:55-0400 Body temperature 98.49 [degF] Krislyn Aberegg PA Work Phone: [facility] 10-19-2023 18:55-0400 Body weight 72 kg Krislyn Aberegg PA Work Phone: [facility] 10-19-2023 18:55-0400 Diastolic blood pressure 70 mm[Hg] Krislyn Aberegg PA Work Phone: [facility] 10-19-2023 18:55-0400 Heart rate 82 /min Krislyn Aberegg PA Work Phone: [facility] 10-19-2023 18:55-0400 Respiratory rate 20 /min Krislyn Aberegg PA Work Phone: [facility] 10-19-2023 18:55-0400 SaO2% (BldA) [Mass fraction] 98 % Krislyn Aberegg PA Work Phone: [facility] 10-19-2023 18:55-0400 Systolic blood pressure 105 mm[Hg] Krislyn Aberegg PA Work Phone: [facility] 10-11-2023 11:43-0400 Body height 165.1 cm Joana Ocampo APRN.CNM Work Phone: [facility] 10-11-2023 11:43-0400 Body mass index (BMI) [Ratio] 26.63 kg/m2 Joana Ocampo APRN.CNM Work Phone: [facility] 10-11-2023 11:43-0400 Body weight 72.58 kg Joana Ocampo APRN.CNM Work Phone: [facility] 10-11-2023 11:43-0400 Diastolic blood pressure 60 mm[Hg] Joana Ocampo APRN.CNM Work Phone: [facility] 10-11-2023 11:43-0400 Systolic blood pressure 100 mm[Hg] Joana Ocampo SKEINER.CNM Work Phone: [facility] 03-31-2023 09:49-0500 Body weight 75.93 kg Joana Ocampo SKEINER.CNM Work Phone: [facility] 03-31-2023 09:49-0500 Diastolic blood pressure 64 mm[Hg] Joana Ocampo SKEINER.CNM Work Phone: [facility] 03-31-2023 09:49-0500 Systolic blood pressure 118 mm[Hg] Joana Ocampo SKEINER.CNM Work Phone: [facility] 02-13-2023 08:33-0400 Diastolic blood pressure 66 mm[Hg] Ob Ultrasound Work Phone: [facility] 02-13-2023 08:33-0400 Systolic blood pressure 120 mm[Hg] Ob Ultrasound Work Phone: [facility] 02-06-2023 08:52-0400 Diastolic blood pressure 58 mm[Hg] Ob Ultrasound Work Phone: [facility] 02-06-2023 08:52-0400 Systolic blood pressure 106 mm[Hg] Ob Ultrasound Work Phone: [facility] 01-20-2023 11:32-0400 Body weight 78.93 kg Zion Epstein MD Work Phone: [facility] 01-20-2023 11:32-0400 Diastolic blood pressure 60 mm[Hg] Zion Epstein MD Work Phone: [facility] 01-20-2023 11:32-0400 Systolic blood pressure 114 mm[Hg] Zion Epstein MD Work Phone: [facility] 01-03-2023 13:36-0400 Body weight 80.29 kg Ana Cristina Rae MD Work Phone: [facility] 01-03-2023 13:36-0400 Diastolic blood pressure 56 mm[Hg] Ana Cristina Rae MD Work Phone: [facility] 01-03-2023 13:36-0400 Systolic blood pressure 108 mm[Hg] Ana Cristina Rae MD Work Phone: [facility] 12-19-2022 11:16-0400 Body weight 79.38 kg Mariam Cottonbetty SKEINER.CNM Work Phone: [facility] 12-19-2022 11:16-0400 Diastolic blood pressure 64 mm[Hg] Mariam Plotts SKEINER.CNM Work Phone: [facility] 12-19-2022 11:16-0400 Systolic blood pressure 100 mm[Hg] Mariam Plotbetty SKEINER.CNM Work Phone: [facility] 10-24-2022 11:17-0400 Body weight 75.75 kg Joana Ocampo SKEINER.CNM Work Phone: [facility] 10-24-2022 11:17-0400 Diastolic blood pressure 68 mm[Hg] Joana Ocampo SKEINER.CNM Work Phone: [facility] 10-24-2022 11:17-0400 Systolic blood pressure 110 mm[Hg] Joana Ocampo SKEINER.CNM Work Phone: [facility] 09-19-2022 13:13-0400 Body weight 74.39 kg Joana Ocampo SKEINER.CNM Work Phone: [facility] 09-19-2022 13:13-0400 Diastolic blood pressure 62 mm[Hg] Joana Ocampo SKEINER.CNM Work Phone: [facility] 09-19-2022 13:13-0400 Systolic blood pressure 110 mm[Hg] Joana Ocampo SKEINER.CNM Work Phone: [facility] 08-17-2022 10:46-0400 Body weight 73.03 kg Joana Ocampo SKEINER.CNM Work Phone: [facility] 08-17-2022 10:46-0400 Diastolic blood pressure 68 mm[Hg] Joana Ocampo SKEINER.CNM Work Phone: [facility] 08-17-2022 10:46-0400 Systolic blood pressure 110 mm[Hg] Joana Ocampo SKEINER.CNM Work Phone: [facility] 07-20-2022 08:46-0400 Body weight 72.39 kg Joanajacob Ocampo SKEINER.CNM Work Phone: [facility] 07-20-2022 08:46-0400 Diastolic blood pressure 60 mm[Hg] Joana Ocampo SKEINER.CNM Work Phone: [facility] 07-20-2022 08:46-0400 Systolic blood pressure 102 mm[Hg] Joana Ocampo SKEINER.CNM Work Phone: [facility] 03-28-2022 13:25-0500 Body height 165.1 cm Joana Ocampo SKEINER.CNM Work Phone: [facility] 03-28-2022 13:25-0500 Body weight 72.76 kg Joanajacob Ocampo SKEINER.CNM Work Phone: [facility] 03-28-2022 13:25-0500 Diastolic blood pressure 62 mm[Hg] Joana Ocampo SKEINER.CNM Work Phone: [facility] 03-28-2022 13:25-0500 Systolic blood pressure 104 mm[Hg] Joana Ocampo SKEINER.CNM Work Phone: [facility] Encounters Encounter Date Encounter Type Care Provider Facility Start: 10-19-2023 End: 10-19-2023 ambulatory DEL HERNANDEZ Facility:[facility] Start: 10-19-2023 End: 10-19-2023 Patient encounter procedure Perlita LAWRENCE Work Phone: [facility] Comment on above: Fever, unspecified f ever cause (Primary Dx); URI, acute Start: 10-11-2023 End: 10-11-2023 ambulatory JOANA OCAMPO Facility:[facility] Start: 10-11-2023 End: 10-11-2023 Patient encounter procedure Joana Ocampo APRN.CNM Work Phone: OB/Gynecology Comment on above: Encounter for gyneco logical examination (general) (routine) without abnormal findings (Primary Dx); Surveillance for control, vasectomy Start: 10-11-2023 End: 10-11-2023 Patient encounter status Joana Terrence DICKENSN.CNM Work Phone: [facility] Start: 05-04-2023 End: 05-04-2023 ambulatory JOANA TERRENCE Facility:[facility] Start: 03-31-2023 End: 03-31-2023 [facility] JOANA OCAMPO Facility:[facility] Start: 03-31-2023 End: 03-31-2023 Patient encounter procedure Joana Terrence SKEINER.CNM Work Phone: OB/Gynecology Comment on above: care and examination (Primary Dx); History of gestational diabetes Start: 02-16-2023 ambulatory Mariam tan APRN.CNM Work Phone: OB/Gynecology Comment on above: Ob Delivery Note Start: 02-13-2023 End: 02-13-2023 [facility] Facility:[facility] Start: 02-13-2023 End: 02-13-2023 Patient encounter procedure Dental Hygiene Instructor [facility] Work Phone: OB/Gynecology Comment on above: GDM, class A2 (Prima ry Dx); Multigravida of advanced maternal age in third trimester; 38 weeks gestation of Start: 02-10-2023 End: 02-10-2023 [facility] Facility:[facility] Start: 02-06-2023 End: 02-06-2023 [facility] Facility:[facility] Start: 02-06-2023 End: 02-06-2023 Patient encounter procedure Dental Hygiene Instructor [facility] Work Phone: OB/Gynecology Comment on above: GDM, class A2 (Prima ry Dx); Multigravida of advanced maternal age in third trimester; 37 weeks gestation of Start: 02-02-2023 E-mail encounter fro m caregiver [facility] Start: 02-02-2023 Patient encounter procedure [facility] Provider OB/Gynecology Comment on above: Insulin Teaching / A ppointment times Start: 02-02-2023 Telephone encounter Mariam savage SKEINER.CNM Work Phone: OB/Gynecology Comment on above: Patient Update Start: 02-02-2023 End: 02-02-2023 ambulatory MARIAM COYLE Facility:[facility] Start: 01-20-2023 End: 01-20-2023 [facility] Facility:[facility] Start: 01-20-2023 End: 01-20-2023 Patient encounter procedure Zion Epstein MD Work Phone: OB/Gynecology Comment on above: 35 weeks gestation o f (Primary Dx); Multigravida of advanced maternal age in third trimester; Gestational diabetes mellitus, class A1 Start: 01-03-2023 End: 01-03-2023 Patient encounter procedure Ana Cristina Rae MD Work Phone: OB/Gynecology Comment on above: Multigravida of adva nced maternal age in third trimester (Primary Dx); Gestational diabetes mellitus, class A1; 32 weeks gestation of Start: 01-03-2023 End: 01-03-2023 [facility] Facility:[facility] Start: 12-19-2022 End: 12-19-2022 [facility] Start: 12-19-2022 End: 12-19-2022 Patient encounter procedure Mariam Coyle SKEINER.CNM Work Phone: OB/Gynecology Comment on above: 30 weeks gestation o f (Primary Dx) Start: 12-07-2022 ambulatory Mariam Koch s SKEINER.CNM Work Phone: OB/Gynecology Comment on above: Update Start: 12-01-2022 Telephone encounter Mariam savage SKEINER.CNM Work Phone: OB/Gynecology Comment on above: Results Start: 11-30-2022 End: 11-30-2022 Orders Only Mariam Coyle SKEINER.CNM Work Phone: OB/Gynecology Comment on above: Elevated glucose (Pr imary Dx) Start: 11-17-2022 Telephone encounter Suze vasquez MD Work Phone: OB/Gynecology Comment on above: OB Bee Sting Start: 10-24-2022 End: 10-25-2022 ambulatory JOANA OCAMPO Facility:[facility] Start: 10-24-2022 End: 10-24-2022 Patient encounter procedure Joana Ocampo APRN.CNM Work Phone: OB/Gynecology Comment on above: 22 weeks gestation o f (Primary Dx) Start: 09-19-2022 End: 09-19-2022 Patient encounter procedure Joana Ocampo APRN.CNM Work Phone: OB/Gynecology Comment on above: 17 weeks gestation o f (Primary Dx) Start: 08-17-2022 End: 08-17-2022 Patient encounter procedure Joana Ocampo APRN.CNM Work Phone: OB/Gynecology Comment on above: 11 weeks gestation o f (Primary Dx); Advanced maternal age in multigravida, first trimester Start: 08-01-2022 End: 08-01-2022 Patient encounter procedure Ana Cristina Rae MD Work Phone: OB/Gynecology Comment on above: with uncer tain dates in first trimester (Primary Dx) 7 weeks gestation of Start: 07-20-2022 End: 07-20-2022 Patient encounter procedure Joana Ocampo APRN.CNM Work Phone: OB/Gynecology Comment on above: 7 weeks gestation of (Primary Dx); History of gestational diabetes mellitus; History of macrosomia in infant in prior , currently Start: 07-10-2022 ambulatory Joana Ocampo APRN.CNM Work Phone: OB/Gynecology Comment on above: Current issue Start: 03-28-2022 End: 03-28-2022 Patient encounter procedure Joana Ocampo APRN.CNM Work Phone: OB/Gynecology Comment on above: Encounter for gyneco logical examination (general) (routine) without abnormal findings (Primary Dx); Diastasis recti; control counseling; Evaluation for contraception barrier or spermicide Start: 03-28-2022 End: 03-28-2022 Patient encounter status Joana Ocampo APRN.CNM Work Phone: OB/Gynecology Procedures Date Procedure Procedure Detail Performing Clinician Start: 10-19-2023 [facility] A MOLECULAR (POC) Perlita LAWRENCE Work Phone: Start: 02-13-2023 biophysical pr ofile non-stress testing Mariam Coyle SKEINER.CNM Work Phone: Start: 02-06-2023 biophysical pr ofile non-stress testing Mariam Coyle SKEINER.CNM Work Phone: Start: 01-20-2023 URINE OB DIP B/O Sonya Epstein MD Work Phone: Start: 01-03-2023 URINE OB DIP B/O Ana Cristina Rae MD Work Phone: Start: 12-19-2022 URINE OB DIP B/O Va Coyle APRN.CNM Work Phone: Start: 10-24-2022 URINE OB DIP B/O Basil Ocampo APRN.CNM Work Phone: Start: 09-19-2022 URINE OB DIP B/O Basil Ocampo APRN.CNM Work Phone: Start: 08-01-2022 Us preg uterus after 1st trimest 05/08 gestation Joana Ocampo APRN.CNM Work Phone: Plan of Treatment Date Care Activity Detail Author Start: 11-30-2032 Urine microalbumin profile [facility] Start: 08-04-2030 Urine microalbumin profile DTAP,TDAP,TD (4 - Td or Tdap) [facility] Start: 07-21-2027 HPV TESTING HPV TESTING [facility] Start: 07-21-2027 PAP TESTING PAP TESTING [facility] Start: 07-21-2027 Screening for malignant neoplasm of cervix [facility] Start: 10-11-2024 End: 06-06-2025 Patient encounter procedure 10/11/2024 10:45 AM EDT Office Visit OB/Gynecology [address] [place] [address] Joana Ocampo APRN.CN [address] [place] [address] Annual Exam OB/Gynecology Comment on above: Annual Exam Start: 05-08-2023 Behavioral Health Screening Behavioral Health Screening [facility] Start: 03-31-2023 End: 06-30-2023 GLUC SENA, 2-HR NON-GEST, 75 GM, FASTING GLUC SENA, 2-HR NON-GEST, 75 GM, FASTING Lab Routine History of gestational diabetes Expected: 03/31/2023, Expires: 06/30/2023 [facility] Work Phone: Comment on above: Expected: 03/31/2023 , Expires: 06/30/2023 Start: 02-07-2023 HPV TESTING HPV TESTING [facility] Start: 02-07-2023 PAP TESTING PAP TESTING [facility] Start: 01-06-2023 Covid-19 Vaccine () Covid-19 Vaccine () [facility] Start: 01-06-2023 Influenza vaccination C [facility] Start: 01-03-2023 End: 01-04-2024 OBSTETRIC ULTRASOUND WHI OBSTETRIC ULTRASOUND I Anc Imaging Routine 32 weeks gestation of Multigravida of advanced maternal age in third trimester Gestational diabetes mellitus, class A1 Expected: 01/03/2023, Expires: 01/04/2024 [facility] Work Phone: Comment on above: Expected: 01/03/2023 , Expires: 01/04/2024 Start: 12-07-2022 End: 02-06-2023 GEST GLUC SENA, 3-HR, 100 GM, FASTING GEST GLUC SENA, 3-HR, 100 GM, FASTING Lab Routine Elevated glucose Expected: 12/07/2022, Expires: 02/06/2023 [facility] Work Phone: Comment on above: Expected: 12/07/2022 , Expires: 02/06/2023 Start: 10-24-2022 End: 12-24-2022 CBC W Auto Differential panel - Blood CBC + DIFF Lab Routine 22 weeks gestation of Expected: 10/24/2022, Expires: 12/24/2022 [facility] Work Phone: Comment on above: Expected: 10/24/2022 , Expires: 12/24/2022 Start: 10-24-2022 End: 12-24-2022 GEST GLUC SCREEN, 1-HR, 50 GM, NON-FASTING GEST GLUC SCREEN, 1-HR, 50 GM, NON-FASTING Lab Routine 22 weeks gestation of Expected: 10/24/2022, Expires: 12/24/2022 [facility] Work Phone: Comment on above: Expected: 10/24/2022 , Expires: 12/24/2022 Start: 10-24-2022 End: 12-24-2022 SYPHILIS TOTAL W/REFLEX SYPHILIS TOTAL W/REFLEX Lab Routine 22 weeks gestation of Expected: 10/24/2022, Expires: 12/24/2022 [facility] Work Phone: Comment on above: Expected: 10/24/2022 , Expires: 12/24/2022 Start: 08-17-2022 End: 08-18-2023 OBSTETRIC ULTRASOUND WHI OBSTETRIC ULTRASOUND WHI Anc Imaging Routine 11 weeks gestation of Advanced maternal age in multigravida, first trimester Expected: 08/17/2022, Expires: 08/18/2023 [facility] Work Phone: Comment on above: Expected: 08/17/2022 , Expires: 08/18/2023 Start: 07-20-2022 End: 09-19-2022 CBC panel - Blood by Automated count CBC Lab Routine 7 weeks gestation of Expected: 07/20/2022, Expires: 09/19/2022 [facility] Work Phone: Comment on above: Expected: 07/20/2022 , Expires: 09/19/2022 Start: 07-20-2022 End: 09-19-2022 Hemoglobin A1c in Blood HGB A1C Lab Routine 7 weeks gestation of Expected: 07/20/2022, Expires: 09/19/2022 [facility] Work Phone: Comment on above: Expected: 07/20/2022 , Expires: 09/19/2022 Start: 07-20-2022 End: 09-19-2022 HEMOGLOBIN EVALUATION CASCADE HEMOGLOBIN EVALUATION CASCADE Lab Routine 7 weeks gestation of Expected: 07/20/2022, Expires: 09/19/2022 [facility] Work Phone: Comment on above: Expected: 07/20/2022 , Expires: 09/19/2022 Start: 07-20-2022 End: 09-19-2022 Hepatitis B virus surface Ag [Presence] in Serum HEP B SURF AG SCRN Lab Routine 7 weeks gestation of Expected: 07/20/2022, Expires: 09/19/2022 [facility] Work Phone: Comment on above: Expected: 07/20/2022 , Expires: 09/19/2022 Start: 07-20-2022 End: 09-19-2022 Hepatitis C virus Ab [Presence] in Serum HEP C AB IA W/CONF SCRN Lab Routine 7 weeks gestation of Expected: 07/20/2022, Expires: 09/19/2022 [facility] Work Phone: Comment on above: Expected: 07/20/2022 , Expires: 09/19/2022 Start: 07-20-2022 End: 09-19-2022 HIV 1+2 Ab [Presence] in Serum or Plasma by Immunoassay HIV 1 2 COMBO(AG/AB),WITH REFLEX TO DIFFERENTIATION Lab Routine 7 weeks gestation of Expected: 07/20/2022, Expires: 09/19/2022 [facility] Work Phone: Comment on above: Expected: 07/20/2022 , Expires: 09/19/2022 Start: 07-20-2022 End: 07-21-2023 OBSTETRIC ULTRASOUND WHI OBSTETRIC ULTRASOUND WHI Anc Imaging Routine 7 weeks gestation of Expected: 07/20/2022, Expires: 07/21/2023 [facility] Work Phone: Comment on above: Expected: 07/20/2022 , Expires: 07/21/2023 Start: 07-20-2022 End: 09-19-2022 RUBELLA IGG AB RUBELLA IGG AB Lab Routine 7 weeks gestation of Expected: 07/20/2022, Expires: 09/19/2022 [facility] Work Phone: Comment on above: Expected: 07/20/2022 , Expires: 09/19/2022 Start: 07-20-2022 End: 09-19-2022 SYPHILIS TOTAL W/REFLEX SYPHILIS TOTAL W/REFLEX Lab Routine 7 weeks gestation of Expected: 07/20/2022, Expires: 09/19/2022 [facility] Work Phone: Comment on above: Expected: 07/20/2022 , Expires: 09/19/2022 Start: 07-20-2022 End: 09-19-2022 TYPE + SCREEN TYPE + SCREEN Blood Bank Routine 7 weeks gestation of Expected: 07/20/2022, Expires: 09/19/2022 [facility] Work Phone: Comment on above: Expected: 07/20/2022 , Expires: 09/19/2022 Start: 05-08-2022 DEPRESSION ASSESSMENT DEPRESSION ASS ESSMENT [facility] Start: 12-30-2021 COVID-19 VACCINE (5 - Booster for Moderna series) COVID-19 VACCINE (5 - Booster for Moderna series) [facility] Start: 12-30-2021 COVID-19 VACCINE (5 - Moderna series) COVID-19 VACCINE (5 - Moderna series) [facility] Start: 05-08-2021 DEPRESSION ASSESSMENT DEPRESSION ASS ESSMENT [facility] Start: 10-02-2006 Hepatitis B Vaccine (1 of 3 - 19+ 3-dose series) Hepatitis B Vaccine (1 of 3 - 19+ 3-dose series) [facility] Start: 1987 HEPATITIS B (1 of 3 - 3-dose series) HEPATITIS B (1 of 3 - 3-dose series) [facility] Start: 1987 Hepatitis B Vaccine (1 of 3 - 3-dose series) Hepatitis B Vaccine (1 of 3 - 3-dose series) [facility] Bacteria identified in Urine by Culture URINE CULTURE Microbiology Routine 7 weeks gestation of 07/20/2022 9:38 AM EDT [facility] Work Phone: BACTERIAL VAGINOSIS NAAT BACTERIAL VAGINOSIS NAAT Lab Routine Encounter for gynecological examination (general) (routine) without abnormal findings 10/11/2023 3:29 PM EDT [facility] Work Phone: CLAUDIO/TRICHOMONAS NAAT CLAUDIO/TRICHOMONAS NAAT Lab Routine Encounter for gynecological examination (general) (routine) without abnormal findings 10/11/2023 3:29 PM EDT [facility] Chlamydia trachomatis+Neisseria gonorrhoeae DNA [Presence] in Unspecified specimen by JULIETH with probe detection GC/CHLAMYDIA DNA DET Lab Routine 7 weeks gestation of 07/20/2022 9:38 AM EDT [facility] Work Phone: PAP TEST PAP TEST Lab [facility] 7 weeks gestation of 07/20/2022 12:04 PM EDT [facility] Work Phone: URINE OB DIP B/O URINE OB DIP B/ O Lab Routine 11 weeks gestation of Ordered: 08/17/2022 [facility] Work Phone: Comment on above: Ordered: 08/17/2022 [facility] Immunizations Immunization Date Immunization Notes Care Provider Akosua huynh 11-30-2022 tetanus toxoid, redu madai diphtheria toxoid, and acellular pertussis vaccine, adsorbed Mariam Coyle SKEINER.CNM Work Phone: [facility] 03-23-2022 influenza virus vaccine, unspecified formulation Zion Epstein MD Work Phone: [facility] 08-04-2020 tetanus toxoid, redu madai diphtheria toxoid, and acellular pertussis vaccine, adsorbed Joana Ocampo SKEINER.CNM Work Phone: [facility] 08-09-2018 tetanus toxoid, redu madai diphtheria toxoid, and acellular pertussis vaccine, adsorbed Joana Ocampo SKEINER.CN Work Phone: [facility] Work Phone: 04-29-2016 tetanus toxoid, redu madai diphtheria toxoid, and acellular pertussis vaccine, adsorbed Joana Ocampo SKEINER.CNM Work Phone: [facility] Work Phone: Payers Date Payer Category Payer Unknown KATHERINE EDMONDS PPO [id number] 2015-Present [phone] [address] [place] [address] PPO [id number] 2015 Unknown [id number] Social History Date Type Detail Facility Start: 03-28-2022 Tobacco smoking stat [facility] Never smoked tobacco [facility] Start: 03-28-2022 Tobacco use and exposure Smokeless tobacco non-user [facility] Start: 03-28-2022 End: 10-19-2023 Alcohol intake Ex-drinker (finding) [facility] Start: 02-27-2020 History SDOH Financial 5 [facility] Start: 02-27-2020 History SDOH Food Worry 1 [facility] Start: 02-27-2020 History SDOH Transpo rt Med 2 [facility] Start: 02-27-2020 Education 17 [facility] Start: 12-10-2015 Alcohol Comment Seldom, not wh ile [facility] Start: 1985 Sex Assigned At Not on file C [facility] Start: 06-02-2022 [facility] Start: 09-19-2022 End: 10-24-2022 History of Social function [facility] Work Phone: Start: 09-19-2022 End: 10-24-2022 Tobacco use panel [facility] Work Phone: The thought of rafi guillaume myself has occurred to me Never [facility] Work Phone: National Score (1-10 0), lower number is lower risk 52 [facility] Work Phone: (I/We) worried wheth er (my/our) food would run out before (I/we) got money to buy more. Never true [facility] Work Phone: Medical Equipment Procedure Code Equipment Code Equipment Origin al Text Equipment Identifier Dates 1 Each daily at bedtime. Start: 02-02-2023 End: 03-31-2023 Comment on above: 1 Each daily at bedt anthony. Goals Date Patient Goal Desired Activity /State Personal health goal Clinical Notes 10-14-2020 to 10-19-2023 Patient InstructionsPerlita Sloan PA - 10/19/2023 7:06 PM EDTAddendum Note - Joana Ocampo APRN.CNM - 10/11/2023 3:06 PM EDTAddendum Note - Sriram Knapp MA - 10/11/2023 12:42 PM EDT Note Date & Type Note Facility 10-19-2023 Instructions Perlita Sloan PA - 10/19/2023 7:08 PM EDT Rest, increase water intake Motrin or Tylenol as needed for fever or pain. Salt water gargles, chloraseptic spray or lozenges as needed for sore throat. Warm beverages, honey. Nasal saline spray as needed Cool mist humidifier at night A cold normally lasts 7-10 days. If your symptoms are lasting longer, develop fever, or worsening by that time instead of improving then return to clinic or follow up with PCP for re-evaluation. Tylenol (generic acetaminophen) 500 mg-2 tabs every 8 hrs. as needed for fever and aches Ibuprofen 600 mg (3-200mg tablets) every 6 hours -Mucinex (generic is fine) Guaifenesin 1200 mg twice daily to help with cough and to thin out mucus documented in this encounter [facility] 10-19-2023 Note HNO ID: [id number] Author: PERLITA SLOAN PA Service: ? Author Type: Physician Street Car Inspector Type: Progress Notes Filed: 10/19/2023 19:12 Note Text: This note was created using NoteWriter. Subjective Lori Agarwal is a 38 year old female. HPI 38-year-old female presents for cough, fever, body aches, headache x 3 days. Patient states Monday she started getting sick. She has had cough, body aches, headache and fever. Tmax 101 ?F. She denies any sore throat. She states that her kids had strep about a month and a half ago. She states 2 of her daughters have a cough currently. Patient has not had any vomiting or diarrhea. No chest pain or shortness of breath. Patient has taken Motrin which has helped with her symptoms today. She is breast-feeding. No other complaint. PAST MEDICAL HISTORY Diagnosis Date anxiety/depression Dysmenorrhea fracture arm basketball accident History of gestational diabetes 07/19/2018 PAST SURGICAL HISTORY Procedure Laterality Date EXTRACTION, ERUPTED TOOTH OR EXPOSED ROOT (ELEVATION AND/OR FORCEPS REMOVAL) 12/2007 REMOVE TONSIL AND ADENOI UNDER AGE 14 1995 ALLERGIES Patient has no known allergies. MEDICATIONS acetaminophen (TYLENOL ORAL) Take by mouth. Lactobacillus acidophilus (PROBIOTIC ORAL) Take by mouth. [id number] tab Take 1 tablet by mouth. FAMILY HISTORY Problem Relation Age of Onset Arthritis Father Heart Father Murmur Cancer Father Arthritis Mother Maternal Grandparents-psoriatic and rhuematoid Hypertension Mother other (kidney stones) Mother Hypertension Brother other (kidney stones) Sister other (gestational diabetes) Sister Cancer Maternal Grandfather Melanoma Hypertension Maternal Grandfather Heart Maternal Grandfather PA Ischemic Heart Disease Maternal Grandmother Cancer Paternal Grandfather other (Penicillin allergy) Daughter No Known Problems Daughter Social History Tobacco Use Smoking status: Never Smokeless tobacco: Never Vaping Use Vaping Use: Never used Substance Use Topics Alcohol use: Not Currently Comment: Seldom, not while Drug use: No Review of Systems Constitutional: Positive for fever. Negative for chills. HENT: Negative for congestion, ear pain and sore throat. Respiratory: Positive for cough. Negative for shortness of breath. Cardiovascular: Negative for chest pain. Gastrointestinal: Negative for diarrhea and vomiting. Musculoskeletal: Positive for myalgias. Objective BP 105/70 Pulse 82 Temp 36.9 ?C (98.5 ?F) Resp 20 Wt 72 kg (158 lb 11.7 oz) LMP 05/30/2022 (Approximate) SpO2 98% Yes BMI 26.41 kg/m? Physical Exam Vitals and nursing note reviewed. Constitutional: General: She is not in acute distress. Appearance: Normal appearance. She is not toxic-appearing. HENT: Right Ear: Tympanic membrane and ear canal normal. Left Ear: Tympanic membrane and ear canal normal. Nose: Nose normal. Mouth/Throat: Mouth: Mucous membranes are moist. Pharynx: Posterior oropharyngeal erythema present. No oropharyngeal exudate. Tonsils: 1+ on the right. 1+ on the left. Eyes: Conjunctiva/sclera: Conjunctivae normal. Cardiovascular: Rate and Rhythm: Normal rate and regular rhythm. Pulmonary: Effort: Pulmonary effort is normal. Breath sounds: Normal breath sounds. No wheezing, rhonchi or rales. Neurological: Mental Status: She is alert. Assessment and Plan ASSESSMENT/PLAN: 1. Fever, unspecified fever cause - ICD9: 780.60, ICD10: R50.9 (primary diagnosis) - STREP A MOLECULAR (POC)-negative -Suspect viral. -Tylenol/Motrin, fluids, rest. 2. URI, acute - ICD9: 465.9, ICD10: J06.9 - Discussed viral etiology and rationale for treatment. - Symptomatic treatment with prn analgesia - Supportive care with fluids and rest - The patient may also use warm salt water gargles, throat lozenges and/or OTC throat spray as needed -Tylenol/Motrin as needed for pain/fever. -May take Mucinex to help with chest congestion Diagnosis and treatment plan were discussed and questions were answered to the patient's satisfaction. Pt acknowledged understanding of concepts and follow up plan. Specific signs and symptoms that would indicate the need for higher level of care were discussed in detail warranting prompt ER evaluation. HOWARD Mills [facility] 10-19-2023 History of Presen t illness Narrative This note was created using NoteWriter. Subjective Lori Agarwal is a 38 year old female. HPI 38-year-old female presents for cough, fever, body aches, headache x 3 days. Patient states Monday she started getting sick. She has had cough, body aches, headache and fever. Tmax 101 F. She denies any sore throat. She states that her kids had strep about a month and a half ago. She states 2 of her daughters have a cough currently. Patient has not had any vomiting or diarrhea. No chest pain or shortness of breath. Patient has taken Motrin which has helped with her symptoms today. She is breast-feeding. No other complaint. PAST MEDICAL HISTORY Diagnosis Date anxiety/depression Dysmenorrhea fracture arm basketball accident History of gestational diabetes 07/19/2018 PAST SURGICAL HISTORY Procedure Laterality Date EXTRACTION, ERUPTED TOOTH OR EXPOSED ROOT (ELEVATION AND/OR FORCEPS REMOVAL) 12/2007 REMOVE TONSIL AND ADENOI UNDER AGE 14 1996 ALLERGIES Patient has no known allergies. MEDICATIONS acetaminophen (TYLENOL ORAL) Take by mouth. Lactobacillus acidophilus (PROBIOTIC ORAL) Take by mouth. Jduemgcy-Me-Xcq-Fe-FA tab Take 1 tablet by mouth. FAMILY HISTORY Problem Relation Age of Onset Arthritis Father Heart Father Murmur Cancer Father Arthritis Mother Maternal Grandparents-psoriatic and rhuematoid Hypertension Mother other (kidney stones) Mother Hypertension Brother other (kidney stones) Sister other (gestational diabetes) Sister Cancer Maternal Grandfather Melanoma Hypertension Maternal Grandfather Heart Maternal Grandfather PA Ischemic Heart Disease Maternal Grandmother Cancer Paternal Grandfather other (Penicillin allergy) Daughter No Known Problems Daughter Social History Tobacco Use Smoking status: Never Smokeless tobacco: Never Vaping Use Vaping Use: Never used Substance Use Topics Alcohol use: Not Currently Comment: Seldom, not while Drug use: No Review of Systems Constitutional: Positive for fever. Negative for chills. HENT: Negative for congestion, ear pain and sore throat. Respiratory: Positive for cough. Negative for shortness of breath. Cardiovascular: Negative for chest pain. Gastrointestinal: Negative for diarrhea and vomiting. Musculoskeletal: Positive for myalgias. Objective BP 105/70 Pulse 82 Temp 36.9 C (98.5 F) Resp 20 Wt 72 kg (158 lb 11.7 oz) LMP 05/30/2022 (Approximate) SpO2 98% Yes BMI 26.41 kg/m Physical Exam Vitals and nursing note reviewed. Constitutional: General: She is not in acute distress. Appearance: Normal appearance. She is not toxic-appearing. HENT: Right Ear: Tympanic membrane and ear canal normal. Left Ear: Tympanic membrane and ear canal normal. Nose: Nose normal. Mouth/Throat: Mouth: Mucous membranes are moist. Pharynx: Posterior oropharyngeal erythema present. No oropharyngeal exudate. Tonsils: 1+ on the right. 1+ on the left. Eyes: Conjunctiva/sclera: Conjunctivae normal. Cardiovascular: Rate and Rhythm: Normal rate and regular rhythm. Pulmonary: Effort: Pulmonary effort is normal. Breath sounds: Normal breath sounds. No wheezing, rhonchi or rales. Neurological: Mental Status: She is alert. Assessment and Plan ASSESSMENT/PLAN: 1. Fever, unspecified fever cause - ICD9: 780.60, ICD10: R50.9 (primary diagnosis) - STREP A MOLECULAR (POC)-negative -Suspect viral. -Tylenol/Motrin, fluids, rest. 2. URI, acute - ICD9: 465.9, ICD10: J06.9 - Discussed viral etiology and rationale for treatment. - Symptomatic treatment with prn analgesia - Supportive care with fluids and rest - The patient may also use warm salt water gargles, throat lozenges and/or OTC throat spray as needed -Tylenol/Motrin as needed for pain/fever. -May take Mucinex to help with chest congestion Diagnosis and treatment plan were discussed and questions were answered to the patient's satisfaction. Pt acknowledged understanding of concepts and follow up plan. Specific signs and symptoms that would indicate the need for higher level of care were discussed in detail warranting prompt ER evaluation. HOWARD Mills documented in this encounter [facility] 10-11-2023 Miscellaneous Notes Addended by: JOANA OCAMPO on: 10/11/2023 03:06 PM Modules accepted: Orders Addended by: SRIRAM KNAPP on: 10/11/2023 12:42 PM Modules accepted: Orders documented in this encounter [facility] 10-11-2023 Note Addended by: JOANA OCAMPO on: 10/11/2023 03:06 PM Modules accepted: Orders [facility] 10-11-2023 Note Addended by: SRIRAM KNAPP on: 10/11/2023 12:42 PM Modules accepted: Orders [facility] 10-11-2023 Note HNO ID: [id number] Author: JOANA OCAMPO APRN.CNM Service: ? Author Type: Human Resources Operations Director Type: Progress Notes Filed: 10/11/2023 12:40 Note Text: Telephone Quotation Clerk offered: Patient declinesSwapna Sandoval is a 38 year old who presents for an annual gynecologic exam without complaints. Menses: cycles every 30 days and 5 days of flow. Contraception: vasectomy HPV vaccine: No Last Pap: 07/26/2022 normal HPV: 07/25/2022 negative History of abnormal pap: No Last mammogram: never Sexually active: Yes Pain with intercourse: No Postcoital bleeding: No OB History T4 L4 SAB0 IAB0 Ectopic0 Multiple0 Live Births4 Fast Brim Pouncer History LMP: 05/30/2022 (Approximate), Unknown Age at Menarche: Age at First : Age at Menopause: Fast Brim Pouncer History Comments: Sexual Activity: Yes; Male Contraception: [...] Melanoma Hypertension Maternal Grandfather Heart Maternal Grandfather PA Ischemic Heart Disease Maternal Grandmother Cancer Paternal [...] retraction. Allergies and current medication updated:Yes EXAM: BP 100/60 Ht 5' 5 (1.65m) Wt 160 lb (72.6kg) LMP 05/30/2022 BMI 26.63 kg/(m2). GENERAL: pleasant, female in no apparent distress HEENT: Normocephalic, atraumatic, mucus membranes moist, and no lesions NECK: Supple, full range of motion, no adenopathy, and thyroid normal DERMATOLOGY: Normal, without lesions, non-icteric, and non-hirsute BREAST: soft, non-tender, symmetric, no dominant mass, normal nipple-areolar complex, no lymphadenopathy, and no nipple discharge CHEST: Normal inspiratory effort ABDOMEN: soft, non-tender, and no masses PELVIC: external genitalia normal, normal Bartholin's glands, urethra, Marine's glands, no vulvar lesions, no cervical lesions, [...] for annual exam in one year. 2. Surveillance for control, vasectomy - ICD9: V25.49, ICD10: Z30.8 1) Health maintenance: Pap/HPV up to date. Nutrition, exercise and routine health maintenance exams reviewed. Calcium/Vitamin D supplementation information provided. Lipids/glucose: followed by PCP Vitamin D: followed by PCP 2) Contraception: vasectomy. Contraceptive options reviewed and information provided. 3) STD screening: Declined STD check. 4) Follow up one year or sooner as needed [facility] History of Presen t illness Narrative Telephone Quotation Clerk offered: Patient declines. Lori is a 38 year old who presents for an annual gynecologic exam without complaints. Menses: cycles every 30 days and 5 days of flow. Contraception: vasectomy HPV vaccine: No Last Pap: 07/26/2022 normal HPV: 07/25/2022 negative History of abnormal pap: No Last mammogram: never Sexually active: Yes Pain with intercourse: No Postcoital bleeding: No OB History T4 L4 SAB0 IAB0 Ectopic0 Multiple0 Live Births4 Fast Brim Pouncer History LMP: 05/30/2022 (Approximate), Unknown Age at Menarche: Age at First : Age at Menopause: Fast Brim Pouncer History Comments: Sexual Activity: Yes; Male Contraception: [...] Melanoma Hypertension Maternal Grandfather Heart Maternal Grandfather PA Ischemic Heart Disease Maternal Grandmother Cancer Paternal [...] retraction. Allergies and current medication updated:Yes EXAM: BP 100/60 Ht 5' 5 (1.65m) Wt 160 lb (72.6kg) LMP 05/30/2022 BMI 26.63 kg/(m^2). GENERAL: pleasant, female in no apparent distress HEENT: Normocephalic, atraumatic, mucus membranes moist, and no lesions NECK: Supple, full range of motion, no adenopathy, and thyroid normal DERMATOLOGY: Normal, without lesions, non-icteric, and non-hirsute BREAST: soft, non-tender, symmetric, no dominant mass, normal nipple-areolar complex, no lymphadenopathy, and no nipple discharge CHEST: Normal inspiratory effort ABDOMEN: soft, non-tender, and no masses PELVIC: external genitalia normal, normal Bartholin's glands, urethra, Marine's glands, no vulvar lesions, no cervical lesions, [...] for annual exam in one year. 2. Surveillance for control, vasectomy - ICD9: V25.49, ICD10: Z30.8 1) Health maintenance: Pap/HPV up to date. Nutrition, exercise and routine health maintenance exams reviewed. Calcium/Vitamin D supplementation information provided. Lipids/glucose: followed by PCP Vitamin D: followed by PCP 2) Contraception: vasectomy. Contraceptive options reviewed and information provided. 3) STD screening: Declined STD check. 4) Follow up one year or sooner as needed Joana Ocampo APRN.CNM documented in this encounter [facility] 03-31-2023 Note HNO ID: [id number] Author: Joana Ocampo APRN.CNM Service: ? Author Type: Human Resources Operations Director Type: Progress Notes Filed: 03/31/2023 10:25 [...] Menstrual pattern prior to : Regular periods [place] since delivery: Not resumed Depression: denies, admits [...] harming myself has occurred to me. Never [place] Depression Scale Total 7 Feeling nervous, anxious [...] Melanoma Hypertension Maternal Grandfather Heart Maternal Grandfather PA Ischemic Heart Disease Maternal Grandmother Cancer Paternal [...] external genitalia normal, normal Bartholin's glands, urethra, Marine's glands, no vulvar lesions, no cervical lesions, [...] for pelvic floor physical therapy for DR Joana Ocampo APRN.[facility] 03-31-2023 History of Presen t illness Narrative VISIT Lori Agarwal is a 37 year old year old here for visit. Delivery Summary: Date: 02/15/2023 Time: 9:58 Sex: M Name: Jared Weight: 8# 8oz Outcome: Anesthesia: Epidural Delivered by: CP Perineal repair: 1st degree lac. ROS/ Recovery: Feeding: Breast feeding problems: None Menses since delivery: None Menstrual pattern prior to : Regular periods [place] since delivery: Not resumed Depression: denies, admits [...] harming myself has occurred to me. Never [place] Depression Scale Total 7 Feeling nervous, anxious [...] Melanoma Hypertension Maternal Grandfather Heart Maternal Grandfather PA Ischemic Heart Disease Maternal Grandmother Cancer Paternal [...] external genitalia normal, normal Bartholin's glands, urethra, Marine's glands, no vulvar lesions, no cervical lesions, [...] for pelvic floor physical therapy for DR Joana Ocampo APRN.CNM documented in this encounter [facility] 02-16-2023 Note HNO ID: [id number] Author: Misty Salvador RN Service: ? Author Type: ? Type: Progress Notes Filed: 02/16/2023 8:20 AM Note Text: Patient delivered via by Fransico on 02/15/23 at [facility]. See OB history. Misty Salvador RN [facility] 02-16-2023 History of Presen t illness Narrative Patient delivered via by Fransico on 02/15/23 at [facility]. See OB history. Misty Salvador RN documented in this encounter [facility] 02-10-2023 Note HNO ID: [id number] Author: Suze Butt MD Service: ? Author [...] None Interpretation: Reactive SIGNATURE: Suze Butt DO [facility] 02-02-2023 Miscellaneous Notes Rx signed. Mariam Coyle APRN.CNM Patient notified. Scheduled her appointments for the next 2 weeks. Will send her a DGSE message with appointment times and insulin teaching. Patient declined a visit with art educator at this time. Prescriptions pending for [...] cannot be completed. Thank you Mariam Coyle APRN.CNM documented in this encounter [facility] 02-02-2023 History of Past i llness Narrative Problem Noted Date Diagnosed Date Resolved Date GDM, class A2 02/02/2023 03/31/2023 Overview: 02/02/23- 50% of fasting levels elevated. Started on NPH 10 units at bedtime. Mariam Coyle APRN.CNM Multigravida of advanced mat ernal age in third trimester 08/17/2022 03/31/2023 Supervision of high risk pre gnancy in third trimester 10/14/2020 11/30/2020 Excessive growth affec ting management of in third trimester 09/22/2020 12/01/19 Overview: 10/16/20-Fetus is large for gestational age. EFW is 9 lb 12 oz (4426 g), which is at the 99th percentile. Joana Ocampo APRN.CNM 10/01/20- Fetus is large for gestational age with EFW of 7 lb 9 oz, which is at the 98th percentile at 35w3d US. Would recommend delivery at 39 weeks, if fetus remains large for gestational age. Per visit. Joana Ocampo APRN.CNM Abnormal glucose in , antepartum 03/04/2020 11/30/2020 Overview: 03/04/20-Elevated early 1hr GCT 154, 3hr GTT ordered. Joana Ocampo APRN.CNM Uterine size-date discrepanc y, first trimester 03/03/2020 11/30/2020 Overview: 03/03/20- LMP inconsistent with US, formal dating US in 2 weeks. Joana Ocampo APRN.CNM History of gestational diabe tammi in prior , currently 02/27/2020 11/30/2020 Overview: 03/03/20-1hr GCT at NOB visit. Joana Ocampo APRN.CNM 02/27/2020Patient had gestational diabetes with her last . She will plan on doing a 1 hour glucose test at her new OB appointment. TKRN History of gestational diabetes mellitus 10/23/2018 03/03/2020 Gestational diabetes mellitus, class A1 07/19/2018 11/30/2020 Overview: 09/22/20 - LGA on growth US, [facility] recommends delivery at 39 weeks if remains LGA - Vincent Rubio MD 03/19/20-failed 3-hour GTT. History of GDM class A1 with last . 11/19/18 had 2hr GTT at [facility] and normal, lab scanned into chart. Reviewed GDM diagnosis with patient. She feels she is knowledgeable about diagnosis, testing, and diet. Declines consultation with art educator and cigarette tester. She will check fasting blood sugars and 2-hour postprandials 3 times a day and bring to next visit.Joana Ocampo APRN.CNM Elevated glucose 07/16/2018 03/31/2023 Overview: 11/30/22- elevated 1 hour- 3 hour GTT ordered. Mariam Coyle APRN.CNM 07/16/18: 3hr GTT ordered. Ana Cristina Brenner MD Supervision of other normal , antepartum 02/11/2016 03/31/2023 Overview: documented as of this encounter (statuses as of 03/31/2023) [facility]09-15-2023 Miscellaneous Notes* Quick Notes - Zion [...] control Zion Epstein M.D. documented in this encounterMer[facility] Instructions* Patient Instructions* Jocelynn Purvis Ma - 01/20/2023 11:29 AM EDT SEQUENTIAL SCREENINGS The [facility] offers sequential screenings for women who [...] testing. It will require an appointment withour set up technician. This is not an ultrasound performed [...] the above symptoms, contact our office at [phone] and ask to speak with anurse. After hours, you can call doctors registry at [phone] OR call [facility] at [phone] ask to have the doctor home demonstrator paged. If you consider this an emergency, dial 9-1-1 or go to your nearest emergency department. NEED HELP? Are you dealing with a violent or abusive relationship? Are you a victim of rape or sexual assult? Call [facility] ([place]) 24 hour Crisis Hotline: 387.173.8412 or 533-842-5701. MANUAL Your Guide to a Healthy manual is now on-line. Visit [email or web address] to download your free copy documented in this encounterMer[facility]08-29-2023 Miscellaneous Notes* Quick Notes - Ana Cristina Contreras MD - 01/03/2023 2:31 PM EDT DM- Pt doing well today. Denies Vaginal Bleeding, Leaking fluid, or contractions. Pt reports good movement. BS well controlled. Repeat growth us in 4 weeks, pending today. RTO 2 weeks. Kick counts reviewed. Consider IOL 39 weeks. Ana Cristina Brenner MD documented in this encounterMer[facility]08-29-2023 Instructions* Patient Instructions* Evelyn Abraham Ma - 01/03/2023 1:00 PM EDT SEQUENTIAL SCREENINGS The [facility] offers sequential screenings for women who [...] testing. It will require an appointment withour set up technician. This is not an ultrasound performed [...] the above symptoms, contact our office at [phone] and ask to speak with anurse. After hours, you can call doctors registry at [phone] OR call [facility] at [phone] ask to have the doctor home demonstrator paged. If you consider this an emergency, dial 9-1-4 or go to your nearest emergency department. NEED HELP? Are you dealing with a violent or abusive relationship? Are you a victim of rape or sexual assult? Call [facility] ([place]) 24 hour Crisis Hotline: 709.811.9435 or 480-104-9606. MANUAL Your Guide to a Healthy manual is now on-line. Visit [email or web address] to download your free copy documented in this encounterMercy [facility]08-14-2023 Miscellaneous Notes* Quick Notes - Mariam [...] needed. Mariam Coyle APRN.CNM documented in this encounterMercy [facility]08-14-2023 Instructions* Patient Instructions* Sriram Knapp Cma - 12/19/2022 11:11 AM EDT SEQUENTIAL SCREENINGS The [facility] offers sequential screenings for women who [...] testing. It will require an appointment withour set up technician. This is not an ultrasound performed [...] the above symptoms, contact our office at [phone] and ask to speak with anurse. After hours, you can call doctors registry at [phone] OR call [facility] at [phone] ask to have the doctor home demonstrator paged. If you consider this an emergency, dial 9-1-7 or go to your nearest emergency department. NEED HELP? Are you dealing with a violent or abusive relationship? Are you a victim of rape or sexual assult? Call [facility] ([place]) 24 hour Crisis Hotline: 708.949.8087 or 709-277-3226. MANUAL Your Guide to a Healthy manual is now on-line. Visit [email or web address] to download your free copy documented in this encounterMercy [facility]08-02-2023 Miscellaneous Notes* Telephone Encounter - Sanjana Saez RN - 12/07/2022 2:27 PM EDT 28w6d documented in this encounterMercy Health [facility] Hospital07-28-2023 Miscellaneous Notes* Telephone Encounter - Mariam [...] and starttesting. Next visit 12/19/22. Will send Abakan message with updated blood sugars after a [...] placed. Mariam Coyle APRN.CNM documented in this encounterMercy Health [facility]07-26-2023 NoteHNO ID: [id number] Author: Sriram Knapp Cma Service: ? Author Type: ? Type: [...] severely ill: Yes Patient denies history of Guillain-[place] Syndrome (a severe paralytic illness): Yes Tdap Adacel injection was given without incident. See immunizations for details of immunizations administered today. VIS sheet provided: Yes Provider Mariam Coyle CNM was present in office at time of injection. Sriram Knapp [facility]ma[facility]07-[facility]23 Miscellaneous Notes* Telephone Encounter - Sanjana [...] advise. Sanjana Saez RN documented in this encounterMercy [facility]06-19-2023 Miscellaneous Notes* Quick Notes - Joana Ocampo APRN.CNM - 10/24/2022 11:18 AM EDT [...] CBC, RPR next visit 4) Continue ASA Joana Ocampo APRN.CNM documented in this encounterMercy Health [facility] Hospital06-19-2023 Instructions* Patient Instructions* Joana Ocampo APRN.CNM - 10/24/2022 11:09 AM EDT [facility] Physical Therapy [phone] [place] [address] At Home Services: [facility] Physical Therapy: Cheri Uriostegui [phone] [email or web address] Online: [email or web address] SIGNS AND SYMPTOMS OF LABOR 1. Contractions every 10 minutes or more often 2. Clear, pink, or brownish fluid (water) leaking from vagina 3. Feeling that baby is pushing down, pressure 4. Low, dull backache 5. Cramps that feel like a period 6. Cramps with or without diarrhea If you notice any of the above symptoms, contact our office at [phone] and ask to speak with anurse. After hours, you can call doctors registry at [phone] OR call [facility] at [phone] ask to have the doctor home demonstrator paged. If you consider this an emergency, dial 9-1-6 or go to your nearest emergency department. NEED HELP? Are you dealing with a violent or abusive relationship? Are you a victim of rape or sexual assult? Call [facility] ([place]) 24 hour Crisis Hotline: 177.805.4355 or 230-659-8352. MANUAL Your Guide to a Healthy manual is now on-line. Visit [email or web address] to download your free copy documented in this encounterMercy Health [facility]05-15-2023 Miscellaneous Notes* Quick Notes - Joana Ocampo APRN.CNM - 09/19/2022 1:17 PM EDT [...] 4) Declines aneuploidy testing 5) Reviewed labs Joana Ocampo APRN.CNM * Quick Notes - Joana Ocampo APRN.CNM - 09/19/2022 1:15 PM EDT [...] Reviewed PN labs 5) Declines aneuploidy testing Joana Ocampo APRN.CNM documented in this encounterMercy Health [facility] Hospital05-15-2023 Instructions* Patient Instructions* Sriram Knapp [facility] - 09/19/2022 1:15 PM EDT SEQUENTIAL SCREENINGS The [facility] offers sequential screenings for women who [...] testing. It will require an appointment withour set up technician. This is not an ultrasound performed [...] the above symptoms, contact our office at [phone] and ask to speak with anurse. After hours, you can call doctors registry at [phone] OR call [facility] at [phone] ask to have the doctor home demonstrator paged. If you consider this an emergency, dial 9-1-7 or go to your nearest emergency department. NEED HELP? Are you dealing with a violent or abusive relationship? Are you a victim of rape or sexual assult? Call [facility] ([place]) 24 hour Crisis Hotline: 629.939.2739 or 386-970-6248. MANUAL Your Guide to a Healthy manual is now on-line. Visit [email or web address] to download your free copy documented in this encounterMercy Health [facility] Hospital04-12-2023 Miscellaneous Notes* Quick Notes - Joana Ocampo APRN.CNM - 08/17/2022 11:13 AM EDT LETTY-S: Lori [...] Declines aneuploidy testing 4) Anatomy US ordered Joana Ocampo APRN.CNM documented in this encounterMercy Health [facility] Hospital04-12-2023 Instructions* Patient Instructions* Sriram Knapp Cma - 08/17/2022 10:44 AM EDT SEQUENTIAL SCREENINGS The [facility] offers sequential screenings for women who [...] testing. It will require an appointment withour set up technician. This is not an ultrasound performed [...] the above symptoms, contact our office at [phone] and ask to speak with anurse. After hours, you can call doctors registry at [phone] OR call [facility] at [phone] ask to have the doctor home demonstrator paged. If you consider this an emergency, dial 9-1-1 or go to your nearest emergency department. NEED HELP? Are you dealing with a violent or abusive relationship? Are you a victim of rape or sexual assult? Call [facility] [place] ([facility] 24 hour Crisis Hotline: [phone] or [phone]. MANUAL Your Guide to a Healthy manual is now on-line. Visit [email or web address] to download your free copy documented in this encounterMer[facility] History of Present illness Narrative* Joana Ocampo APRN.CNM - 07/20/2022 8:45 AM EDT INITIAL OB ASSESSMENT OB Provider: Joana Ocampo CNM HPI: Lori Agarwal is a 36 year old female here to establish Obstetrical Care. Patient's last menstrual period was 05/30/2022 (exact date). from OB Dating Form. Cycle length: 30 days. Had full menses in May mid month and then had light spotting 05/30/22. Nothing [...] No Multivitamin with Folic acid: Yes Occupation: [employer] heritage: No Would refuse blood transfusion if medically necessary: No BMI 26.56 kg/(m^2) Patient BMI over 30? 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 Gender: male History of STDs: None PAST MEDICAL HISTORY Diagnosis Date anxiety/depression Dysmenorrhea fracture arm basketball accident History of gestational diabetes 07/19/2018 PAST SURGICAL HISTORY Procedure Laterality Date EXTRACTION, ERUPTED TOOTH OR EXPOSED ROOT (ELEVATION AND/OR FORCEPS REMOVAL) 12/2007 REMOVE TONSIL AND ADENOI UNDER AGE 12 1995 Current Outpatient Medications on File Prior to Visit Medication Sig lactic mpnv-cpjswj-kqhvzzlpl (PHEXXI) 1.8-1-0.4 % gel Insert 1 prefilled applicator vaginally immediately before or up to 1 hour before each act of vaginal intercourse COMPOUNDED PRESCRIPTION Massage therapy as needed for back, neck and shoulder pain acetaminophen (TYLENOL ORAL) Take by mouth. Lactobacillus acidophilus (PROBIOTIC ORAL) Take by mouth. Lzdibycj-Bo-Cws-Fe-FA tab Take 1 tablet by mouth. No [...] up in 4 weeks or sooner prn. Joana Ocampo APRN.CNM documented in this encounterMer[facility]03-15-2023 Instructions* Patient Instructions* Joana Ocampo APRN.CNM - 07/20/2022 8:31 AM EDT Please select the following link to access the [facility] Your Guide to a Healthy . [...] sleep, muscle aches, constipation documented in this encounterMercy [facility]11-21-2022 Instructions* Patient Instructions* Joana Ocampo APRN.CNM - 03/28/2022 2:23 PM EST [facility] and can make this virtually Vasectomy Request a Consultation [place] Appointments: [phone] [place] Appointments: [phone] [place] Appointments: [phone] Diastasis Recti Everymother Mamastay documented in this encounterMercy Health [facility]11-21-2022 History of Present illness Narrative* Joana Ocampo APRN.CNM - 03/28/2022 1:18 PM EST [...] L3 SAB0 IAB0 Ectopic0 Multiple0 Live Births3 Fast Brim Pouncer History LMP: 01/07/2020, Unknown Age at Menarche: Age at First : Age at Menopause: Fast Brim Pouncer History Comments: Sexual Activity: Yes; Male Contraception: [...] Melanoma Hypertension Maternal Grandfather Heart Maternal Grandfather [place] Cancer Paternal Grandfather other (Penicillin allergy) Daughter [...] external genitalia normal, normal Bartholin's glands, urethra, Marine's glands, no vulvar lesions, no cervical lesions, [...] up one year or sooner as needed Joana Ocampo APRN.CNM documented in this encounterMercy [facility]06-09-2021 History of Past illness Narrative* Problem Noted Date Resolved Date Supervision of high risk in third trim terrell 10/14/2020 11/30/2020 Excessive growth affec ting management of in third trimester 09/22/2020 11/30/2020 Overview: 10/16/20-Fetus is large for gestational age. EFW is 9 lb 12 oz (4426 g), which is at the 99th percentile. Joana Ocampo APRN.CNM 10/01/20- Fetus is large for gestational age with EFW of 7 lb 9 oz, which is at the 98th percentile at 35w3d US. Would recommend delivery at 39 weeks, if fetus remains large for gestational age. Per visit. Joana Ocampo APRN.CNM Abnormal glucose in , antepartum 201911/30/2020 Overview: 03/04/20-Elevated early 1hr GCT 154, 3hr GTT ordered. Joana Ocampo APRN.CNM Uterine size-date discrepancy, first trimester 1 11/30/2020 Overview: 03/03/20- LMP inconsistent with US, formal dating US in 2 weeks. Joana Ocampo APRN.CNM History of gestational diabe tammi in prior , currently 02/27/2020 11/30/2020 Overview: 03/03/20-1hr GCT at NOB visit. Joana Ocampo APRN.CNM 02/27/2020Patient had gestational diabetes with her last . She will plan on doing a 1 hour glucose test at her new OB appointment. TKRN History of gestational diabetes mellitus 019 03/03/2020 Gestational diabetes mellitus, class A1 07/20/19 19 11/30/2020 Overview: 09/22/20 - LGA on growth US, [facility] recommends delivery at 39 weeks if remains LGA - Vincent Rubio MD 03/19/20-failed 3-hour GTT. History of GDM class A1 with last . 11/19/18 had 2hr GTT at [facility] and normal, lab scanned into chart. Reviewed GDM diagnosis with patient. She feels she is knowledgeable about diagnosis, testing, and diet. Declines consultation with art educator and cigarette tester. She will check fasting blood sugars and 2-hour postprandials 3 times a day and bring to next visit.Joana Ocampo APRN.CNM Abnormal glucose complicating 07/17/19 19 10/23/2018 Overview: 07/16/18: 3hr GTT ordered. Ana Cristinajazmin Brenner MD Encounter for supervision of other normal , first trimester 02/11/2016 10/23/2018 Overview: documented as of this encounter (statuses as of 04/01/2022) [facility] History of Past illness Narrative* Problem Noted Date Resolved Date Supervision of high risk in third trim terrell 10/14/2020 11/30/2020 Excessive growth affec ting management of in third trimester 09/22/2020 11/30/2020 Overview: 10/16/20-Fetus is large for gestational age. EFW is 9 lb 12 oz (4426 g), which is at the 99th percentile. Joana Ocampo APRN.CNM 10/01/20- Fetus is large for gestational age with EFW of 7 lb 9 oz, which is at the 98th percentile at 35w3d US. Would recommend delivery at 39 weeks, if fetus remains large for gestational age. Per visit. Joana Ocampo APRN.CNM Abnormal glucose in , antepartum 201911/30/2020 Overview: 03/04/20-Elevated early 1hr GCT 154, 3hr GTT ordered. Joana Ocampo APRN.CNM Uterine size-date discrepancy, first trimester 1 11/30/2020 Overview: 03/03/20- LMP inconsistent with US, formal dating US in 2 weeks. Joana Ocampo APRN.CNM History of gestational diabe tammi in prior , currently 02/27/2020 11/30/2020 Overview: 03/03/20-1hr GCT at NOB visit. Joana Ocampo APRN.CNM 02/27/2020Patient had gestational diabetes with her last . She will plan on doing a 1 hour glucose test at her new OB appointment. TKRN History of gestational diabetes mellitus 019 03/03/2020 Gestational diabetes mellitus, class A1 07/20/19 19 11/30/2020 Overview: 09/22/20 - LGA on growth US, [facility] recommends delivery at 39 weeks if remains LGA - Vincent Rubio MD 03/19/20-failed 3-hour GTT. History of GDM class A1 with last . 11/19/18 had 2hr GTT at [facility] and normal, lab scanned into chart. Reviewed GDM diagnosis with patient. She feels she is knowledgeable about diagnosis, testing, and diet. Declines consultation with art educator and cigarette tester. She will check fasting blood sugars and 2-hour postprandials 3 times a day and bring to next visit.Joana Ocampo APRN.CNM Abnormal glucose complicating 07/17/19 19 10/23/2018 Overview: 07/16/18: 3hr GTT ordered. Ana Cristina Brenner MD Encounter for supervision of other normal , first trimester 02/11/2016 10/23/2018 Overview: documented as of this encounter (statuses as of 07/12/2022) [facility] of Past illness Narrative* Problem Noted Date Resolved Date Supervision of high risk in third trim terrell 10/14/2020 11/30/2020 Excessive growth affec ting management of in third trimester 09/22/2020 11/30/2020 Overview: 10/16/20-Fetus is large for gestational age. EFW is 9 lb 12 oz (4426 g), which is at the 99th percentile. Joana Ocampo APRN.CNM 10/01/20- Fetus is large for gestational age with EFW of 7 lb 9 oz, which is at the 98th percentile at 35w3d US. Would recommend delivery at 39 weeks, if fetus remains large for gestational age. Per visit. Joana Ocampo APRN.CNM Abnormal glucose in , antepartum 201911/30/2020 Overview: 03/04/20-Elevated early 1hr GCT 154, 3hr GTT ordered. Joana Ocampo APRN.CNM Uterine size-date discrepancy, first trimester 1 11/30/2020 Overview: 03/03/20- LMP inconsistent with US, formal dating US in 2 weeks. Joana Ocampo APRN.CNM History of gestational diabe tammi in prior , currently 02/27/2020 11/30/2020 Overview: 03/03/20-1hr GCT at NOB visit. Joana Ocampo APRN.CNM 02/27/2020Patient had gestational diabetes with her last . She will plan on doing a 1 hour glucose test at her new OB appointment. TKRN History of gestational diabetes mellitus 019 03/03/2020 Gestational diabetes mellitus, class A1 07/20/19 19 11/30/2020 Overview: 09/22/20 - LGA on growth US, [facility] recommends delivery at 39 weeks if remains LGA - Vincent Rubio MD 03/19/20-failed 3-hour GTT. History of GDM class A1 with last . 11/19/18 had 2hr GTT at [facility] and normal, lab scanned into chart. Reviewed GDM diagnosis with patient. She feels she is knowledgeable about diagnosis, testing, and diet. Declines consultation with art educator and cigarette tester. She will check fasting blood sugars and 2-hour postprandials 3 times a day and bring to next visit.Joana Ocampo APRN.TRACY Abnormal glucose complicating 07/17/19 19 10/23/2018 Overview: 07/16/18: 3hr GTT ordered. Ana Cristina Brenner MD documented as of this encounter (statuses as of 07/20/2022) [facility] of Past illness Narrative* Problem Noted Date Resolved Date Supervision of high risk in third trim terrell 10/14/2020 11/30/2020 Excessive growth affec ting management of in third trimester 09/22/2020 11/30/2020 Overview: 10/16/20-Fetus is large for gestational age. EFW is 9 lb 12 oz (4426 g), which is at the 99th percentile. Joana Ocampo APRN.CNM 10/01/20- Fetus is large for gestational age with EFW of 7 lb 9 oz, which is at the 98th percentile at 35w3d US. Would recommend delivery at 39 weeks, if fetus remains large for gestational age. Per visit. Joana Ocampo APRN.CNM Abnormal glucose in , antepartum 201911/30/2020 Overview: 03/04/20-Elevated early 1hr GCT 154, 3hr GTT ordered. Joana Ocampo APRN.CNM Uterine size-date discrepancy, first trimester 1 11/30/2020 Overview: 03/03/20- LMP inconsistent with US, formal dating US in 2 weeks. Joana Ocampo APRN.CNM History of gestational diabe tammi in prior , currently 02/27/2020 11/30/2020 Overview: 03/03/20-1hr GCT at NOB visit. Joana Ocampo APRN.CNM 02/27/2020Patient had gestational diabetes with her last . She will plan on doing a 1 hour glucose test at her new OB appointment. TKRN History of gestational diabetes mellitus 019 03/03/2020 Gestational diabetes mellitus, class A1 07/20/19 19 11/30/2020 Overview: 09/22/20 - LGA on growth US, [facility] recommends delivery at 39 weeks if remains LGA - Vincent Rubio MD 03/19/20-failed 3-hour GTT. History of GDM class A1 with last . 11/19/18 had 2hr GTT at [facility] and normal, lab scanned into chart. Reviewed GDM diagnosis with patient. She feels she is knowledgeable about diagnosis, testing, and diet. Declines consultation with art educator and cigarette tester. She will check fasting blood sugars and 2-hour postprandials 3 times a day and bring to next visit.Joana Ocampo, SKEINER.CNM Abnormal glucose complicating 07/17/19 19 10/23/2018 Overview: 07/16/18: 3hr GTT ordered. Ana Cristina Brenner MD documented as of this encounter (statuses as of 08/01/2022) [facility] of Past illness Narrative* Problem Noted Date Resolved Date Supervision of high risk in third trim terrell 10/14/2020 11/30/2020 Excessive growth affec ting management of in third trimester 09/22/2020 11/30/2020 Overview: 10/16/20-Fetus is large for gestational age. EFW is 9 lb 12 oz (4426 g), which is at the 99th percentile. Joana Ocampo APRN.CNM 10/01/20- Fetus is large for gestational age with EFW of 7 lb 9 oz, which is at the 98th percentile at 35w3d US. Would recommend delivery at 39 weeks, if fetus remains large for gestational age. Per visit. Joana Ocampo APRN.MELINDAM Abnormal glucose in , antepartum 201911/30/2020 Overview: 03/04/20-Elevated early 1hr GCT 154, 3hr GTT ordered. Joana Ocampo APRN.CNM Uterine size-date discrepancy, first trimester 1 11/30/2020 Overview: 03/03/20- LMP inconsistent with US, formal dating US in 2 weeks. Joana Ocampo APRN.CNM History of gestational diabe tammi in prior , currently 02/27/2020 11/30/2020 Overview: 03/03/20-1hr GCT at NOB visit. Joana Ocampo APRN.CNGloria 02/27/2020Patient had gestational diabetes with her last . She will plan on doing a 1 hour glucose test at her new OB appointment. TKRN History of gestational diabetes mellitus 10/23/ 019 03/03/2020 Gestational diabetes mellitus, class A1 07/20/1911/30/2020 Overview: 09/22/20 - LGA on growth US, [facility] recommends delivery at 39 weeks if remains LGA - Vincent Rubio MD 03/19/20-failed 3-hour GTT. History of GDM class A1 with last . 11/19/18 had 2hr GTT at [facility] and normal, lab scanned into chart. Reviewed GDM diagnosis with patient. She feels she is knowledgeable about diagnosis, testing, and diet. Declines consultation with art educator and cigarette tester. She will check fasting blood sugars and 2-hour postprandials 3 times a day and bring to next visit.Joana Ocampo APRN.CNM Abnormal glucose complicating 07/17/1910/23/2018 Overview: 07/16/18: 3hr GTT ordered. Ana Cristina Brenner MD documented as of this encounter (statuses as of 08/07/2022) [facility] of Past illness Narrative* Problem Noted Date Resolved Date Supervision of high risk in third trim terrell 10/14/2020 11/30/2020 Excessive growth affec ting management of in third trimester 09/22/2020 11/30/2020 Overview: 10/16/20-Fetus is large for gestational age. EFW is 9 lb 12 oz (4426 g), which is at the 99th percentile. Joana Ocampo APRN.CNM 10/01/20- Fetus is large for gestational age with EFW of 7 lb 9 oz, which is at the 98th percentile at 35w3d US. Would recommend delivery at 39 weeks, if fetus remains large for gestational age. Per visit. Joana Ocampo APRN.CNM Abnormal glucose in , antepartum 201911/30/2020 Overview: 03/04/20-Elevated early 1hr GCT 154, 3hr GTT ordered. Joana Ocampo APRN.CNM Uterine size-date discrepancy, first trimester 1 11/30/2020 Overview: 03/03/20- LMP inconsistent with US, formal dating US in 2 weeks. Joana Ocampo APRN.CNM History of gestational diabe tammi in prior , currently 02/27/2020 11/30/2020 Overview: 03/03/20-1hr GCT at NOB visit. Joana Ocampo APRN.CNM 02/27/2020Patient had gestational diabetes with her last . She will plan on doing a 1 hour glucose test at her new OB appointment. TKRN History of gestational diabetes mellitus 019 03/03/2020 Gestational diabetes mellitus, class A1 07/20/19 19 11/30/2020 Overview: 09/22/20 - LGA on growth US, [facility] recommends delivery at 39 weeks if remains LGA - Vincent Rubio MD 03/19/20-failed 3-hour GTT. History of GDM class A1 with last . 11/19/18 had 2hr GTT at [facility] and normal, lab scanned into chart. Reviewed GDM diagnosis with patient. She feels she is knowledgeable about diagnosis, testing, and diet. Declines consultation with art educator and cigarette tester. She will check fasting blood sugars and 2-hour postprandials 3 times a day and bring to next visit.Joana Ocampo APRN.TRACY Abnormal glucose complicating 07/17/19 19 10/23/2018 Overview: 07/16/18: 3hr GTT ordered. Ana Cristina Brenner MD documented as of this encounter (statuses as of 08/18/2022) [facility] of Past illness Narrative* Problem Noted Date Resolved Date Supervision of high risk in third trim terrell 10/14/2020 11/30/2020 Excessive growth affec ting management of in third trimester 09/22/2020 11/30/2020 Overview: 10/16/20-Fetus is large for gestational age. EFW is 9 lb 12 oz (4426 g), which is at the 99th percentile. Joana Ocampo APRN.CNM 10/01/20- Fetus is large for gestational age with EFW of 7 lb 9 oz, which is at the 98th percentile at 35w3d US. Would recommend delivery at 39 weeks, if fetus remains large for gestational age. Per visit. Joana Ocampo APRN.CNM Abnormal glucose in , antepartum 201911/30/2020 Overview: 03/04/20-Elevated early 1hr GCT 154, 3hr GTT ordered. Joana Ocampo APRN.CNM Uterine size-date discrepancy, first trimester 1 11/30/2020 Overview: 03/03/20- LMP inconsistent with US, formal dating US in 2 weeks. Joana Ocampo APRN.CNM History of gestational diabe tammi in prior , currently 02/27/2020 11/30/2020 Overview: 03/03/20-1hr GCT at NOB visit. Joana Ocampo APRN.CNM 02/27/2020Patient had gestational diabetes with her last . She will plan on doing a 1 hour glucose test at her new OB appointment. TKRN History of gestational diabetes mellitus 019 03/03/2020 Gestational diabetes mellitus, class A1 07/20/19 19 11/30/2020 Overview: 09/22/20 - LGA on growth US, [facility] recommends delivery at 39 weeks if remains LGA - Vincent Rubio MD 03/19/20-failed 3-hour GTT. History of GDM class A1 with last . 11/19/18 had 2hr GTT at [facility] and normal, lab scanned into chart. Reviewed GDM diagnosis with patient. She feels she is knowledgeable about diagnosis, testing, and diet. Declines consultation with art educator and cigarette tester. She will check fasting blood sugars and 2-hour postprandials 3 times a day and bring to next visit.Joana Ocampo APRN.CNM Abnormal glucose complicating 07/17/19 19 10/23/2018 Overview: 07/16/18: 3hr GTT ordered. Ana Cristina Brenner MD documented as of this encounter (statuses as of 09/19/2022) [facility] of Past illness Narrative* Problem Noted Date Resolved Date Supervision of high risk in third trim terrell 10/14/2020 11/30/2020 Excessive growth affec ting management of in third trimester 09/22/2020 11/30/2020 Overview: 10/16/20-Fetus is large for gestational age. EFW is 9 lb 12 oz (4426 g), which is at the 99th percentile. Joaan Ocampo APRN.CNM 10/01/20- Fetus is large for gestational age with EFW of 7 lb 9 oz, which is at the 98th percentile at 35w3d US. Would recommend delivery at 39 weeks, if fetus remains large for gestational age. Per visit. Joana Ocampo APRN.CNM Abnormal glucose in , antepartum 201911/30/2020 Overview: 03/04/20-Elevated early 1hr GCT 154, 3hr GTT ordered. Joana Ocampo APRN.CNM Uterine size-date discrepancy, first trimester 1 11/30/2020 Overview: 03/03/20- LMP inconsistent with US, formal dating US in 2 weeks. Joana Ocampo APRN.CNM History of gestational diabe tammi in prior , currently 02/27/2020 11/30/2020 Overview: 03/03/20-1hr GCT at NOB visit. Joana Ocampo APRN.CNM 02/27/2020Patient had gestational diabetes with her last . She will plan on doing a 1 hour glucose test at her new OB appointment. TKRN History of gestational diabetes mellitus 019 03/03/2020 Gestational diabetes mellitus, class A1 07/20/19 19 11/30/2020 Overview: 09/22/20 - LGA on growth US, [facility] recommends delivery at 39 weeks if remains LGA - Vincent Rubio MD 03/19/20-failed 3-hour GTT. History of GDM class A1 with last . 11/19/18 had 2hr GTT at [facility] and normal, lab scanned into chart. Reviewed GDM diagnosis with patient. She feels she is knowledgeable about diagnosis, testing, and diet. Declines consultation with art educator and cigarette tester. She will check fasting blood sugars and 2-hour postprandials 3 times a day and bring to next visit.Joana Ocampo APRN.CNM Abnormal glucose complicating 07/17/19 19 10/23/2018 Overview: 07/16/18: 3hr GTT ordered. Ana Cristina Brenner MD documented as of this encounter (statuses as of 10/24/2022) [facility] of Past illness Narrative* Problem Noted Date Diagnosed Date Resolved Date Supervision of high risk pre gnancy in third trimester 10/14/2020 11/30/2020 Excessive growth affec ting management of in third trimester 09/22/2020 12/01/19 Overview: 10/16/20-Fetus is large for gestational age. EFW is 9 lb 12 oz (4426 g), which is at the 99th percentile. Joana Ocampo APRN.CNM 10/01/20- Fetus is large for gestational age with EFW of 7 lb 9 oz, which is at the 98th percentile at 35w3d US. Would recommend delivery at 39 weeks, if fetus remains large for gestational age. Per visit. Joana Ocampo APRN.CNM Abnormal glucose in , antepartum 03/04/2020 11/30/2020 Overview: 03/04/20-Elevated early 1hr GCT 154, 3hr GTT ordered. Joana Ocampo APRN.CNM Uterine size-date discrepanc y, first trimester 03/03/2020 11/30/2020 Overview: 03/03/20- LMP inconsistent with US, formal dating US in 2 weeks. Joana Ocampo APRN.CNM History of gestational diabe tammi in prior , currently 02/27/2020 11/30/2020 Overview: 03/03/20-1hr GCT at NOB visit. Joana Ocampo APRN.CNM 02/27/2020Patient had gestational diabetes with her last . She will plan on doing a 1 hour glucose test at her new OB appointment. TKRN History of gestational diabetes mellitus 10/23/2018 03/03/2020 Gestational diabetes mellitus, class A1 07/19/2018 11/30/2020 Overview: 09/22/20 - LGA on growth US, [facility] recommends delivery at 39 weeks if remains LGA - Vincent Rubio MD 03/19/20-failed 3-hour GTT. History of GDM class A1 with last . 11/19/18 had 2hr GTT at [facility] and normal, lab scanned into chart. Reviewed GDM diagnosis with patient. She feels she is knowledgeable about diagnosis, testing, and diet. Declines consultation with art educator and cigarette tester. She will check fasting blood sugars and 2-hour postprandials 3 times a day and bring to next visit.Joana Ocampo APRN.CNM Abnormal glucose complicating 07/16/2018 10/23/2018 Overview: 07/16/18: 3hr GTT ordered. Ana Cristina Brenner MD documented as of this encounter (statuses as of 11/17/2022) [facility] of Past illness Narrative* Problem Noted Date Diagnosed Date Resolved Date Supervision of high risk pre gnancy in third trimester 10/14/2020 11/30/2020 Excessive growth affec ting management of in third trimester 09/22/2020 12/01/19 Overview: 10/16/20-Fetus is large for gestational age. EFW is 9 lb 12 oz (4426 g), which is at the 99th percentile. Joana Ocampo APRN.CNM 10/01/20- Fetus is large for gestational age with EFW of 7 lb 9 oz, which is at the 98th percentile at 35w3d US. Would recommend delivery at 39 weeks, if fetus remains large for gestational age. Per visit. Joana Ocampo APRN.CNM Abnormal glucose in , antepartum 03/04/2020 11/30/2020 Overview: 03/04/20-Elevated early 1hr GCT 154, 3hr GTT ordered. Joana Ocampo APRN.CNM Uterine size-date discrepanc y, first trimester 03/03/2020 11/30/2020 Overview: 03/03/20- LMP inconsistent with US, formal dating US in 2 weeks. Joana Ocampo APRN.CNM History of gestational diabe tammi in prior , currently 02/27/2020 11/30/2020 Overview: 03/03/20-1hr GCT at NOB visit. Joana Ocampo APRN.CNM 02/27/2020Patient had gestational diabetes with her last . She will plan on doing a 1 hour glucose test at her new OB appointment. TKRN History of gestational diabetes mellitus 10/23/2018 03/03/2020 Gestational diabetes mellitus, class A1 07/19/2018 11/30/2020 Overview: 09/22/20 - LGA on growth US, [facility] recommends delivery at 39 weeks if remains LGA - Vincent Rubio MD 03/19/20-failed 3-hour GTT. History of GDM class A1 with last . 11/19/18 had 2hr GTT at [facility] and normal, lab scanned into chart. Reviewed GDM diagnosis with patient. She feels she is knowledgeable about diagnosis, testing, and diet. Declines consultation with art educator and cigarette tester. She will check fasting blood sugars and 2-hour postprandials 3 times a day and bring to next visit.Joana Ocampo APRN.CNM documented as of this encounter (statuses as of 12/01/2022) [facility]06-09-2021 History of Past illness Narrative* Problem Noted Date Diagnosed Date Resolved Date Supervision of high risk pre gnancy in third trimester 10/14/2020 11/30/2020 Excessive growth affec ting management of in third trimester 09/22/2020 12/01/19 Overview: 10/16/20-Fetus is large for gestational age. EFW is 9 lb 12 oz (4426 g), which is at the 99th percentile. Joana Ocampo APRN.CNM 10/01/20- Fetus is large for gestational age with EFW of 7 lb 9 oz, which is at the 98th percentile at 35w3d US. Would recommend delivery at 39 weeks, if fetus remains large for gestational age. Per visit. Joana Ocampo APRN.CNM Abnormal glucose in , antepartum 03/04/2020 11/30/2020 Overview: 03/04/20-Elevated early 1hr GCT 154, 3hr GTT ordered. Joana Ocampo APRN.CNM Uterine size-date discrepanc y, first trimester 03/03/2020 11/30/2020 Overview: 03/03/20- LMP inconsistent with US, formal dating US in 2 weeks. Joana Ocampo APRN.CNM History of gestational diabe tammi in prior , currently 02/27/2020 11/30/2020 Overview: 03/03/20-1hr GCT at NOB visit. Joana Ocampo APRN.CNM 02/27/2020Patient had gestational diabetes with her last . She will plan on doing a 1 hour glucose test at her new OB appointment. TKRN History of gestational diabetes mellitus 10/23/2018 03/03/2020 Gestational diabetes mellitus, class A1 07/19/2018 11/30/2020 Overview: 09/22/20 - LGA on growth US, [facility] recommends delivery at 39 weeks if remains LGA - Vincent Rubio MD 03/19/20-failed 3-hour GTT. History of GDM class A1 with last . 11/19/18 had 2hr GTT at [facility] and normal, lab scanned into chart. Reviewed GDM diagnosis with patient. She feels she is knowledgeable about diagnosis, testing, and diet. Declines consultation with art educator and cigarette tester. She will check fasting blood sugars and 2-hour postprandials 3 times a day and bring to next visit.Joana Ocampo APRN.CNM documented as of this encounter (statuses as of 12/02/2022) [facility]06-09-2021 History of Past illness Narrative* Problem Noted Date Diagnosed Date Resolved Date Supervision of high risk pre gnancy in third trimester 10/14/2020 11/30/2020 Excessive growth affec ting management of in third trimester 09/22/2020 12/01/19 21 Overview: 10/16/20-Fetus is large for gestational age. EFW is 9 lb 12 oz (4426 g), which is at the 99th percentile. Joana Ocampo APRN.CNM 10/01/20- Fetus is large for gestational age with EFW of 7 lb 9 oz, which is at the 98th percentile at 35w3d US. Would recommend delivery at 39 weeks, if fetus remains large for gestational age. Per visit. Joana Ocampo APRN.CNM Abnormal glucose in , antepartum 03/04/2020 11/30/2020 Overview: 03/04/20-Elevated early 1hr GCT 154, 3hr GTT ordered. Joana Ocampo APRN.CNM Uterine size-date discrepanc y, first trimester 03/03/2020 11/30/2020 Overview: 03/03/20- LMP inconsistent with US, formal dating US in 2 weeks. Joana Ocampo APRN.CNM History of gestational diabe tammi in prior , currently 02/27/2020 11/30/2020 Overview: 03/03/20-1hr GCT at NOB visit. Joana Ocampo APRN.CNM 02/27/2020Patient had gestational diabetes with her last . She will plan on doing a 1 hour glucose test at her new OB appointment. TKRN History of gestational diabetes mellitus 10/23/2018 03/03/2020 Gestational diabetes mellitus, class A1 07/19/2018 11/30/2020 Overview: 09/22/20 - LGA on growth US, [facility] recommends delivery at 39 weeks if remains LGA - Vincent Rubio MD 03/19/20-failed 3-hour GTT. History of GDM class A1 with last . 11/19/18 had 2hr GTT at [facility] and normal, lab scanned into chart. Reviewed GDM diagnosis with patient. She feels she is knowledgeable about diagnosis, testing, and diet. Declines consultation with art educator and cigarette tester. She will check fasting blood sugars and 2-hour postprandials 3 times a day and bring to next visit.Joana Ocampo APRN.CNM documented as of this encounter (statuses as of 12/08/2022) [facility]06-09-2021 History of Past illness Narrative* Problem Noted Date Diagnosed Date Resolved Date Supervision of high risk pre gnancy in third trimester 10/14/2020 11/30/2020 Excessive growth affec ting management of in third trimester 09/22/2020 12/01/19 21 Overview: 10/16/20-Fetus is large for gestational age. EFW is 9 lb 12 oz (4426 g), which is at the 99th percentile. Joana Ocampo APRN.CNM 10/01/20- Fetus is large for gestational age with EFW of 7 lb 9 oz, which is at the 98th percentile at 35w3d US. Would recommend delivery at 39 weeks, if fetus remains large for gestational age. Per visit. Joana Ocampo APRN.CNM Abnormal glucose in , antepartum 03/04/2020 11/30/2020 Overview: 03/04/20-Elevated early 1hr GCT 154, 3hr GTT ordered. Joana Ocampo APRN.CNM Uterine size-date discrepanc y, first trimester 03/03/2020 11/30/2020 Overview: 03/03/20- LMP inconsistent with US, formal dating US in 2 weeks. Joana Ocampo APRN.CNM History of gestational diabe tammi in prior , currently 02/27/2020 11/30/2020 Overview: 03/03/20-1hr GCT at NOB visit. Joana Ocampo APRN.CNM 02/27/2020Patient had gestational diabetes with her last . She will plan on doing a 1 hour glucose test at her new OB appointment. TKRN History of gestational diabetes mellitus 10/23/2018 03/03/2020 Gestational diabetes mellitus, class A1 07/19/2018 11/30/2020 Overview: 09/22/20 - LGA on growth US, [facility] recommends delivery at 39 weeks if remains LGA - Vincent Rubio MD 03/19/20-failed 3-hour GTT. History of GDM class A1 with last . 11/19/18 had 2hr GTT at [facility] and normal, lab scanned into chart. Reviewed GDM diagnosis with patient. She feels she is knowledgeable about diagnosis, testing, and diet. Declines consultation with art educator and cigarette tester. She will check fasting blood sugars and 2-hour postprandials 3 times a day and bring to next visit.Joana Ocampo APRN.CNM documented as of this encounter (statuses as of 12/19/2022) [facility]06-09-2021 History of Past illness Narrative* Problem Noted Date Diagnosed Date Resolved Date Supervision of high risk pre gnancy in third trimester 10/14/2020 11/30/2020 Excessive growth affec ting management of in third trimester 09/22/2020 12/01/19 Overview: 10/16/20-Fetus is large for gestational age. EFW is 9 lb 12 oz (4426 g), which is at the 99th percentile. Joana Ocampo APRN.CNM 10/01/20- Fetus is large for gestational age with EFW of 7 lb 9 oz, which is at the 98th percentile at 35w3d US. Would recommend delivery at 39 weeks, if fetus remains large for gestational age. Per visit. Joana Ocampo APRN.CNM Abnormal glucose in , antepartum 03/04/2020 11/30/2020 Overview: 03/04/20-Elevated early 1hr GCT 154, 3hr GTT ordered. Joana Ocampo APRN.CNM Uterine size-date discrepanc y, first trimester 03/03/2020 11/30/2020 Overview: 03/03/20- LMP inconsistent with US, formal dating US in 2 weeks. Joana Ocampo APRN.CNM History of gestational diabe tammi in prior , currently 02/27/2020 11/30/2020 Overview: 03/03/20-1hr GCT at NOB visit. Joana Ocampo APRN.CNM 02/27/2020Patient had gestational diabetes with her last . She will plan on doing a 1 hour glucose test at her new OB appointment. TKRN History of gestational diabetes mellitus 10/23/2018 03/03/2020 Gestational diabetes mellitus, class A1 07/19/2018 11/30/2020 Overview: 09/22/20 - LGA on growth US, [facility] recommends delivery at 39 weeks if remains LGA - Vincent Rubio MD 03/19/20-failed 3-hour GTT. History of GDM class A1 with last . 11/19/18 had 2hr GTT at [facility] and normal, lab scanned into chart. Reviewed GDM diagnosis with patient. She feels she is knowledgeable about diagnosis, testing, and diet. Declines consultation with art educator and cigarette tester. She will check fasting blood sugars and 2-hour postprandials 3 times a day and bring to next visit.Joana Ocampo APRN.CNM documented as of this encounter (statuses as of 01/04/2023) [facility]06-09-2021 History of Past illness Narrative* Problem Noted Date Diagnosed Date Resolved Date Supervision of high risk pre gnancy in third trimester 10/14/2020 11/30/2020 Excessive growth affec ting management of in third trimester 09/22/2020 12/01/19 Overview: 10/16/20-Fetus is large for gestational age. EFW is 9 lb 12 oz (4426 g), which is at the 99th percentile. Joana Ocampo APRN.CNM 10/01/20- Fetus is large for gestational age with EFW of 7 lb 9 oz, which is at the 98th percentile at 35w3d US. Would recommend delivery at 39 weeks, if fetus remains large for gestational age. Per visit. Joana Ocampo APRN.CNM Abnormal glucose in , antepartum 03/04/2020 11/30/2020 Overview: 03/04/20-Elevated early 1hr GCT 154, 3hr GTT ordered. Joana Ocampo APRN.CNM Uterine size-date discrepanc y, first trimester 03/03/2020 11/30/2020 Overview: 03/03/20- LMP inconsistent with US, formal dating US in 2 weeks. Joana Ocampo APRN.CNM History of gestational diabe tammi in prior , currently 02/27/2020 11/30/2020 Overview: 03/03/20-1hr GCT at NOB visit. Joana Ocampo APRN.CNM 02/27/2020Patient had gestational diabetes with her last . She will plan on doing a 1 hour glucose test at her new OB appointment. TKRN History of gestational diabetes mellitus 10/23/2018 03/03/2020 Gestational diabetes mellitus, class A1 07/19/2018 11/30/2020 Overview: 09/22/20 - LGA on growth US, [facility] recommends delivery at 39 weeks if remains LGA - Vincent Rubio MD 03/19/20-failed 3-hour GTT. History of GDM class A1 with last . 11/19/18 had 2hr GTT at [facility] and normal, lab scanned into chart. Reviewed GDM diagnosis with patient. She feels she is knowledgeable about diagnosis, testing, and diet. Declines consultation with art educator and cigarette tester. She will check fasting blood sugars and 2-hour postprandials 3 times a day and bring to next visit.Joana Ocampo APRN.CNM documented as of this encounter (statuses as of 01/20/2023) [place] [address]-09-2021 History of Past illness Narrative* Problem Noted Date Diagnosed Date Resolved Date Supervision of high risk pre gnancy in third trimester 10/14/2020 11/30/2020 Excessive growth affec ting management of in third trimester 09/22/2020 12/01/19 21 Overview: 10/16/20-Fetus is large for gestational age. EFW is 9 lb 12 oz (4426 g), which is at the 99th percentile. oJana Ocampo APRN.CNM 10/01/20- Fetus is large for gestational age with EFW of 7 lb 9 oz, which is at the 98th percentile at 35w3d US. Would recommend delivery at 39 weeks, if fetus remains large for gestational age. Per visit. Joana Ocampo APRN.CNM Abnormal glucose in , antepartum 03/04/2020 11/30/2020 Overview: 03/04/20-Elevated early 1hr GCT 154, 3hr GTT ordered. Joana Ocampo APRN.CNM Uterine size-date discrepanc y, first trimester 03/03/2020 11/30/2020 Overview: 03/03/20- LMP inconsistent with US, formal dating US in 2 weeks. Joana Ocampo APRN.CNM History of gestational diabe tammi in prior , currently 02/27/2020 11/30/2020 Overview: 03/03/20-1hr GCT at NOB visit. Joana Ocampo APRN.CNM 02/27/2020Patient had gestational diabetes with her last . She will plan on doing a 1 hour glucose test at her new OB appointment. TKRN History of gestational diabetes mellitus 10/23/2018 03/03/2020 Gestational diabetes mellitus, class A1 07/19/2018 11/30/2020 Overview: 09/22/20 - LGA on growth US, [facility] recommends delivery at 39 weeks if remains LGA - Vincent Rubio MD 03/19/20-failed 3-hour GTT. History of GDM class A1 with last . 11/19/18 had 2hr GTT at [facility] and normal, lab scanned into chart. Reviewed GDM diagnosis with patient. She feels she is knowledgeable about diagnosis, testing, and diet. Declines consultation with art educator and cigarette tester. She will check fasting blood sugars and 2-hour postprandials 3 times a day and bring to next visit.Joana Ocampo APRN.CNM documented as of this encounter (statuses as of 02/03/2023) [facility]06-09-[facility]21 History of Past illness Narrative* Problem Noted Date Diagnosed Date Resolved Date Supervision of high risk pre gnancy in third trimester 10/14/2020 11/30/2020 Excessive growth affec ting management of in third trimester 09/22/2020 12/01/19 Overview: 10/16/20-Fetus is large for gestational age. EFW is 9 lb 12 oz (4426 g), which is at the 99th percentile. Joana Ocampo APRN.CNM 10/01/20- Fetus is large for gestational age with EFW of 7 lb 9 oz, which is at the 98th percentile at 35w3d US. Would recommend delivery at 39 weeks, if fetus remains large for gestational age. Per visit. Joana Ocampo APRN.CNM Abnormal glucose in , antepartum 03/04/2020 11/30/2020 Overview: 03/04/20-Elevated early 1hr GCT 154, 3hr GTT ordered. Joana Ocampo APRN.CNM Uterine size-date discrepanc y, first trimester 03/03/2020 11/30/2020 Overview: 03/03/20- LMP inconsistent with US, formal dating US in 2 weeks. Joana Ocampo APRN.CNM History of gestational diabe tammi in prior , currently 02/27/2020 11/30/2020 Overview: 03/03/20-1hr GCT at NOB visit. Joana Ocampo APRN.CNM 02/27/2020Patient had gestational diabetes with her last . She will plan on doing a 1 hour glucose test at her new OB appointment. TKRN History of gestational diabetes mellitus 10/23/2018 03/03/2020 Gestational diabetes mellitus, class A1 07/19/2018 11/30/2020 Overview: 09/22/20 - LGA on growth US, [facility] recommends delivery at 39 weeks if remains LGA - Vincent Rubio MD 03/19/20-failed 3-hour GTT. History of GDM class A1 with last . 11/19/18 had 2hr GTT at [facility] and normal, lab scanned into chart. Reviewed GDM diagnosis with patient. She feels she is knowledgeable about diagnosis, testing, and diet. Declines consultation with art educator and cigarette tester. She will check fasting blood sugars and 2-hour postprandials 3 times a day and bring to next visit.Joana Ocampo APRN.CNM documented as of this encounter (statuses as of 02/07/2023) [facility] History of Past illness Narrative* Problem Noted Date Diagnosed Date Resolved Date Supervision of high risk pre gnancy in third trimester 10/14/2020 11/30/2020 Excessive growth affec ting management of in third trimester 09/22/2020 12/01/19 Overview: 10/16/20-Fetus is large for gestational age. EFW is 9 lb 12 oz (4426 g), which is at the 99th percentile. Joana Ocampo APRN.CNM 10/01/20- Fetus is large for gestational age with EFW of 7 lb 9 oz, which is at the 98th percentile at 35w3d US. Would recommend delivery at 39 weeks, if fetus remains large for gestational age. Per visit. Joana Ocampo APRN.CNM Abnormal glucose in , antepartum 03/04/2020 11/30/2020 Overview: 03/04/20-Elevated early 1hr GCT 154, 3hr GTT ordered. Joana Ocampo APRN.CNM Uterine size-date discrepanc y, first trimester 03/03/2020 11/30/2020 Overview: 03/03/20- LMP inconsistent with US, formal dating US in 2 weeks. Joana Ocampo APRN.CNM History of gestational diabe tammi in prior , currently 02/27/2020 11/30/2020 Overview: 03/03/20-1hr GCT at NOB visit. Joana Ocampo APRN.CNM 02/27/2020Patient had gestational diabetes with her last . She will plan on doing a 1 hour glucose test at her new OB appointment. TKRN History of gestational diabetes mellitus 10/23/2018 03/03/2020 Gestational diabetes mellitus, class A1 07/19/2018 11/30/2020 Overview: 09/22/20 - LGA on growth US, [facility] recommends delivery at 39 weeks if remains LGA - Vincent Rubio MD 03/19/20-failed 3-hour GTT. History of GDM class A1 with last . 11/19/18 had 2hr GTT at [facility] and normal, lab scanned into chart. Reviewed GDM diagnosis with patient. She feels she is knowledgeable about diagnosis, testing, and diet. Declines consultation with art educator and cigarette tester. She will check fasting blood sugars and 2-hour postprandials 3 times a day and bring to next visit.Joana Ocampo APRN.CNM documented as of this encounter (statuses as of 02/07/2023) [facility] History of Past illness Narrative* Problem Noted Date Diagnosed Date Resolved Date Supervision of high risk pre gnancy in third trimester 10/14/2020 11/30/2020 Excessive growth affec ting management of in third trimester 09/22/2020 12/01/19 Overview: 10/16/20-Fetus is large for gestational age. EFW is 9 lb 12 oz (4426 g), which is at the 99th percentile. Joana Ocampo APRN.CNM 10/01/20- Fetus is large for gestational age with EFW of 7 lb 9 oz, which is at the 98th percentile at 35w3d US. Would recommend delivery at 39 weeks, if fetus remains large for gestational age. Per visit. Joana Ocampo APRN.CNM Abnormal glucose in , antepartum 03/04/2020 11/30/2020 Overview: 03/04/20-Elevated early 1hr GCT 154, 3hr GTT ordered. Joana Ocampo APRN.CNM Uterine size-date discrepanc y, first trimester 03/03/2020 11/30/2020 Overview: 03/03/20- LMP inconsistent with US, formal dating US in 2 weeks. Joana Ocampo APRN.CNM History of gestational diabe tammi in prior , currently 02/27/2020 11/30/2020 Overview: 03/03/20-1hr GCT at NOB visit. Joana Ocampo APRN.CNM 02/27/2020Patient had gestational diabetes with her last . She will plan on doing a 1 hour glucose test at her new OB appointment. TKRN History of gestational diabetes mellitus 10/23/2018 03/03/2020 Gestational diabetes mellitus, class A1 07/19/2018 11/30/2020 Overview: 09/22/20 - LGA on growth US, [facility] recommends delivery at 39 weeks if remains LGA - Vincent Rubio MD 03/19/20-failed 3-hour GTT. History of GDM class A1 with last . 11/19/18 had 2hr GTT at [facility] and normal, lab scanned into chart. Reviewed GDM diagnosis with patient. She feels she is knowledgeable about diagnosis, testing, and diet. Declines consultation with art educator and cigarette tester. She will check fasting blood sugars and 2-hour postprandials 3 times a day and bring to next visit.Joana Ocampo APRN.CNM documented as of this encounter (statuses as of 02/14/2023) [facility] History of Past illness Narrative* Problem Noted Date Diagnosed Date Resolved Date Supervision of high risk pre gnancy in third trimester 10/14/2020 11/30/2020 Excessive growth affec ting management of in third trimester 09/22/2020 12/01/19 Overview: 10/16/20-Fetus is large for gestational age. EFW is 9 lb 12 oz (4426 g), which is at the 99th percentile. Joana Ocampo APRN.CNM 10/01/20- Fetus is large for gestational age with EFW of 7 lb 9 oz, which is at the 98th percentile at 35w3d US. Would recommend delivery at 39 weeks, if fetus remains large for gestational age. Per visit. Joana Ocampo APRN.CNM Abnormal glucose in , antepartum 03/04/2020 11/30/2020 Overview: 03/04/20-Elevated early 1hr GCT 154, 3hr GTT ordered. Joana Ocampo APRN.CNM Uterine size-date discrepanc y, first trimester 03/03/2020 11/30/2020 Overview: 03/03/20- LMP inconsistent with US, formal dating US in 2 weeks. Joana Ocampo APRN.CNM History of gestational diabe tammi in prior , currently 02/27/2020 11/30/2020 Overview: 03/03/20-1hr GCT at NOB visit. Joana Ocampo APRN.CNM 02/27/2020Patient had gestational diabetes with her last . She will plan on doing a 1 hour glucose test at her new OB appointment. TKRN History of gestational diabetes mellitus 10/23/2018 03/03/2020 Gestational diabetes mellitus, class A1 07/19/2018 11/30/2020 Overview: 09/22/20 - LGA on growth US, [facility] recommends delivery at 39 weeks if remains LGA - Vincent Rubio MD 03/19/20-failed 3-hour GTT. History of GDM class A1 with last . 11/19/18 had 2hr GTT at [facility] and normal, lab scanned into chart. Reviewed GDM diagnosis with patient. She feels she is knowledgeable about diagnosis, testing, and diet. Declines consultation with art educator and cigarette tester. She will check fasting blood sugars and 2-hour postprandials 3 times a day and bring to next visit.Joana Ocampo APRN.CNM documented as of this encounter (statuses as of 02/16/2023) [facility] Diagnosis Encounter for gynecological examination (general) (routine) without abnormal findings- Primary Diastasis recti Diastasis of muscle control counseling General counseling for initiation of other contraceptive measures Evaluation for contraception barrier or spermicide General counseling for initiation of other contraceptive measures documented [facility] this encounter [facility]* Diagnosis 7 weeks gestation of - Primary state, incidental History of gestational diabetes mellitus Personal history of gestational diabetes History of macrosomia in in prior , currently with other poor obstetric history [facility] Diagnosis with uncertain dates in first trimester- Primary [facility] Diagnosis 7 weeks gestation of state, incidental [facility] Diagnosis 11 weeks gestation of - Primary state, incidental Advanced maternal age in multigravida, first trimester [facility] Diagnosis 17 weeks gestation of - Primary state, incidental [facility] Diagnosis 22 weeks gestation of - Primary state, incidental [facility]* Diagnosis Elevated glucose- Primary Other abnormal glucose [facility] Diagnosis 30 weeks gestation of - Primary state, incidental [facility]* Diagnosis Multigravida of advanced maternal age in third trimester- Primary Gestational diabetes mellitus, class A1 Abnormal maternal glucose tolerance, complicating , childbirth, or the puerperium, unspecified as to episode of care 32 weeks gestation of state, incidental [facility] Diagnosis 35 weeks gestation of - Primary state, incidental Multigravida of advanced maternal age in third trimester Gestational diabetes mellitus, class A1 Abnormal maternal glucose tolerance, complicating , childbirth, or the puerperium, unspecified as to episode of care [facility]* Diagnosis GDM, class A2- Primary Abnormal maternal glucose tolerance, complicating , childbirth, or the puerperium, unspecified as to episode of care [facility] Diagnosis GDM, class A2- Primary Abnormal maternal glucose tolerance, complicating , childbirth, or the puerperium, unspecified as to episode of care Multigravida of advanced maternal age in third trimester 37 weeks gestation of state, incidental [facility]* Diagnosis GDM, class A2- Primary Abnormal maternal glucose tolerance, complicating , childbirth, or the puerperium, unspecified as to episode of care Multigravida of advanced maternal age in third trimester 38 weeks gestation of state, incidental [facility]* Diagnosis care and examination- Primary Routine follow-up History of gestational diabetes Personal history of gestational diabetes [facility] Diagnosis Encounter for gynecological examination (general) (routine) without abnormal findings- Primary Surveillance for control, vasectomy Surveillance of other previously prescribed contraceptive method documented in this encounter [facility] note* Diagnosis Fever, unspecified fever cause- Primary URI, acute Acute upper respiratory infections of unspecified site documented in this encounter [facility] Diagnostic Procedure Only (Routine) - Authorized Specialty Diagnoses / Procedures Referred By Contac t Referred To Contact [facility] Diagnoses 7 weeks gestation of Procedures OBSTETRIC ULTRASOUND WHI US PREG UTERUS AFTER 1ST TRIMEST GESTATION Joana Ocampo APRN.CNM [address] [place] [address] [place] [address] Referral ID Status Reason Start Date Expiration Date Visits Requested Visits Authorized [id number] Authorized Auto-Generat ed Referral 07/20/2022 07/20/2023 1 [facility] Diagnostic Procedure Only (Routine) - Authorized Specialty Diagnoses / Procedures Referred By Contac t Referred To Contact [facility] Diagnoses 11 weeks gestation of Advanced maternal age in multigravida, first trimester Procedures OBSTETRIC ULTRASOUND WHI US PREG UTERUS AFTER 1ST TRIMEST GESTATION Joana Ocampo APRN.CNM [address] [place] [address] [address] [place] [address] Referral ID Status Reason Start Date Expiration Date Visits Requested Visits Authorized [id number] Authorized Auto-Generat ed Referral 08/17/2022 08/17/2023 1 1 [facility] for referral (narrative)* Diagnostic Procedure Only (Routine) - Authorized Specialty Diagnoses / Procedures Referred By Contac t Referred To Contact [facility] Diagnoses 32 weeks gestation of Multigravida of advanced maternal age in third trimester Gestational diabetes mellitus, class A1 Procedures OBSTETRIC ULTRASOUND WHI US PREG UTERUS AFTER 1ST TRIMEST GESTATION Ana Cristina Contreras MD [address] [place] [address] [address] Referral ID Status Reason Start Date Expiration Date Visits Requested Visits Authorized [id number] Authorized Auto-Generat ed Referral 01/03/2023 01/03/2024 1 1 [facility] for visit Narrative* Diagnostic Procedure Only (Routine) - Closed Specialty Diagnoses / Procedures Referred By Contac t Referred To Contact [facility] Diagnoses 7 weeks gestation of Procedures OBSTETRIC ULTRASOUND WHI US PREG UTERUS AFTER 1ST TRIMEST GESTATION Joana Ocampo APRN.CNM [address] [place] [address] [address] Referral ID Status Reason Start Date Expiration Date V isits Requested Visits Authorized [id number] Closed Auto-Generate d Referral 07/20/2022 07/20/2023 1 1 [facility] Reason for Referral Specialty Diagnoses / Procedures Referred By Contac t Referred To Contact [facility] Diagnoses Diastasis recti Procedures CONSULT TO PHYSICAL THERAPY PHYSICAL THERAPY EVALUATION HIGH COMPLEX 45 MINS Joana Ocampo APRN.CNM [address] [place] [address] [facility] [place] [address] [place] [address] Referral ID Status Reason Start Date Expiration Date Visits Requested Visits Authorized [id number] Pending Review Auto-Generat ed Referral 2 03/28/2023 1 1 Specialty Diagnoses / Procedures Referred By Edward salter Referred To Contact Diagnoses History of gestational diabetes Procedures CONSULT TO PREVENTIVE CARD OFFICE/OUTPATIENT [facility] MDM 60-74 MINUTES Joana Ocampo APRN.TRACY [address] [place] [address] Referral ID Status Reason Start Date Expiration Date Visits Requested Visits Authorized [id number] Authorized PCP Requested Referral 3 04/01/2023 1 [...] this informatio n is protected by the Former[facility] Confidentiality of Alcohol and Drug Abuse Patient Records regulations: The Federal rules restrict any use of the information to criminally investigate or prosecute any alcohol or drug abuse patient.[facility] the event this information is protected by the Federal Confidentiality of Alcohol and Drug Abuse Patient Records regulations: The Federal rules restrict any use of the information to criminally investigate or prosecute any alcohol or drug abuse patient.[facility] the event this information is protected by the Federal Confidentiality of Alcohol and Drug Abuse Patient Records regulations: The Federal rules restrict any use of the information to criminally investigate or prosecute any alcohol or drug abuse patient.[facility] the event this information is protected by the Federal Confidentiality of Alcohol and Drug Abuse Patient Records regulations: The Federal rules restrict any use of the information to criminally investigate or prosecute any alcohol or drug abuse patient.[facility] the event this information is protected by the Federal Confidentiality of Alcohol and Drug Abuse Patient Records regulations: The Federal rules restrict any use of the information to criminally investigate or prosecute any alcohol or drug abuse patient.[facility] the event this information is protected by the Federal Confidentiality of Alcohol and Drug Abuse Patient Records regulations: The Federal rules restrict any use of the information to criminally investigate or prosecute any alcohol or drug abuse patient.[facility] the event this information is protected by the Federal Confidentiality of Alcohol and Drug Abuse Patient Records regulations: The Federal rules restrict any use of the information to criminally investigate or prosecute any alcohol or drug abuse patient.[facility] the event this information is protected by the Federal Confidentiality of Alcohol and Drug Abuse Patient Records regulations: The Federal rules restrict any use of the information to criminally investigate or prosecute any alcohol or drug abuse patient.[facility] the event this information is protected by the Federal Confidentiality of Alcohol and Drug Abuse Patient Records regulations: The Federal rules restrict any use of the information to criminally investigate or prosecute any alcohol or drug abuse patient.[facility] the event this information is protected by the Federal Confidentiality of Alcohol and Drug Abuse Patient Records regulations: The Federal rules restrict any use of the information to criminally investigate or prosecute any alcohol or drug abuse patient.[facility] the event this information is protected by the Federal Confidentiality of Alcohol and Drug Abuse Patient Records regulations: The Federal rules restrict any use of the information to criminally investigate or prosecute any alcohol or drug abuse patient.[facility] the event this information is protected by the Federal Confidentiality of Alcohol and Drug Abuse Patient Records regulations: The Federal rules restrict any use of the information to criminally investigate or prosecute any alcohol or drug abuse patient.[facility] Hospital[facility] the event this information is protected by the Federal Confidentiality of Alcohol and Drug Abuse Patient Records regulations: The Federal rules restrict any use of the information to criminally investigate or prosecute any alcohol or drug abuse patient.[facility] Hospital[facility] the event this information is protected by the Federal Confidentiality of Alcohol and Drug Abuse Patient Records regulations: The Federal rules restrict any use of the information to criminally investigate or prosecute any alcohol or drug abuse patient.[facility] Hospital[facility] the event this information is protected by the Federal Confidentiality of Alcohol and Drug Abuse Patient Records regulations: The Federal rules restrict any use of the information to criminally investigate or prosecute any alcohol or drug abuse patient.[facility] Hospital[facility] the event this information is protected by the Federal Confidentiality of Alcohol and Drug Abuse Patient Records regulations: The Federal rules restrict any use of the information to criminally investigate or prosecute any alcohol or drug abuse patient.[facility] Hospital[facility] the event this information is protected by the Federal Confidentiality of Alcohol and Drug Abuse Patient Records regulations: The Federal rules restrict any use of the information to criminally investigate or prosecute any alcohol or drug abuse patient.[facility] the event this information is protected by the Federal Confidentiality of Alcohol and Drug Abuse Patient Records regulations: The Federal rules restrict any use of the information to criminally investigate or prosecute any alcohol or drug abuse patient.[facility] Hospital[facility] the event this information is protected by the Federal Confidentiality of Alcohol and Drug Abuse Patient Records regulations: The Federal rules restrict any use of the information to criminally investigate or prosecute any alcohol or drug abuse patient.[facility] Hospital[facility] the event this information is protected by the Federal Confidentiality of Alcohol and Drug Abuse Patient Records regulations: The Federal rules restrict any use of the information to criminally investigate or prosecute any alcohol or drug abuse patient.[facility] Hospital[facility] the event this information is protected by the Federal Confidentiality of Alcohol and Drug Abuse Patient Records regulations: The Federal rules restrict any use of the information to criminally investigate or prosecute any alcohol or drug abuse patient.[facility] Hospital[facility] the event this information is protected by the Federal Confidentiality of Alcohol and Drug Abuse Patient Records regulations: The Federal rules restrict any use of the information to criminally investigate or prosecute any alcohol or drug abuse patient.[facility] Hospital[facility] the event this information is protected by the Federal Confidentiality of Alcohol and Drug Abuse Patient Records regulations: The Federal rules restrict any use of the information to criminally investigate or prosecute any alcohol or drug abuse patient.[facility] Reason for Visit (unrecogniz ed section and content) Specialty Diagnoses / Procedures Referred By Edward t Referred To Contact CLAIMS INVESTIGATOR Diagnoses discuss control Procedures EST [facility] PATIENT Joana Ocampo APRN.CNM [address] [place] [address] Ocampo JoanaHUSSEIN james.CNM [address] [place] [address] Referral ID Status Reason Start Date Expiration Date Visits Re quested Visits Authorized [id number] Closed 03/25/2022 05/07/2022 1 1 Reason Comments 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 Reason Onset Date Comments Care 08/17/2022 Reason Onset Date Comments Care 09/19/2022 Reason Onset Date Comments Care 10/24/2022 Reason Comments OB Bee Sting Reason Comments Results Reason Onset Date Comments Care 12/19/2022 Reason Onset Date Comments Care 01/03/2023 Reason Onset Date Comments Care 01/20/2023 Reason Comments Patient Update Reason Comments US Specialty Diagnoses / Procedures Referred By Edward t Referred To Contact [facility] Diagnoses Multigravida of advanced maternal age in third trimester GDM, class A2 Procedures BIOPHYSICAL PROFILE US [facility] BIOPHYSICAL PROFILE NON-STRESS TESTING Mariam Coyle APRN.CNM [address] [place] [address] [facility] [address] [place] [address] Referral ID Status Reason Start Date Expiration Date Visits Requested Visits Authorized [id number] Authorized Auto-Generat ed Referral 02/06/2023 05/07/2023 10 10 Reason Comments Ob Delivery Note Reason Comments Routine Reason Comments Yearly Exam Reason Comments Fever Nausea, body ache, h eadache, mucous cough x 3 days Care Teams (unrecognized sec tion and content) Flat Folder Relationship Specialty Start Date End Date Del Solis MD PCP - General 03/18/09 Flat Folder Relationship Specialty Start Date End Date Del Solis MD PCP - General 03/18/09 Flat Folder Relationship Specialty Start Date End Date Del Solis MD PCP - General 03/18/09 Flat Folder Relationship Specialty Start Date End Date Del Solis MD PCP - General 03/18/09 Flat Folder Relationship Specialty Start Date End Date Del Solis MD PCP - General 03/18/09 Flat Folder Relationship Specialty Start Date End Date Del Solis MD PCP - General 03/18/09 Flat Folder Relationship Specialty Start Date End Date Del Solis MD PCP - General 03/18/09 Flat Folder Relationship Specialty Start Date End Date Del Solis MD PCP - General 03/18/09 Flat Folder Relationship Specialty Start Date End Date Del Solis MD PCP - General 03/18/09 Flat Folder Relationship Specialty Start Date End Date Del Solis MD PCP - General 03/18/09 Flat Folder Relationship Specialty Start Date End Date Del Solis MD PCP - General 03/18/09 Flat Folder Relationship Specialty Start Date End Date Del Solis MD PCP - General 03/18/09 Flat Folder Relationship Specialty Start Date End Date Del Solis MD PCP - General 03/18/09 Flat Folder Relationship Specialty Start Date End Date Del Solis MD PCP - General 03/18/09 Flat Folder Relationship Specialty Start Date End Date Del Solis MD PCP - General 03/18/09 Flat Folder Relationship Specialty Start Date End Date Del Solis MD PCP - General 03/18/09 Flat Folder Relationship Specialty Start Date End Date Del Hernandez MD [address] [place] [address] PCP - [facility] Family Medicine 02/13/23 Flat Folder Relationship Specialty Start Date End Date Del Hernandez MD [address] [place] [address] PCP - [facility] Family Medicine 02/13/23 Flat Folder Relationship Specialty Start Date End Date Del Hernandez MD [address] [place] [address] PCP - [facility] Family Medicine 02/13/23 Flat Folder Relationship Specialty Start Date End Date Del Hernandez MD [address] [place] [address] PCP - [facility] Family [facility] 02/13/23 INFORMATION SOURCE (unrecogn ized section and content) DATE CREATED AUTHOR 10/21/2023 [facility] FOR RECORDS PERTAINING TO PATIENTS WHO ARE [...] BE BASED ON THE PRIMARY CLINICAL RECORDS. [facility] [employer] [facility]. provides no warranty or guarantee of the accuracy or completeness of information in this document.
[2024-03-06 12:14] LABS: Absolute Lymphocyte Count 1.69 X10^3/uL (0.83-4.51); Absolute Neutrophil Count 4.8 X10^3/uL (2.0-7.7); Basophil# 0.04 X10^3/uL; Basophil% 0.6 % (0-1); Eosinophil# 0.18 X10^3/uL; Eosinophils% 2.5 % (0-5); Hematocrit 36.6 % (37-47); Hemoglobin 12.4 g/dL (12.0-15.0); Lymphocyte # 1.69 X10^3/ul (0.83-4.51); Lymphocyte % 23.6 % (19-41); Mean Corp Hgb Conc 33.9 g/dL (32-36); Mean Corpuscular Hgb 32.5 pg (27.0-32.0); Mean Corpuscular Volume 95.8 fL (81-99); Mean Platelet Vol. 10.2 fl (6.2-12.0); Monocyte# 0.46 X10^3/uL; Monocyte% 6.4 % (0-10); NRBC Flagged by Analyzer 0 % (0-5); Neutrophil # 4.76 X10^3/uL (2.7-7.7); Neutrophil % 66.6 % (47-70); Platelet Count 265 K/mm3 (150-450); RBC Distribution Width CV 11.9 % (11.6-14.6); RBC Distribution Width SD 41.4 fl (35.1-43.9); Red Blood Count 3.82 M/mm3 (4.2-5.4); White Blood Count 7.2 K/mm3 (4.4-11.0)
[2024-03-06 12:42] LABS: Vitamin B12 766 pg/mL (211-911); Vitamin D,25 Hydroxy 28.1 ng/mL
[2024-03-06 12:56] LABS: ALB/GLOB Ratio 1.1 RATIO (0.9-2.4); AST(SGOT) 17 U/L (15-37); Alanine Aminotransfer ALT/SGPT 20 U/L (13-56); Albumin, Serum 3.9 g/dL (3.2-5.0); Alkaline Phosphatase 101 U/L (45-117); Anion Gap 4 (5-15); BUN 18 mg/dL (7-18); BUN/Creat Ratio 31.2 RATIO (10-20); Calcium,Total 9.2 mg/dL (8.5-10.1); Chloride 107 mmol/L (98-107); Creatinine, Serum 0.58 mg/dL (0.55-1.02); EST Glomerular Filtration Rate 126 mL/min (>60); Est Glom Filt Rate - Afr Amer 152 mL/min (>60); Globulin 3.5 g/dL (2.2-4.2); Glucose 88 mg/dL (74-106); Potassium 3.9 mmol/L (3.5-5.1); Protein, Total 7.4 g/dL (6.4-8.2); Sodium Level 138 mmol/L (136-145); T4 Free Direct 0.85 ng/dL (0.76-1.46); Thyroid Stim Hormone (TSH) 0.951 uIU/mL (0.358-3.740)
== END | disposition home or self-care (01) ==
LOC: MFPLAB 10:31
PROVIDERS: PCP Family Medicine; Referring Provider Family Medicine; Visit Provider Family Medicine
DX: R53.83 Other fatigue (principal); E55.9 Vitamin D deficiency, unspecified
CPT/HCPCS: 36415; 80053; 82306; 82607; 84439; 84443; 85025

== ENCOUNTER → 2024-09-04 | Outpatient (CLI) | payer BC, SELFPAY ==
[2024-09-04 13:33] LABS: ALB/GLOB Ratio 1.7 RATIO (0.9-2.4); AST(SGOT) 21 U/L (<=31); Alanine Aminotransfer ALT/SGPT 15 U/L (<=34); Albumin, Serum 4.5 g/dL (3.5-5.0); Alkaline Phosphatase 76 U/L (35-104); Anion Gap 10 (5-15); BUN 14 mg/dL (4-19); Calcium,Total 9.3 mg/dL (7.6-11.0); Chloride 106 mmol/L (98-108); EST Glomerular Filtration Rate 119 (>60); Globulin 2.6 g/dL (2.2-4.2); Glucose 79 mg/dL (70-99); Potassium 3.9 mmol/L (3.3-5.1); Protein, Total 7.2 g/dL (5.9-8.4); Sodium Level 138 mmol/L (133-145); Total Bilirubin 0.78 mg/dL (0.00-1.30); Vitamin D,25 Hydroxy 28.7 ng/mL (30-100)
== END | disposition home or self-care (01) ==
PROVIDERS: PCP Family Medicine; Referring Provider Family Medicine; Visit Provider Family Medicine
DX: E55.9 Vitamin D deficiency, unspecified (principal)
CPT/HCPCS: 36415; 80053; 82306

== ENCOUNTER → 2025-03-07 | Outpatient (CLI) | payer BC, SELFPAY ==
[2025-03-07 13:10] LABS: AST(SGOT) 20 U/L (<=31); Alanine Aminotransfer ALT/SGPT 16 U/L (<=34); Albumin, Serum 4.5 g/dL (3.5-5.0); Alkaline Phosphatase 71 U/L (35-104); Anion Gap 10 (5-15); BUN 11 mg/dL (4-19); BUN/Creat Ratio 19.5 RATIO (10-20); Calcium,Total 9.5 mg/dL (7.6-11.0); Carbon Dioxide 25.1 mmol/L (21.0-32.0); Chloride 104 mmol/L (98-108); Globulin 2.8 g/dL (2.2-4.2); Glucose 100 mg/dL (70-99); Potassium 3.8 mmol/L (3.3-5.1); Vitamin D,25 Hydroxy 36.2 ng/mL (30-100)
== END | disposition home or self-care (01) ==
LOC: MFPLAB 10:17
PROVIDERS: PCP Family Medicine; Visit Provider Family Medicine
DX: E55.9 Vitamin D deficiency, unspecified (principal)
CPT/HCPCS: 36415; 80053; 82306